=== PATIENT | female | born 1955 ===

== ENCOUNTER 2020-07-31 13:17 | Emergency (ER) | payer MEDICARE, SELFPAY ==
[2020-07-31 14:06] VITALS: BP 161/84; PULSE 77; RESP 16; TEMP 37.7; O2SAT 99; BMI 26.5
--- NOTE | 2020-07-31 15:11 | ED_ITS ---
HPI - General Adult General Chief complaint: Weakness Stated complaint: abd pain Time Seen by Provider: 07/31/20 15:11 Source: patient Mode of arrival: ambulatory Limitations: no limitations History of Present Illness HPI narrative: pleasant 65-year-old female with past medical significant for hypertension, depression, anxiety disorder, asthma, hypothyroidism, TIA in the past presents with complaint of body aches/chills for past couple days family member at home sick with similar symptoms they get tested for COVID-19 but have not gotten the results yet. Patient reports feeling same symptoms. Onset (ago): day(s) Severity: moderate Relieving factors: none Exacerbating factors: none Associated symptoms: denies other symptoms Related Data Allergies Allergy/AdvReac Type Severity Reaction Status Date / Time honey [HONEY] Allergy Severe RASH Unverified 06/21/20 15:27 morphine [Morphine] Allergy Severe ITCHING, Unverified 06/21/20 15:27 INCREASE ANXIETY, HALLUCINATION oxycodone [OXYCODONE] Allergy Intermediate ITCHING, Unverified 06/21/20 15:27 INCREASE ANXIETY. amoxicillin [Amoxicillin] Allergy Mild SWELLING Unverified 06/21/20 15:27 milk [Milk] AdvReac Mild DIARRHEA, Unverified 06/21/20 15:27 ABDOMINAL PAIN (REGULAR MILK ONLY) Review of Systems Review of Systems: Constitutional: No Weight loss, No Fever, + Chills, No Night Sweats, No Fatigue, + Malaise ENT/Mouth: No Hearing loss, No Ear Pain, No Nasal Congestion, No Sinus Pain, No Hoarseness, No sore throat, No Rhinorrhea, No Swallowing Difficulty Eyes: No Eye Pain, No Swelling, No Redness, No Foreign Body, No Discharge, No Vision Changes Cardiovascular: No Chest Pain, No SOB, No Dyspnea on Exertion, No Orthopnea, No Edema, No Palpitations Respiratory: No Cough, No Sputum, No Wheezing, No Smoke Exposure, No Dyspnea Gastrointestinal: No Nausea, No Vomiting, No Diarrhea, No Constipation, No abdominal Pain, No Hematochezia, No Melena Genitourinary: no irregular bleeding, No Dysuria, No Urinary Frequency, No Hematuria, No Urinary Incontinence, No Urgency, No Flank Pain, No Urinary Flow Changes, No Hesitancy Musculoskeletal: No joint pain, No Myalgias, No Joint Swelling Skin: No Skin Lesions, No rash Neuro: No Weakness, No Numbness, No Paresthesias, No Loss of Consciousness, No Dizziness, No Headache Psych: No Anxiety/Panic Heme/Lymph: No Bruising, No Bleeding,No Lymphadenopathy Endocrine: No Polyuria, No Polydipsia, No Temperature Intolerance Yes all other systems are reviewed and are negative [facility] Past Medical History Attestation statement: The following information was validated with the patient. Medical History (Updated 07/31/20 @ 18:30 by Artie Friedman NP) Adult hypothyroidism Asthma Colitis Hypertension Surgical History (Updated 07/31/20 @ 14:11 by Theo Fuentes) H/O section H/O: hysterectomy History of appendectomy History of cholecystectomy Social History Social History Smoking Status: Never smoker Use of substances other than those prescribed or required for medical reasons: No Advance Directives: No Advance Directives Information Provided: No Physical Exam Vital Signs: Vital Signs: Vital Signs Temp Pulse Resp BP Pulse Ox 07/31/20 17:42 98 F 76 16 164/77 H 07/31/20 17:10 98.4 F 71 16 164/77 H 99 07/31/20 14:06 99.8 F 77 16 161/84 H 99 Body Mass Index 26.5 reviewed Const: General: cooperative and healthy appearing; No acute distress or intoxicated appearing Nutritional Appearance: average body habitus Orientation/consciousness: patient oriented x3 HENMT: Head: Yes normal to inspection Ears: hearing grossly normal bilaterally Eyes: General: appearance normal, both eyes and all related structures Visual Marc: normal visual marc by confrontation Neck: Neck: Yes normal visual inspection, No positive Brudzinski's sign, No positive Kernig's sign and No tender Thyroid: Thyroid normal Chest: Chest palpation & inspection: normal inspection of the chest Resp: Effort & Inspection: normal respiratory effort Cardio: Jugular venous distension: no JVD GI: Inspection: Yes normal to inspection Percussion: Yes normal to percussion Auscultation: normal bowel sounds : General: Yes no CVA tenderness Back/Spine/Pelvis: Back: no CVA tenderness Skin: General skin exam: no rashes or lesions noted Neuro: General: patient oriented x3 Extrem: General: Yes normal to inspection Course Course Course Narrative: Left stable. Hemodynamically stable. In no acute distress. A/P consistent with viral syndrome type symptoms. COVID-19 negative. Hemodynamically stable plans/findings reviewed. With the negative test possibility still rest that she could still have COVID-19 cleared discharge return/follow-up instructions as well as CDC guidelines for self- isolation/social distancing provided. She verbalized understanding. Medical Decision Making Lab Data Result diagrams: 07/31/20 15:34 07/31/20 15:34 Labs: Lab Results 07/31/20 07/31/20 07/31/20 Range/Units 15:33 15:33 15:34 WBC 5.7 (4.8-10.8) X10*3/uL RBC 4.27 (4.20-5.50) X10*6/uL Hgb 12.7 (12.0-16.0) g/dl Hct 39.0 (37-47) % MCV 91.3 (80-98) fL MCH 29.7 (27.0-33.0) pg MCHC 32.6 (31.0-35.0) g/dl RDW 11.9 (11.0-16.0) % Plt Count 163 (160-400) X10*3/uL MPV 12.3 (9.4-12.3) fL Immature Gran % (Auto) 0.2 (0.0-0.4) % Neut % (Auto) 69.6 (45-73) % Lymph % (Auto) 21.2 (20-40) % [place] % (Auto) 8.8 (2-11) % Eos % (Auto) 0.0 (0-4) % Baso % (Auto) 0.2 (0-2) % Lymph # (Auto) 1.2 (1.2-4.9) X10*3/uL [place] # (Auto) 0.5 (0.1-1.2) X10*3/uL Eos # (Auto) 0.0 (0.0-0.4) X10*3/uL Baso # (Auto) 0.0 (0.0-0.2) X10*3/uL Abs Immat Gran (auto) 0.01 (0.00-0.03) X10*3/uL Absolute Neuts (auto) 4.0 (2.0-8.3) X10*3/uL Absolute Nucleated RBC 0.000 (0.0-0.012) X10*3/uL Nucleated RBC % (auto) 0.0 (0.0-0.2) /100WBC Sodium (135-145) mmol/L Potassium (3.3-5.1) mmol/l Chloride (96-108) mmol/L Carbon Dioxide (22-29) mmol/L Anion Gap (12-20) BUN (9-16) mg/dL Creatinine (0.5-1.4) mg/dL Estim Creat Clear Calc Estimated GFR Random Glucose (60-115) mg/dL Calcium (8.4-10.2) mg/dL Total Bilirubin (0.0-1.0) mg/dL AST (5-31) U/L ALT (0-31) U/L Alkaline Phosphatase (39-117) U/L Troponin I High Sens (<3.5-17.0) ng/L Total Protein (6.5-8.0) g/dL Albumin (3.5-5.0) g/dL Urine Color Urine Appearance Urine pH (5.0-8.0) Ur Specific [place] (1.005-1.025) Urine Protein (NEG-TRACE) MG/DL Urine Glucose (UA) (NEG) MG/DL Urine Ketones (NEG) MG/DL Urine Blood (NEG) Urine Nitrite (NEG) Ur Leukocyte Esterase (NEG) Urine RBC (0) /HPF Urine WBC (0-4) /HPF Ur Squamous Epith Cells /LPF Urine Bacteria /LPF Coronavirus (PCR) NEGATIVE (Negative) COVID-19 PCR Cancelled Influenza Type A (PCR) NEGATIVE (Negative) Influenza Type B (PCR) NEGATIVE (Negative) Influenza A & B Note See Note RSV RNA Qual (PCR) NEGATIVE (Negative) 07/31/20 07/31/20 07/31/20 Range/Units 15:34 15:34 17:11 WBC (4.8-10.8) X10*3/uL RBC (4.20-5.50) X10*6/uL Hgb (12.0-16.0) g/dl Hct (37-47) % MCV (80-98) fL MCH (27.0-33.0) pg MCHC (31.0-35.0) g/dl RDW (11.0-16.0) % Plt Count (160-400) X10*3/uL MPV (9.4-12.3) fL Immature Gran % (Auto) (0.0-0.4) % Neut % (Auto) (45-73) % Lymph % (Auto) (20-40) % [place] % (Auto) (2-11) % Eos % (Auto) (0-4) % Baso % (Auto) (0-2) % Lymph # (Auto) (1.2-4.9) X10*3/uL [place] # (Auto) (0.1-1.2) X10*3/uL Eos # (Auto) (0.0-0.4) X10*3/uL Baso # (Auto) (0.0-0.2) X10*3/uL Abs Immat Gran (auto) (0.00-0.03) X10*3/uL Absolute Neuts (auto) (2.0-8.3) X10*3/uL Absolute Nucleated RBC (0.0-0.012) X10*3/uL Nucleated RBC % (auto) (0.0-0.2) /100WBC Sodium 138 (135-145) mmol/L Potassium 3.7 (3.3-5.1) mmol/l Chloride 102 (96-108) mmol/L Carbon Dioxide 24 (22-29) mmol/L Anion Gap 16 (12-20) BUN 17 H (9-16) mg/dL Creatinine 0.87 (0.5-1.4) mg/dL Estim Creat Clear Calc 55.8 Estimated GFR > 60 Random Glucose 102 (60-115) mg/dL Calcium 8.3 L (8.4-10.2) mg/dL Total Bilirubin 0.6 (0.0-1.0) mg/dL AST 65 H (5-31) U/L ALT 48 H (0-31) U/L Alkaline Phosphatase 69 (39-117) U/L Troponin I High Sens 6.2 (<3.5-17.0) ng/L Total Protein 7.4 (6.5-8.0) g/dL Albumin 4.0 (3.5-5.0) g/dL Urine Color YELLOW Urine Appearance CLEAR Urine pH 6.5 (5.0-8.0) Ur Specific [place] 1.020 (1.005-1.025) Urine Protein NEG (NEG-TRACE) MG/DL Urine Glucose (UA) NEG (NEG) MG/DL Urine Ketones 15 (NEG) MG/DL Urine Blood NEG (NEG) Urine Nitrite NEG (NEG) Ur Leukocyte Esterase NEG (NEG) Urine RBC 0-2 (0) /HPF Urine WBC 1-4 (0-4) /HPF Ur Squamous Epith Cells 4+ /LPF Urine Bacteria NONE /LPF Coronavirus (PCR) (Negative) COVID-19 PCR Influenza Type A (PCR) (Negative) Influenza Type B (PCR) (Negative) Influenza A & B Note RSV RNA Qual (PCR) (Negative) Discharge Plan Discharge Clinical Impression: Viral syndrome Patient Disposition: Home, Self-Care Instructions: Viral Syndrome (ED) Additional Instructions: Push fluids Take medication prescribed Return if any concerns or worsening symptoms Thank you Referrals: Wesley Gonzalez MD [Primary Care Provider] - 1 week (Phone visit )
--- NOTE | 2020-07-31 15:14 | XR_ITS ---
EXAMINATION: XR CHEST CLINICAL INFORMATION: Weakness. COMPARISON: Chest 06/06/2020 TECHNIQUE: Frontal view of the chest was obtained. FINDINGS: No significant abnormality is noted involving the heart, lungs, mediastinum, bony thorax or soft tissues. XR/XR chest 1V IMPRESSION: Unremarkable chest examination.
--- NOTE | 2020-07-31 15:17 | ECG_ITS ---
Test Reason : WEAKNESS Blood Pressure : / mmHG Vent. Rate : 071 BPM Atrial Rate : 071 BPM P-R Int : 130 ms QRS Dur : 098 ms QT Int : 416 ms P-R-T Axes : 002 -15 035 degrees QTc Int : 452 ms Normal sinus rhythm Left axis deviation Nonspecific ST abnormality Lateral leads Abnormal ECG When compared with ECG of 06-JUN-2020 23:35, No significant change was found Referred By: Artie Friedman Electronically Signed By:SHANE TRACY MD
[2020-07-31] MEDS: 0.9 % Sodium Chloride 500 ML 1000 ML IV (15:41)
[2020-07-31 15:43] LABS: MANUAL DIFF FLAG NO
--- NOTE | 2020-07-31 15:43 | PC.NURSE ---
iv fluids runing, ekg completed
[2020-07-31 15:44] LABS: Basophils Percent Auto 0.2 % (0-2); Hemoglobin 12.7 g/dl (12.0-16.0); Imm Gran Abs Auto 0.01 X10*3/uL (0.00-0.03); Imm Gran Pct Auto 0.2 % (0.0-0.4); Lymphocytes Absolute Auto 1.2 X10*3/uL (1.2-4.9); Lymphocytes Percent Auto 21.2 % (20-40); Mean Corpuscular HGB Conc 32.6 g/dl (31.0-35.0); Mean Corpuscular Hemoglobin 29.7 pg (27.0-33.0); Mean Corpuscular Volume 91.3 fL (80-98); Mean Platelet Volume 12.3 fL (9.4-12.3); Monocytes Absolute Auto 0.5 X10*3/uL (0.1-1.2); Monocytes Percent Auto 8.8 % (2-11); Neutrophils Percent Auto 69.6 % (45-73); Platelet Count 163 X10*3/uL (160-400); Red Blood Count 4.27 X10*6/uL (4.20-5.50); Red Cell Distribution Width 11.9 % (11.0-16.0); White Blood Count 5.7 X10*3/uL (4.8-10.8)
--- NOTE | 2020-07-31 15:47 | PC.NURSE ---
PT IS CALM AND COOPERATIVE
[2020-07-31 16:12] LABS: Troponin-I High Sensitivity 6.2 ng/L (<3.5-17.0)
[2020-07-31 16:13] LABS: Alanine Aminotransferase 48 U/L (0-31); Alkaline Phosphatase 69 U/L (39-117); Anion Gap 16 (12-20); Aspartate Amino Transferase 65 U/L (5-31); Bilirubin Total 0.6 mg/dL (0.0-1.0); Blood Urea Nitrogen 17 mg/dL (9-16); Calcium 8.3 mg/dL (8.4-10.2); Carbon Dioxide 24 mmol/L (22-29); Chloride 102 mmol/L (96-108); Creatinine Clr Calc Pharmacy 55.8; Estimated Glomerular Filt Rate > 60; Glucose Random 102 mg/dL (60-115); Potassium 3.7 mmol/l (3.3-5.1); Sodium 138 mmol/L (135-145); Total Protein 7.4 g/dL (6.5-8.0)
[2020-07-31 16:18] LABS: Influenza A PCR NEGATIVE (Negative); Influenza B PCR NEGATIVE (Negative)
[2020-07-31 16:23] LABS: Resp Syncy Virus RNA Qual PCR NEGATIVE (Negative)
[2020-07-31 16:43] LABS: SARS COV2 PCR INHOUSE NEGATIVE (Negative)
[2020-07-31] MEDS: Acetaminophen 325 MG TABLET 975 MG PO (16:46)
[2020-07-31 17:10] VITALS: BP 164/77; PULSE 71; RESP 16; TEMP 36.9; O2SAT 99
[2020-07-31 17:27] LABS: Glucose Urine UA NEG (NEG); Leukocyte Esterase Urine NEG (NEG); Nitrite Urine NEG (NEG); PH 6.5 (5.0-8.0); Urine Blood NEG (NEG); Urine Ketones 15 MG/DL (NEG); Urine Protein NEG (NEG-TRACE)
[2020-07-31 17:29] LABS: Appearance Urine CLEAR; Color Urine YELLOW
[2020-07-31 17:35] LABS: RBC Urine 0-2 /HPF (0); Squamous Epithelial Cell Urine 4+ /LPF
[2020-07-31 17:42] VITALS: BP 164/77; PULSE 76; RESP 16; TEMP 36.6
== END 2020-07-31 18:44 | disposition home or self-care (01) ==
PROVIDERS: Nurse Practitioner Primary Care; Emergency Provider Internal Medicine; PCP Internal Medicine
DX: B34.9 Viral infection, unspecified (principal); I10 Essential (primary) hypertension; J45.909 Unspecified asthma, uncomplicated; Z20.828 Contact with and (suspected) exposure to other viral communicable diseases; Z79.899 Other long term (current) drug therapy
CPT/HCPCS: 36415; 71045; 80053; 81001; 84484; 85025; 87631; 87635; 93005; 99283; 99284

== ENCOUNTER 2021-04-11 14:44 | Emergency (ER) | payer MEDICARE, SELFPAY ==
[2021-04-11 15:38] VITALS: BP 156/69; PULSE 60; RESP 17; TEMP 36.4; O2SAT 98; BMI 29.2
--- NOTE | 2021-04-11 16:34 | ED.BACK ---
HPI - Back Pain/Injury General Chief Complaint: Back Pain/Injury Stated Complaint: sharp back pain Time Seen by Provider: 04/11/21 16:34 History of Present Illness HPI Narrative: patient complains of right-sided back pain radiating to her lower leg similar to many prior episodes after packing and lifting boxes to help someone move 2 days ago, no radiation no numbness no weakness no tingling no changes to bowel or bladder Related Data Previous Rx's Medication Instructions Recorded acetaminophen 500 mg tablet 1,000 mg PO QID PRN #30 tab 04/11/21 diazepam 5 mg tablet (Valium) 5 mg PO Q8H PRN #10 tab 04/11/21 ibuprofen 600 mg tablet 600 mg PO Q6H PRN #20 tab 04/11/21 tramadol 50 mg tablet 50 mg PO Q8H PRN #14 tab 04/11/21 prednisone 20 mg tablet 60 mg PO DAILY 7 Days #21 tab 04/18/21 Allergies Allergy/AdvReac Type Severity Reaction Status Date / Time honey [HONEY] Allergy Severe RASH Verified 04/11/21 15:38 morphine [Morphine] Allergy Severe ITCHING, Verified 04/11/21 15:38 INCREASE ANXIETY, HALLUCINATION oxycodone [OXYCODONE] Allergy Intermediate ITCHING, Verified 04/11/21 15:38 INCREASE ANXIETY. amoxicillin [Amoxicillin] Allergy Mild SWELLING Verified 04/11/21 15:38 milk [Milk] AdvReac Mild DIARRHEA, Verified 04/11/21 15:38 ABDOMINAL PAIN (REGULAR MILK ONLY) Review of Systems Review of Systems: Positive for right-sided back pain Negatives are no fever no chills no dizziness no weakness no fainting no feeling faint no headache no neck pain no chest pain no shortness of breath no abdominal pain no nausea vomiting no dysuria no fever no incontinence no changes to bowel or bladder no frequency no skin rash no numbness weakness or tingling Yes all other systems are reviewed and are negative PMFSH Past Medical History Source: nursing notes reviewed Medical History Adult hypothyroidism Asthma Colitis Hypertension Surgical History H/O section H/O: hysterectomy History of appendectomy History of cholecystectomy Physical Exam Vital Signs: Vital Signs: Last Vital Signs Temp 97.6 F 04/11/21 15:38 Pulse 60 04/11/21 15:38 Resp 17 04/11/21 15:38 BP 156/69 H 04/11/21 15:38 Pulse Ox 98 04/11/21 15:38 Body Mass Index 29.2 General appearance no acute distress Head is normocephalic atraumatic The neck is supple Chest is clear to auscultation bilateral Heart no murmur Abdomen soft nontender The back had right paraspinal lower lumbar tenderness, no midline tenderness no CVA tenderness, pain was reproducible with movement, skin was normal with no rash or redness Extremities full range of motion x4 Neuro no gross motor or sensory deficit, motor was 5/5 x4 Course Course Course Narrative: Well-appearing patient with flare up of back pain similar to many prior episodes is discharged with symptomatic treatment and follow with primary doctor Discharge Plan Discharge Clinical Impression: Lumbar radiculopathy Patient Disposition: Home, Self-Care Additional Instructions: follow with primary doctor for further evaluation Prescriptions: New tramadol 50 mg tablet 50 mg PO Q8H PRN (Reason: pain) Qty: 14 RF: 0 diazepam [Valium] 5 mg tablet 5 mg PO Q8H PRN (Reason: muscle spasm) Qty: 10 RF: 0 ibuprofen 600 mg tablet 600 mg PO Q6H PRN (Reason: pain) Qty: 20 RF: 0 acetaminophen 500 mg tablet 1,000 mg PO QID PRN (Reason: pain) Qty: 30 RF: 0 No Action prednisone 20 mg tablet 60 mg PO DAILY 7 Days Qty: 21 RF: 0 Interventions: ED Discharge Assessment Last Done: 04/11/21 17:01 Discharge Date/Time: 04/11/21 17:02
[2021-04-11] MEDS: Ketorolac Tromethamine 30 MG/ML VIAL IM (16:59)
== END 2021-04-11 17:02 | disposition home or self-care (01) ==
PROVIDERS: Emergency Provider Emergency Medicine Emergency Medical Services; PCP Internal Medicine
DX: M54.16 Radiculopathy, lumbar region (principal)
CPT/HCPCS: 96372; 99284; J1885

== ENCOUNTER 2021-04-18 00:01 | Emergency (ER) | payer MEDICARE, SELFPAY ==
[2021-04-18 00:06] VITALS: BP 151/68; PULSE 78; RESP 18; TEMP 37.5; O2SAT 99; BMI 29.2
--- NOTE | 2021-04-18 01:00 | ED.GENADULT ---
HPI - General Adult General Chief complaint: General Medical Stated complaint: allergic reaction to medication Time Seen by Provider: 04/18/21 00:43 Source: patient Mode of arrival: ambulatory Limitations: no limitations History of Present Illness HPI narrative: 65-year-old female who presents emergency department for evaluation of a painful rash on her lower extremities. The patient was seen in the emergency department on 04/15/2021 for back pain. The patient was given prescriptions for diazepam, tramadol and ibuprofen. She states that she was taking diazepam and tramadol. She states she was taking these medications once a day. She states that on 04/16/2021 she developed a rash on her lower extremities. She states the rash is a sharp painful rash which is gotten progressively worse. She denies pruritus. She denied chest pain, shortness of breath, swelling of her lips, tongue, face. She denied nausea or vomiting. Related Data Previous Rx's Medication Instructions Recorded acetaminophen 1,000 mg PO QID PRN #30 tab 04/11/21 diazepam [Valium] 5 mg PO Q8H PRN #10 tab 04/11/21 ibuprofen 600 mg PO Q6H PRN #20 tab 04/11/21 tramadol 50 mg PO Q8H PRN #14 tab 04/11/21 prednisone 60 mg PO DAILY 7 Days #21 tab 04/18/21 Allergies Allergy/AdvReac Type Severity Reaction Status Date / Time honey [HONEY] Allergy Severe RASH Verified 04/11/21 15:38 morphine [Morphine] Allergy Severe ITCHING, Verified 04/11/21 15:38 INCREASE ANXIETY, HALLUCINATION oxycodone [OXYCODONE] Allergy Intermediate ITCHING, Verified 04/11/21 15:38 INCREASE ANXIETY. amoxicillin [Amoxicillin] Allergy Mild SWELLING Verified 04/11/21 15:38 milk [Milk] AdvReac Mild DIARRHEA, Verified 04/11/21 15:38 ABDOMINAL PAIN (REGULAR MILK ONLY) Review of Systems Review of Systems: Yes all other systems are reviewed and are negative Neurologic: Reports Abnormal speech present [facility] Past Medical History [facility] Narrative: Social history: She denies tobacco, alcohol and drug use. Medical History Adult hypothyroidism Asthma Colitis Hypertension Surgical History H/O section H/O: hysterectomy History of appendectomy History of cholecystectomy Social History Social History Advance Directives: No Advance Directives Information Provided: No Physical Exam Vital Signs: Vital Signs: Last Vital Signs Temp 99.5 F 04/18/21 00:06 Pulse 78 04/18/21 00:06 Resp 18 04/18/21 01:43 BP 151/68 H 04/18/21 00:06 Pulse Ox 99 04/18/21 00:06 Body Mass Index 29.2 Const: General: cooperative Orientation/consciousness: oriented to person and oriented to place Limitations: no limitations HENMT: Head: Yes normal to inspection, Yes normocephalic and Yes atraumatic Ears: external ears normal General nose exam: Normal external nose present Face and sinus: Yes normal facial exam Mouth: Normal oral and palatal mucosa present Throat: Yes posterior oropharynx normal Eyes: Periorbital: periorbital findings normal Eyelids: Yes eyelids normal Conjunctivae: conjunctivae normal Sclerae: sclerae normal Corneas: corneas normal Pupils: Equal, round and reactive pupils present Direct Ophthalmoscopy: normal light reflex Neck: Neck: Yes full ROM, Yes no lymphadenopathy, Yes no meningeal signs, Yes trachea midline and Yes supple Chest: Chest palpation & inspection: normal inspection of the chest and normal palpation of entire chest wall Resp: Effort & Inspection: normal respiratory effort and able to speak in complete sentences Auscultation: clear to auscultation bilaterally Cardio: Rate: regular rate Rhythm: regular rhythm Heart sounds: S1 normal heart sound present, S2 normal heart sound present and no murmurs GI: Inspection: Yes normal to inspection Palpation (GI): Soft to palpation, nontender, no guarding, not rigid and No hepatosplenomegaly present Back/Spine/Pelvis: Other: The patient has tenderness with palpation of her thoracic and lumbar spine and paraspinal muscles. Skin: Other: The patient has a spotty, erythematous, nonblanching rash on her lower extremities mainly with some confluence of the rash on her inner thighs and some small spots of erythema on her left forearm. Neuro: General: oriented to person, oriented to place and no meningeal signs Cranial nerves: Yes Equal, round and reactive pupils present Cognition (Neuro): normal cognition Speech: Abnormal speech present Motor exam (neuro): 5/5 motor strength present throughout Extrem: General: Yes normal to inspection and Yes full ROM Psych: Appearance: well kempt Mental Status: mental status grossly normal Speech and movement: Normal speech and movement present Affect: normal affect Attitude: cooperative Thought process: Normal thought process present Thought content: Normal thought content present Course Course Course Narrative: 65-year-old female who presents to emergency department for evaluation of a painful rash mainly on her lower extremities which started 1 day after the patient began medications for back pain (tramadol, diazepam and ibuprofen). The patient's rash is an erythematous spotty rash which is nonblanching and this rash is consistent with a vasculitis. I did order laboratory evaluation on this patient. The patient will be treated with Solu-Medrol 125 mg IV. She is also having moderate to severe back pain and she was treated with Dilaudid 1 mg IV and Benadryl 25 mg IV. 0209: The patient's laboratory evaluation is pending. Therefore, at the end of my shift, the patient's care was turned over to my colleague, Dr. Marychuy Nicholas. Discharge Plan Discharge Clinical Impression: Vasculitis limited to skin Patient Disposition: Home, Self-Care Additional Instructions: The rash on your legs is consistent with a a drug-induced vasculitis (your immune system is causing small blood vessels to week and bleed). I suspect that the drug-induced vasculitis was caused by tramadol, stop taking this medication. Take prednisone 20 mg pills, 3 pills once a day for 7 days. Follow-up with your doctor in 2 days. Please return to the emergency department if your symptoms get worse or if you develop any symptoms that are concerning to you. Prescriptions: New prednisone 20 mg tablet 60 mg PO DAILY 7 Days Qty: 21 RF: 0 No Action tramadol 50 mg tablet 50 mg PO Q8H PRN (Reason: pain) Qty: 14 RF: 0 diazepam [Valium] 5 mg tablet 5 mg PO Q8H PRN (Reason: muscle spasm) Qty: 10 RF: 0 ibuprofen 600 mg tablet 600 mg PO Q6H PRN (Reason: pain) Qty: 20 RF: 0 acetaminophen 500 mg tablet 1,000 mg PO QID PRN (Reason: pain) Qty: 30 RF: 0
[2021-04-18] MEDS: methylPREDNISolone Sod Succ 125 MG/2 ML VIAL IVPUSH (01:42)
[2021-04-18] MEDS: diphenhydrAMINE HCL 50 MG/ML VIAL 25 MG IVPUSH (01:42)
[2021-04-18 01:43] VITALS: RESP 18
[2021-04-18] MEDS: HYDROmorphone HCl 1 MG/ML SYRINGE IVPUSH (01:43)
[2021-04-18 02:08] VITALS: BP 134/83; PULSE 85; RESP 18; O2SAT 98
[2021-04-18 02:26] LABS: Lymphocytes Percent Auto 29.3 % (20-40); MANUAL DIFF FLAG SCAN; Mean Platelet Volume 12.2 fL (9.4-12.3); PLT CLUMP 1; SCAN SMEAR FLAG 1
[2021-04-18 02:27] VITALS: BP 143/72; PULSE 82; RESP 16; O2SAT 97
[2021-04-18 02:28] LABS: Basophils Percent Auto 0.3 % (0-2); Eosinophils Absolute Auto 0.2 X10*3/uL (0.0-0.4); Eosinophils Percent Auto 1.7 % (0-4); Hematocrit 40.8 % (37-47); Hemoglobin 13.3 g/dl (12.0-16.0); Imm Gran Abs Auto 0.03 X10*3/uL (0.00-0.03); Imm Gran Pct Auto 0.3 % (0.0-0.4); Lymphocytes Absolute Auto 2.8 X10*3/uL (1.2-4.9); Mean Corpuscular HGB Conc 32.6 g/dl (31.0-35.0); Mean Corpuscular Hemoglobin 30.2 pg (27.0-33.0); Mean Corpuscular Volume 92.5 fL (80-98); Monocytes Absolute Auto 0.8 X10*3/uL (0.1-1.2); Monocytes Percent Auto 8.7 % (2-11); Neutrophils Absolute Auto 5.7 X10*3/uL (2.0-8.3); Neutrophils Percent Auto 59.7 % (45-73); Platelet Count 237 X10*3/uL (160-400); Red Blood Count 4.41 X10*6/uL (4.20-5.50); Red Cell Distribution Width 12.1 % (11.0-16.0); White Blood Count 9.5 X10*3/uL (4.8-10.8)
[2021-04-18 02:44] VITALS: BP 148/72; PULSE 87; RESP 16
[2021-04-18 02:48] LABS: SLIDE REVIEW VERIFIED
[2021-04-18 02:58] LABS: Alanine Aminotransferase 32 U/L (0-31); Albumin Level 4.1 g/dL (3.5-5.0); Alkaline Phosphatase 100 U/L (39-117); Anion Gap 15 (12-20); Aspartate Amino Transferase 48 U/L (5-31); Bilirubin Total 0.3 mg/dL (0.0-1.0); Blood Urea Nitrogen 23 mg/dL (9-16); C Reactive Protein 1.09 mg/dL (< or = 0.50); Carbon Dioxide 23 mmol/L (22-29); Chloride 107 mmol/L (96-108); Creatinine Clr Calc Pharmacy 45.1; Estimated Glomerular Filt Rate 53; Glucose Random 126 mg/dL (60-115); Potassium 3.4 mmol/L (3.3-5.1); Sodium 142 mmol/L (135-145); Total Protein 8.3 g/dL (6.5-8.0)
[2021-04-18 03:15] LABS: Erythrocyte Sedimentation Rate 54 MM/HR (0-20)
[2021-04-18 03:48] VITALS: BP 137/65; PULSE 81; RESP 16
[2021-04-18] MEDS: Lidocaine 4 % Patch ADH..PATCH 1 PATCH TRANSDERMA (03:49)
== END 2021-04-18 03:56 | disposition home or self-care (01) ==
PROVIDERS: Emergency Provider Emergency Medicine Emergency Medical Services; PCP Internal Medicine
DX: L95.9 Vasculitis limited to the skin, unspecified (principal); M54.9 Dorsalgia, unspecified
CPT/HCPCS: 36415; 80053; 85025; 85652; 86140; 96374; 96375; 99284; J1170; J1200; J2930

== ENCOUNTER 2021-04-29 13:28 | Outpatient (REF) | payer MEDICARE, SELFPAY ==
[2021-04-29 14:08] LABS: MANUAL DIFF FLAG NO
[2021-04-29 14:12] LABS: Basophils Percent Auto 0.3 % (0-2); Eosinophils Absolute Auto 0.2 X10*3/uL (0.0-0.4); Eosinophils Percent Auto 2.5 % (0-4); Hematocrit 39.9 % (37-47); Hemoglobin 12.7 g/dl (12.0-16.0); Imm Gran Abs Auto 0.02 X10*3/uL (0.00-0.03); Imm Gran Pct Auto 0.3 % (0.0-0.4); Lymphocytes Percent Auto 31.1 % (20-40); Mean Corpuscular HGB Conc 31.8 g/dl (31.0-35.0); Mean Corpuscular Hemoglobin 30.1 pg (27.0-33.0); Mean Corpuscular Volume 94.5 fL (80-98); Mean Platelet Volume 11.3 fL (9.4-12.3); Monocytes Absolute Auto 0.6 X10*3/uL (0.1-1.2); Neutrophils Absolute Auto 3.5 X10*3/uL (2.0-8.3); Neutrophils Percent Auto 55.8 % (45-73); Platelet Count 296 X10*3/uL (160-400); Red Blood Count 4.22 X10*6/uL (4.20-5.50); Red Cell Distribution Width 12.2 % (11.0-16.0); White Blood Count 6.3 X10*3/uL (4.8-10.8)
[2021-04-29 14:14] LABS: Glucose Urine UA NEG (NEG); Leukocyte Esterase Urine 2+ (NEG); Nitrite Urine NEG (NEG); Specific Gravity - Urine >= 1.030 (1.005-1.025); UACC Culture Trigger YES; Urine Blood 1+ (NEG); Urine Ketones NEG (NEG); Urine Protein 1+ MG/DL (NEG-TRACE)
[2021-04-29 14:24] LABS: Estimated Average Glucose 120 mg/dL; Hemoglobin A1c % 5.8 %
[2021-04-29 14:38] LABS: Alanine Aminotransferase 48 U/L (0-31); Albumin Level 4.1 g/dL (3.5-5.0); Alkaline Phosphatase 88 U/L (39-117); Anion Gap 11 (12-20); Aspartate Amino Transferase 54 U/L (5-31); Bilirubin Total 0.4 mg/dL (0.0-1.0); Blood Urea Nitrogen 21 mg/dL (9-16); Calcium 9.8 mg/dL (8.4-10.2); Carbon Dioxide 28 mmol/L (22-29); Chloride 106 mmol/L (96-108); Estimated Glomerular Filt Rate 57; Glucose Random 109 mg/dL (60-115); Potassium 4.7 mmol/L (3.3-5.1); Sodium 140 mmol/L (135-145)
[2021-04-29 14:44] LABS: Appearance Urine HAZY; Color Urine YELLOW
[2021-04-29 15:07] LABS: WBC Urine 30-49 /HPF (0-4)
[2021-04-29 15:08] LABS: Squamous Epithelial Cell Urine 1+ /LPF
[2021-04-29 15:09] LABS: T4 Thyroxine 7.9 ug/dL (4.5-12.0); Thyroid Stimulating Hormone 2.54 uIU/mL (0.32-4.0)
== END 2021-04-29 13:29 | disposition home or self-care (01) ==
LOC: HO.LAB 13:28
PROVIDERS: PCP Internal Medicine; Visit Provider Internal Medicine
DX: R73.03 Prediabetes (principal); R79.89 Other specified abnormal findings of blood chemistry; I10 Essential (primary) hypertension; E03.9 Hypothyroidism, unspecified; R30.0 Dysuria
CPT/HCPCS: 36415; 80053; 81001; 81003; 83036; 84436; 84443; 85025; 87086

== ENCOUNTER 2022-03-11 15:39 | Emergency (ER) | payer OTHER, SELFPAY ==
[2022-03-11 15:58] VITALS: BP 153/85; PULSE 73; RESP 18; TEMP 36.9; O2SAT 98; BMI 28.3
[2022-03-11 16:19] LABS: MANUAL DIFF FLAG NO
[2022-03-11 16:25] LABS: Basophils Percent Auto 0.4 % (0-2); Eosinophils Percent Auto 0.4 % (0-4); Hematocrit 40.7 % (37.0-47.0); Hemoglobin 13.1 g/dl (12.0-16.0); Imm Gran Abs Auto 0.01 X10*3/uL (0.00-0.03); Imm Gran Pct Auto 0.2 % (0.0-0.4); Lymphocytes Absolute Auto 1.1 X10*3/uL (1.2-4.9); Mean Corpuscular HGB Conc 32.2 g/dl (31.0-35.0); Mean Corpuscular Hemoglobin 29.6 pg (27.0-33.0); Mean Corpuscular Volume 91.9 fL (80.0-98.0); Mean Platelet Volume 11.2 fL (9.4-12.3); Monocytes Absolute Auto 0.6 X10*3/uL (0.1-1.2); Monocytes Percent Auto 10.6 % (2-11); Neutrophils Absolute Auto 3.7 x10*3/uL (2.0-8.3); Neutrophils Percent Auto 68.4 % (45-73); Platelet Count 236 X10*3/uL (160-400); Red Blood Count 4.43 X10*6/uL (4.20-5.50); Red Cell Distribution Width 12.6 % (11.0-16.0); White Blood Count 5.5 X10*3/uL (4.8-10.8)
[2022-03-11 16:39] LABS: Alanine Aminotransferase 71 U/L (0-31); Albumin Level 4.1 g/dL (3.5-5.0); Alkaline Phosphatase 106 U/L (39-117); Anion Gap 12 (12-20); Aspartate Amino Transferase 102 U/L (5-31); Bilirubin Total 0.6 mg/dL (0.0-1.0); Blood Urea Nitrogen 13 mg/dL (9-16); Calcium 9.5 mg/dL (8.4-10.2); Carbon Dioxide 27 mmol/L (22-29); Chloride 102 mmol/L (96-108); Estimated Glomerular Filt Rate > 60; Glucose Random 120 mg/dL (60-115); Potassium 3.7 mmol/L (3.3-5.1); Sodium 137 mmol/L (135-145); Total Protein 8.1 g/dL (6.5-8.0)
[2022-03-11 16:43] LABS: COVID-19 Test Negative (Negative)
[2022-03-11 16:44] LABS: IDNOW Serial# 16C4AD1C; Influenza A Negative (Negative); Influenza B2 Negative (Negative)
--- NOTE | 2022-03-11 17:32 | ED_ITS ---
HPI - Headache General Chief Complaint: Headache Stated Complaint: fever/headaches Time Seen by Provider: 03/11/22 17:32 Source: patient Mode of arrival: ambulatory Limitations: no limitations History of Present Illness HPI Narrative: Patients have chronic headaches and sinus problems complaining of frontal headache in occipital pain for last few days also had low-grade fever for last 2 days 100.4 nasal discharge with some blood sometimes no shortness of breath no cough no chest pain no urinary complaints Related Data Previous Rx's Medication Instructions Recorded acetaminophen 500 mg tablet 1,000 mg PO QID PRN #30 tab 04/11/21 diazepam 5 mg tablet (Valium) 5 mg PO Q8H PRN #10 tab 04/11/21 ibuprofen 600 mg tablet 600 mg PO Q6H PRN #20 tab 04/11/21 tramadol 50 mg tablet 50 mg PO Q8H PRN #14 tab 04/11/21 prednisone 20 mg tablet 60 mg PO DAILY 7 Days #21 tab 04/18/21 azithromycin 500 mg tablet 500 mg PO DAILY 3 Days #3 tab 03/11/22 (Zithromax TRI-SOUMYA) [id number] 1 cap PO Q6H PRN #20 cap 03/11/22 50 mg-300 mg-40 mg capsule (Fioricet) Allergies Allergy/AdvReac Type Severity Reaction Status Date / Time honey [HONEY] Allergy Severe RASH Verified 03/11/22 15:57 morphine [Morphine] Allergy Severe ITCHING, Verified 03/11/22 15:57 INCREASE ANXIETY, HALLUCINATION oxycodone [OXYCODONE] Allergy Intermediate ITCHING, Verified 03/11/22 15:57 INCREASE ANXIETY. amoxicillin [Amoxicillin] Allergy Mild SWELLING Verified 03/11/22 15:57 milk [Milk] AdvReac Mild DIARRHEA, Verified 03/11/22 15:57 ABDOMINAL PAIN (REGULAR MILK ONLY) Review of Systems Review of Systems: Yes all other systems are reviewed and are negative PMFSH Past Medical History Medical History Adult hypothyroidism Asthma Colitis Hypertension Surgical History H/O section H/O: hysterectomy History of appendectomy History of cholecystectomy Social History Social History Advance Directives: No Advance Directives Information Provided: No Physical Exam Vital Signs: Vital Signs: Last Vital Signs Temp 98.4 F 03/11/22 15:58 Pulse 83 03/11/22 18:00 Resp 18 03/11/22 18:00 BP 163/65 H 03/11/22 18:00 Pulse Ox 99 03/11/22 18:00 BMI result Body Mass Index 28.3 Appearance: Alert. Oriented X3. No acute distress. Eyes: PERRLA, ENT: Pharynx normal. Oral Mucosa moist frontal sinus tenderness, maxillary sinus tenderness bilaterally Neck: Normal inspection. Neck supple. CVS: Normal heart rate and rhythm. Pulses normal. Respiratory: No respiratory distress. Equal air entry bilateral, no wheezing/rales/rhonchi Abdomen: Soft and nontender. Bowel sounds are present, no mass palpable, Skin: Skin warm and dry. Normal skin color. Normal skin turgor. Extremities: No lower extremity edema. No calf tenderness Neuro: Oriented X 3. No motor deficit. MDM - Headache Lab Data Result diagrams: 03/11/22 16:13 03/11/22 16:13 Labs: Lab Results 03/11/22 03/11/22 03/11/22 Range/Units 16:13 16:13 16:13 WBC 5.5 (4.8-10.8) X10*3/uL RBC 4.43 (4.20-5.50) X10*6/uL Hgb 13.1 (12.0-16.0) g/dl Hct 40.7 (37.0-47.0) % MCV 91.9 (80.0-98.0) fL MCH 29.6 (27.0-33.0) pg MCHC 32.2 (31.0-35.0) g/dl RDW 12.6 (11.0-16.0) % Plt Count 236 (160-400) X10*3/uL MPV 11.2 (9.4-12.3) fL Immature Gran % (Auto) 0.2 (0.0-0.4) % Neut % (Auto) 68.4 (45-73) % Lymph % (Auto) 20.0 (20-40) % [place] % (Auto) 10.6 (2-11) % Eos % (Auto) 0.4 (0-4) % Baso % (Auto) 0.4 (0-2) % Lymph # (Auto) 1.1 L (1.2-4.9) X10*3/uL [place] # (Auto) 0.6 (0.1-1.2) X10*3/uL Eos # (Auto) 0.0 (0.0-0.4) X10*3/uL Baso # (Auto) 0.0 (0.0-0.2) X10*3/uL Abs Immat Gran (auto) 0.01 (0.00-0.03) X10*3/uL Absolute Neuts (auto) 3.7 (2.0-8.3) x10*3/uL Absolute Nucleated RBC 0.000 (0.0-0.012) X10*3/uL Nucleated RBC % (auto) 0.0 (0.0-0.2) /100WBC Sodium 137 (135-145) mmol/L Potassium 3.7 D (3.3-5.1) mmol/L Chloride 102 (96-108) mmol/L Carbon Dioxide 27 (22-29) mmol/L Anion Gap 12 (12-20) BUN 13 (9-16) mg/dL Creatinine 0.91 (0.5-1.4) mg/dL Estim Creat Clear Calc 50.0 Estimated GFR > 60 Random Glucose 120 H (60-115) mg/dL Calcium 9.5 (8.4-10.2) mg/dL Total Bilirubin 0.6 (0.0-1.0) mg/dL AST 102 H (5-31) U/L ALT 71 H (0-31) U/L Alkaline Phosphatase 106 D (39-117) U/L Total Protein 8.1 H (6.5-8.0) g/dL Albumin 4.1 (3.5-5.0) g/dL Urine Color Urine Appearance Urine pH (5.0-8.0) Ur Specific [place] (1.005-1.025) Urine Protein (NEG-TRACE) MG/DL Urine Glucose (UA) (NEG) MG/DL Urine Ketones (NEG) MG/DL Urine Blood (NEG) Urine Nitrite (NEG) Ur Leukocyte Esterase (NEG) COVID-19 (LAVINIA) (Negative) COVID-19 [facility] Influenza Type A ([place]STANTIN) Negative (Negative) Influenza Type B (KONSTANTIN) Negative (Negative) Influenza A & B Note See Note 03/11/22 03/11/22 Range/Units 16:13 18:21 WBC (4.8-10.8) X10*3/uL RBC (4.20-5.50) X10*6/uL Hgb (12.0-16.0) g/dl Hct (37.0-47.0) % MCV (80.0-98.0) fL MCH (27.0-33.0) pg MCHC (31.0-35.0) g/dl RDW (11.0-16.0) % Plt Count (160-400) X10*3/uL MPV (9.4-12.3) fL Immature Gran % (Auto) (0.0-0.4) % Neut % (Auto) (45-73) % Lymph % (Auto) (20-40) % [place] % (Auto) (2-11) % Eos % (Auto) (0-4) % Baso % (Auto) (0-2) % Lymph # (Auto) (1.2-4.9) X10*3/uL [place] # (Auto) (0.1-1.2) X10*3/uL Eos # (Auto) (0.0-0.4) X10*3/uL Baso # (Auto) (0.0-0.2) X10*3/uL Abs Immat Gran (auto) (0.00-0.03) X10*3/uL Absolute Neuts (auto) (2.0-8.3) x10*3/uL Absolute Nucleated RBC (0.0-0.012) X10*3/uL Nucleated RBC % (auto) (0.0-0.2) /100WBC Sodium (135-145) mmol/L Potassium (3.3-5.1) mmol/L Chloride (96-108) mmol/L Carbon Dioxide (22-29) mmol/L Anion Gap (12-20) BUN (9-16) mg/dL Creatinine (0.5-1.4) mg/dL Estim Creat Clear Calc Estimated GFR Random Glucose (60-115) mg/dL Calcium (8.4-10.2) mg/dL Total Bilirubin (0.0-1.0) mg/dL AST (5-31) U/L ALT (0-31) U/L Alkaline Phosphatase (39-117) U/L Total Protein (6.5-8.0) g/dL Albumin (3.5-5.0) g/dL Urine Color YELLOW Urine Appearance CLEAR Urine pH 7.0 (5.0-8.0) Ur Specific [place] 1.020 (1.005-1.025) Urine Protein TRACE (NEG-TRACE) MG/DL Urine Glucose (UA) NEG (NEG) MG/DL Urine Ketones 5 (NEG) MG/DL Urine Blood NEG (NEG) Urine Nitrite NEG (NEG) Ur Leukocyte Esterase NEG (NEG) COVID-19 (LAVINIA) Negative (Negative) COVID-19 Clin Com See Note Influenza Type A ([place]STANTIN) (Negative) Influenza Type B (KONSTANTIN) (Negative) Influenza A & B Note Discharge Plan Discharge Clinical Impression: Sinusitis Patient Disposition: Home, Self-Care Instructions: Rhinosinusitis (ED) Additional Instructions: Take antibiotic as prescribed and medication for headache Follow with PCP if not better Prescriptions: New azithromycin [Zithromax TRI-SOUMYA] 500 mg tablet 500 mg PO DAILY 3 Days Qty: 3 0RF [id number] [Fioricet] 50-300-40 mg capsule 1 cap PO Q6H PRN (Reason: headache) Qty: 20 0RF No Action tramadol 50 mg tablet 50 mg PO Q8H PRN (Reason: pain) Qty: 14 0RF diazepam [Valium] 5 mg tablet 5 mg PO Q8H PRN (Reason: muscle spasm) Qty: 10 0RF Rx Instructions: this medication causes drowsiness, no driving for 8 hours after taking ibuprofen 600 mg tablet 600 mg PO Q6H PRN (Reason: pain) Qty: 20 0RF acetaminophen 500 mg tablet 1,000 mg PO QID PRN (Reason: pain) Qty: 30 0RF prednisone 20 mg tablet 60 mg PO DAILY 7 Days Qty: 21 0RF Interventions: ED Discharge Assessment Last Done: 03/11/22 19:03 Discharge Date/Time: 03/11/22 19:03
[2022-03-11 18:00] VITALS: BP 163/65; PULSE 83; RESP 18; O2SAT 99
[2022-03-11] MEDS: Butalb/Acetamin/Caff 50/325/40 TABLET 1 TAB PO (18:26)
[2022-03-11] MEDS: Azithromycin 500 MG TABLET PO (18:27)
[2022-03-11 18:28] LABS: Appearance Urine CLEAR; Color Urine YELLOW; Glucose Urine UA NEG (NEG); Leukocyte Esterase Urine NEG (NEG); Nitrite Urine NEG (NEG); Urine Blood NEG (NEG); Urine Ketones 5 MG/DL (NEG); Urine Protein TRACE MG/DL (NEG-TRACE)
== END 2022-03-11 19:03 | disposition home or self-care (01) ==
PROVIDERS: Emergency Provider Internal Medicine; PCP Internal Medicine
DX: J32.8 Other chronic sinusitis (principal); Z20.822 Contact with and (suspected) exposure to COVID-19; I10 Essential (primary) hypertension
CPT/HCPCS: 80053; 81003; 85025; 87502; 87635; 99283; 99284

== ENCOUNTER 2022-10-04 14:56 | Inpatient (IN) | payer OTHER, SELFPAY ==
[2022-10-04] VITALS (8 sets, daily range): BP systolic 122–139; BP diastolic 52–76; PULSE 62–100; RESP 16–24; TEMP 36.6–36.8; O2SAT 92–97; BMI 26.9
--- NOTE | ~2022-10-04 | XR_ITS ---
EXAMINATION: XR CHEST CLINICAL INFORMATION: Cough COMPARISON: Chest x-ray 07/31/2020 TECHNIQUE: Frontal view of the chest was obtained. FINDINGS: The lungs are clear. No airspace consolidation, pleural effusion, or pneumothorax. The cardiomediastinal silhouette is within normal limits. No acute osseous injury. Surgical clips project in the left upper quadrant. Calcific tendinopathy of left rotator cuff noted incidentally. XR/XR chest 1V IMPRESSION: No acute pulmonary disease.
--- NOTE | ~2022-10-04 | XR_ITS ---
EXAMINATION: XR CHEST CLINICAL INFORMATION: Continued shortness of breath COMPARISON: October 04, 2022 and July 31, 2020 TECHNIQUE: AP portable view of the chest was obtained. FINDINGS: There is some density about the left lung base likely related to atelectasis. No confluent pneumonitis is identified. Density related to anterior aspect of a rib is seen adjacent to the left heart border. Heart normal size. No evidence of pulmonary edema. No pneumothorax or significant pleural effusion. XR/XR chest 1V IMPRESSION: No significant acute parenchymal disease. Left base atelectasis.
--- NOTE | 2022-10-04 15:05 | ECG_ITS ---
Test Reason : difficulty breathing Blood Pressure : / mmHG Vent. Rate : 068 BPM Atrial Rate : 068 BPM P-R Int : 116 ms QRS Dur : 096 ms QT Int : 402 ms P-R-T Axes : 002 -07 031 degrees QTc Int : 427 ms Normal sinus rhythm Moderate voltage criteria for LVH, may be normal variant ( R in aVL , Vidal product ) Borderline ECG When compared with ECG of 31-JUL-2020 15:46, No significant change was found Referred By: Generic ED Physician Electronically Signed By:SAMSON CLIFTON MD
[2022-10-04 15:35] LABS: Basophils Percent Auto 0.2 % (0-2); Hemoglobin 13.1 g/dl (12.0-16.0); Mean Corpuscular Volume 92.9 fL (80.0-98.0); SCAN SMEAR FLAG 1
--- NOTE | 2022-10-04 15:44 | ED.GENADULT ---
HPI - General Adult General Chief complaint: Dyspnea <ERNA Mejía - Last Filed: 10/04/22 15:45> Stated complaint: difficulty breathing <ERNA Mejía - Last Filed: 10/04/22 15:45> Time Seen by Provider: 10/04/22 15:49 <ERNA Mejía - Last Filed: 10/04/22 15:45> Source: patient <ERNA Mejía - Last Filed: 10/04/22 15:45> patient <ERNA Stewart - Last Filed: 10/04/22 19:30> Mode of arrival: ambulatory <ERNA Mejía - Last Filed: 10/04/22 15:45> ambulatory <ERNA Stewart - Last Filed: 10/04/22 19:30> Limitations: no limitations <ERNA Mejía - Last Filed: 10/04/22 15:45> no limitations <ERNA Stewart - Last Filed: 10/04/22 19:30> History of Present Illness HPI narrative: 67 yo female with history of asthma, migraines, HTN, hypothyroidism, GERD who presents to the ER with worsening SOB, wheezing, and cough associated with fever, headaches and bodyaches since 09/29. She states she vomited a few times yesterday and started with diarrhea today. She states she is more and more short of breath and can't sleep because her breathing is so short. She lives home alone and denies sick contacts although was at a family gathering on [place]. She states her chest is sore from coughing. <ERAN Stewart - Last Filed: 10/04/22 19:30> MD complaint: SOB, cough <ERNA Stewart - Last Filed: 10/04/22 19:30> Onset (ago): day(s) (5) <ERNA Stewart - Last Filed: 10/04/22 19:30> Location: head and chest <ERNA Stewart - Last Filed: 10/04/22 19:30> Radiation: non-radiation <ERNA Stewart Last Filed: 10/04/22 19:30> Severity: severe <ERNA Stewart - Last Filed: 10/04/22 19:30> Quality: aching <ERNA Stewart - Last Filed: 10/04/22 19:30> Pain Consistency: intermittent <ERNA Stewart - Last Filed: 10/04/22 19:30> Relieving factors: movement <ERNA Stewart - Last Filed: 10/04/22 19:30> Exacerbating factors: rest <ERNA Stewart - Last Filed: 10/04/22 19:30> Associated symptoms: chest pain, cough, fever/chills, headaches, loss of appetite, malaise, nausea/vomiting and shortness of breath <ERNA Stewart - Last Filed: 10/04/22 19:30> Treatments prior to arrival: none <ERNA Stewart - Last Filed: 10/04/22 19:30> Related Data Home medications: Home Medications Medication Instructions Recorded Confirmed amlodipine 5 mg tablet 1 tab PO DAILY 10/04/22 10/04/22 levothyroxine 88 mcg tablet 1 tab PO DAILY 10/04/22 10/04/22 lisinopril 40 mg tablet 1 tab PO DAILY 10/04/22 10/04/22 metoprolol tartrate 50 mg tablet 1 tab PO BID 10/04/22 10/04/22 omeprazole 40 mg capsule,delayed 1 cap PO BID 10/04/22 10/04/22 release <ERNA Mejía - Last Filed: 10/04/22 15:45> Allergies/adverse reactions: Allergies Allergy/AdvReac Type Severity Reaction Status Date / Time honey [HONEY] Allergy Severe RASH Verified 10/04/22 14:59 morphine [Morphine] Allergy Severe ITCHING, Verified 10/04/22 14:59 INCREASE ANXIETY, HALLUCINATION oxycodone [OXYCODONE] Allergy Intermediate ITCHING, Verified 10/04/22 14:59 INCREASE ANXIETY. amoxicillin [Amoxicillin] Allergy Mild SWELLING Verified 10/04/22 14:59 milk [Milk] AdvReac Mild DIARRHEA, Verified 10/04/22 14:59 ABDOMINAL PAIN (REGULAR MILK ONLY) <ERNA Mejía - Last Filed: 10/04/22 15:45> Review of Systems Review of Systems: Constitutional: No Fever, + Chills ENT/Mouth: No sore throat, No Rhinorrhea, No Swallowing Difficulty Eyes: No Eye Pain, No Swelling, No Redness Cardiovascular: No Chest Pain, + SOB, + Orthopnea, No Edema Respiratory: + Cough, + Sputum, + Wheezing, + dyspnea Gastrointestinal: + Nausea, No Vomiting, + Diarrhea, No abdominal Pain Genitourinary: No Dysuria, No Urinary Frequency, No Hematuria Musculoskeletal: No joint pain, + Myalgias Skin: No Skin Lesions, No rash Neuro: No Weakness, No Numbness, No Dizziness, + Headache Psych: + Anxiety/Panic, No Depression Heme/Lymph: No Bruising, No Lymphadenopathy Endocrine: No Polyuria, No Polydipsia <ERNA Stewart - Last Filed: 10/04/22 19:30> [facility] Past Medical History Medical History: Medical History Adult hypothyroidism Asthma Colitis Hypertension <ERNA Mejía - Last Filed: 10/04/22 15:45> Surgical History: Surgical History H/O section H/O: hysterectomy History of appendectomy History of cholecystectomy <ERNA Mejía - Last Filed: 10/04/22 15:45> Social History Social History: Social History Smoked in Last 30 Days: No Use of substances other than those prescribed or required for medical reasons: No Advance Directives: No Advance Directives Information Provided: Yes <ERNA Mejía - Last Filed: 10/04/22 15:45> Physical Exam ED Vital Signs: Vital Signs - 24 hr 10/04/22 14:59 10/04/22 16:06 10/04/22 16:27 Temperature 97.9 F 98.2 F Pulse Rate 73 66 62 Respiratory Rate 16 24 H 16 Blood Pressure 139/67 137/76 Pulse Oximetry 92 95 Oxygen Delivery Method Room Air Room Air 10/04/22 18:14 10/04/22 18:25 Temperature 97.8 F Pulse Rate 94 95 Respiratory Rate 19 18 Blood Pressure 124/72 Pulse Oximetry 92 Oxygen Delivery Method Room Air BMI result Body Mass Index 26.9 <ERNA Mejía - Last Filed: 10/04/22 15:45> Vital Signs - 24 hr 10/04/22 14:59 10/04/22 16:06 10/04/22 16:27 Temperature 97.9 F 98.2 F Pulse Rate 73 66 62 Respiratory Rate 16 24 H 16 Blood Pressure 139/67 137/76 Pulse Oximetry 92 95 Oxygen Delivery Method Room Air Room Air 10/04/22 18:14 10/04/22 18:25 Temperature 97.8 F Pulse Rate 94 95 Respiratory Rate 19 18 Blood Pressure 124/72 Pulse Oximetry 92 Oxygen Delivery Method Room Air BMI result Body Mass Index 26.9 <ERNA Stewart - Last Filed: 10/04/22 19:30> Appearance: Alert. Oriented X3. Mild acute distress, audible wheezing, wet cough and rhonchi heard from the door Eyes: Pupils equal, round and reactive to light. ENT: Pharynx normal. Neck: Normal inspection. Neck supple. CVS: Normal heart rate and rhythm. Pulses normal. Respiratory: Mild respiratory distress. Breath sounds with diffuse rhonchi and expiratory wheezes throughout, speaking in 4-5 word sentences. Abdomen: Soft and nontender. +BS x4 Skin: Skin warm and dry. Normal skin color. Normal skin turgor. No rashes. Extremities: No lower extremity edema. No calf tenderness Neuro: Oriented X 3. No motor deficit. No sensory deficit. Globally weak, strength is equal and symmetrical throughout <ERNA Stewart - Last Filed: 10/04/22 19:30> Course Course Course Narrative: RME completed by Micaela Mai PA-C. Patient is a 67 year old female presenting to the ED with difficulty breathing. Labs and CXR ordered. Charge nurse alerted that patient needs room. <ERNA Mejía - Last Filed: 10/04/22 15:45> Reevaluation(s) Reevaluation #1: 67 yo female with asthma presenting with worsening SOB, cough and wheezing since 09/29. RR mid 90s with audible wheezing and rhonchi on arrival. IV steroids and neb ordered. CXR, labs and workup pending. Dispo pending results and improvement. <ERNA Stewart - Last Filed: 10/04/22 19:30> Time: 16:15 <ERNA Stewart - Last Filed: 10/04/22 19:30> Reevaluation #2: Patient continues to be dyspneic and audibly wheezy and rhonchorous. Will repeat neb and plan for admission. IV mag also ordered. <ERNA Stewart - Last Filed: 10/04/22 19:30> Time: 18:10 <ERNA Stewart - Last Filed: 10/04/22 19:30> Reevaluation #3: Hospitalist TT for admit. She is now on 2L NC for sats in the low 90s on RA per nursing. PO tylenol and toradol ordered for c/o diffuse body headaches, headache and back pain. <ERNA Stewart - Last Filed: 10/04/22 19:30> Time: 19:28 <ERNA Stewart - Last Filed: 10/04/22 19:30> Medications Administered Generic Name Dose Route Start Last Admin Trade Name Freq PRN Reason Stop Dose Admin Magnesium Sulfate 2 gm in 50 mls @ 25 mls/hr 10/04/22 18:08 10/04/22 18:32 Magnesium Sulfate/H2o IV 10/04/22 20:07 Infused ONCE ONE Infusion Discontinued Medications Generic Name Dose Route Start Last Admin Trade Name Freq PRN Reason Stop Dose Admin Albuterol Sulfate 7.5 mg/ 10 mg 10/04/22 16:13 10/04/22 16:24 Albuterol Sulfate 2.5 mg INHALE 10/04/22 16:14 10 mg ONCE ONE Administration Albuterol Sulfate 7.5 mg/ 10 mg 10/04/22 18:08 10/04/22 18:19 Albuterol Sulfate 2.5 mg INHALE 10/04/22 18:09 10 mg ONCE ONE Administration Guaifenesin 1,200 mg 10/04/22 16:15 10/04/22 16:26 Guaifenesin La 600 Mg Tab.Er.12h PO 10/04/22 16:16 1,200 mg ONCE ONE Administration Methylprednisolone Sodium Succinate 125 mg 10/04/22 16:13 10/04/22 16:26 Methylprednisolone Sod Succ 125 Mg/2 Ml Vial IVPUSH 10/04/22 16:14 125 mg ONCE ONE Administration <ERNA Mejía - Last Filed: 10/04/22 15:45> Medications Administered Generic Name Dose Route Start Last Admin Trade Name Freq PRN Reason Stop Dose Admin Magnesium Sulfate 2 gm in 50 mls @ 25 mls/hr 10/04/22 18:08 10/04/22 18:32 Magnesium Sulfate/H2o IV 10/04/22 20:07 Infused ONCE ONE Infusion Discontinued Medications Generic Name Dose Route Start Last Admin Trade Name Freq PRN Reason Stop Dose Admin Albuterol Sulfate 7.5 mg/ 10 mg 10/04/22 16:13 10/04/22 16:24 Albuterol Sulfate 2.5 mg INHALE 10/04/22 16:14 10 mg ONCE ONE Administration Albuterol Sulfate 7.5 mg/ 10 mg 10/04/22 18:08 10/04/22 18:19 Albuterol Sulfate 2.5 mg INHALE 10/04/22 18:09 10 mg ONCE ONE Administration Guaifenesin 1,200 mg 10/04/22 16:15 10/04/22 16:26 Guaifenesin La 600 Mg Tab.Er.12h PO 10/04/22 16:16 1,200 mg ONCE ONE Administration Methylprednisolone Sodium Succinate 125 mg 10/04/22 16:13 10/04/22 16:26 Methylprednisolone Sod Succ 125 Mg/2 Ml Vial IVPUSH 10/04/22 16:14 125 mg ONCE ONE Administration <ERNA Stewart - Last Filed: 10/04/22 19:30> Medical Decision Making Admission/Observation Consideration of admission/observation: Escalation of care including admission/observation considered <ERNA Stewart - Last Filed: 10/04/22 19:30> admit for ongoing pulm toilet <ERNA Stewart - Last Filed: 10/04/22 19:30> Consult Healthcare Provider Management of the patient was discussed with: Hospitalist <ERAN Stewart - Last Filed: 10/04/22 19:30> Lab Data MDM Lab Attestation statement: I reviewed the patient's lab results. <ERNA Stewart - Last Filed: 10/04/22 19:30> Result Diagrams: : 10/04/22 15:29 10/04/22 15:29 <ERNA Mejía - Last Filed: 10/04/22 15:45> Labs: Lab Results 10/04/22 10/04/22 10/04/22 Range/Units 15:29 15:29 15:29 WBC 8.7 (4.8-10.8) X10*3/uL RBC 4.39 (4.20-5.50) X10*6/uL Hgb 13.1 (12.0-16.0) g/dl Hct 40.8 (37.0-47.0) % MCV 92.9 (80.0-98.0) fL MCH 29.8 (27.0-33.0) pg MCHC 32.1 (31.0-35.0) g/dl RDW 12.7 (11.0-16.0) % Plt Count 232 (160-400) X10*3/uL MPV 11.3 (9.4-12.3) fL Immature Gran % (Auto) 0.2 (0.0-0.4) % Neut % (Auto) 75.4 H (45-73) % Lymph % (Auto) 19.5 L (20-40) % [place] % (Auto) 4.7 (2-11) % Eos % (Auto) 0.0 (0-4) % Baso % (Auto) 0.2 (0-2) % Lymph # (Auto) 1.7 (1.2-4.9) X10*3/uL [place] # (Auto) 0.4 (0.1-1.2) X10*3/uL Eos # (Auto) 0.0 (0.0-0.4) X10*3/uL Baso # (Auto) 0.0 (0.0-0.2) X10*3/uL Abs Immat Gran (auto) 0.02 (0.00-0.03) X10*3/uL Absolute Neuts (auto) 6.5 (2.0-8.3) x10*3/uL Absolute Nucleated RBC 0.000 (0.0-0.012) X10*3/uL Nucleated RBC % (auto) 0.0 (0.0-0.2) /100WBC Smear Tech's Comments VERIFIED VBG pH (7.32-7.43) VBG pCO2 mmHg VBG pO2 mmHg VBG HCO3 (22-26) mmol/L VBG O2 Saturation % VBG Base Excess mmol/L Sodium 139 (135-145) mmol/L Potassium 3.4 (3.3-5.1) mmol/L Chloride 104 (96-108) mmol/L Carbon Dioxide 26 (22-29) mmol/L Anion Gap 12 (12-20) BUN 15 (9-16) mg/dL Creatinine 0.86 (0.5-1.4) mg/dL Estim Creat Clear Calc 51.0 Estimated GFR > 60 Random Glucose 147 H (60-115) mg/dL Calcium 9.2 (8.4-10.2) mg/dL Procalcitonin ng/mL Influenza Type A (PCR) NEGATIVE (Negative) Influenza Type B (PCR) NEGATIVE (Negative) RSV RNA Qual (PCR) NEGATIVE (Negative) SARS-CoV-2 RNA (RT-PCR) NEGATIVE (Negative) 10/04/22 10/04/22 Range/Units 15:29 18:39 WBC (4.8-10.8) X10*3/uL RBC (4.20-5.50) X10*6/uL Hgb (12.0-16.0) g/dl Hct (37.0-47.0) % MCV (80.0-98.0) fL MCH (27.0-33.0) pg MCHC (31.0-35.0) g/dl RDW (11.0-16.0) % Plt Count (160-400) X10*3/uL MPV (9.4-12.3) fL Immature Gran % (Auto) (0.0-0.4) % Neut % (Auto) (45-73) % Lymph % (Auto) (20-40) % [place] % (Auto) (2-11) % Eos % (Auto) (0-4) % Baso % (Auto) (0-2) % Lymph # (Auto) (1.2-4.9) X10*3/uL [place] # (Auto) (0.1-1.2) X10*3/uL Eos # (Auto) (0.0-0.4) X10*3/uL Baso # (Auto) (0.0-0.2) X10*3/uL Abs Immat Gran (auto) (0.00-0.03) X10*3/uL Absolute Neuts (auto) (2.0-8.3) x10*3/uL Absolute Nucleated RBC (0.0-0.012) X10*3/uL Nucleated RBC % (auto) (0.0-0.2) /100WBC Smear Tech's Comments VBG pH 7.41 (7.32-7.43) VBG pCO2 33 mmHg VBG pO2 90 mmHg VBG HCO3 21 L (22-26) mmol/L VBG O2 Saturation 98.0 % VBG Base Excess -2.6 mmol/L Sodium (135-145) mmol/L Potassium (3.3-5.1) mmol/L Chloride (96-108) mmol/L Carbon Dioxide (22-29) mmol/L Anion Gap (12-20) BUN (9-16) mg/dL Creatinine (0.5-1.4) mg/dL Estim Creat Clear Calc Estimated GFR Random Glucose (60-115) mg/dL Calcium (8.4-10.2) mg/dL Procalcitonin 0.06 ng/mL Influenza Type A (PCR) (Negative) Influenza Type B (PCR) (Negative) RSV RNA Qual (PCR) (Negative) SARS-CoV-2 RNA (RT-PCR) (Negative) <ERNA Mejía - Last Filed: 10/04/22 15:45> Lab Results 10/04/22 10/04/22 10/04/22 Range/Units 15:29 15:29 15:29 WBC 8.7 (4.8-10.8) X10*3/uL RBC 4.39 (4.20-5.50) X10*6/uL Hgb 13.1 (12.0-16.0) g/dl Hct 40.8 (37.0-47.0) % MCV 92.9 (80.0-98.0) fL MCH 29.8 (27.0-33.0) pg MCHC 32.1 (31.0-35.0) g/dl RDW 12.7 (11.0-16.0) % Plt Count 232 (160-400) X10*3/uL MPV 11.3 (9.4-12.3) fL Immature Gran % (Auto) 0.2 (0.0-0.4) % Neut % (Auto) 75.4 H (45-73) % Lymph % (Auto) 19.5 L (20-40) % [place] % (Auto) 4.7 (2-11) % Eos % (Auto) 0.0 (0-4) % Baso % (Auto) 0.2 (0-2) % Lymph # (Auto) 1.7 (1.2-4.9) X10*3/uL [place] # (Auto) 0.4 (0.1-1.2) X10*3/uL Eos # (Auto) 0.0 (0.0-0.4) X10*3/uL Baso # (Auto) 0.0 (0.0-0.2) X10*3/uL Abs Immat Gran (auto) 0.02 (0.00-0.03) X10*3/uL Absolute Neuts (auto) 6.5 (2.0-8.3) x10*3/uL Absolute Nucleated RBC 0.000 (0.0-0.012) X10*3/uL Nucleated RBC % (auto) 0.0 (0.0-0.2) /100WBC Smear Tech's Comments VERIFIED VBG pH (7.32-7.43) VBG pCO2 mmHg VBG pO2 mmHg VBG HCO3 (22-26) mmol/L VBG O2 Saturation % VBG Base Excess mmol/L Sodium 139 (135-145) mmol/L Potassium 3.4 (3.3-5.1) mmol/L Chloride 104 (96-108) mmol/L Carbon Dioxide 26 (22-29) mmol/L Anion Gap 12 (12-20) BUN 15 (9-16) mg/dL Creatinine 0.86 (0.5-1.4) mg/dL Estim Creat Clear Calc 51.0 Estimated GFR > 60 Random Glucose 147 H (60-115) mg/dL Calcium 9.2 (8.4-10.2) mg/dL Procalcitonin ng/mL Influenza Type A (PCR) NEGATIVE (Negative) Influenza Type B (PCR) NEGATIVE (Negative) RSV RNA Qual (PCR) NEGATIVE (Negative) SARS-CoV-2 RNA (RT-PCR) NEGATIVE (Negative) 10/04/22 10/04/22 Range/Units 15:29 18:39 WBC (4.8-10.8) X10*3/uL RBC (4.20-5.50) X10*6/uL Hgb (12.0-16.0) g/dl Hct (37.0-47.0) % MCV (80.0-98.0) fL MCH (27.0-33.0) pg MCHC (31.0-35.0) g/dl RDW (11.0-16.0) % Plt Count (160-400) X10*3/uL MPV (9.4-12.3) fL Immature Gran % (Auto) (0.0-0.4) % Neut % (Auto) (45-73) % Lymph % (Auto) (20-40) % [place] % (Auto) (2-11) % Eos % (Auto) (0-4) % Baso % (Auto) (0-2) % Lymph # (Auto) (1.2-4.9) X10*3/uL [place] # (Auto) (0.1-1.2) X10*3/uL Eos # (Auto) (0.0-0.4) X10*3/uL Baso # (Auto) (0.0-0.2) X10*3/uL Abs Immat Gran (auto) (0.00-0.03) X10*3/uL Absolute Neuts (auto) (2.0-8.3) x10*3/uL Absolute Nucleated RBC (0.0-0.012) X10*3/uL Nucleated RBC % (auto) (0.0-0.2) /100WBC Smear Tech's Comments VBG pH 7.41 (7.32-7.43) VBG pCO2 33 mmHg VBG pO2 90 mmHg VBG HCO3 21 L (22-26) mmol/L VBG O2 Saturation 98.0 % VBG Base Excess -2.6 mmol/L Sodium (135-145) mmol/L Potassium (3.3-5.1) mmol/L Chloride (96-108) mmol/L Carbon Dioxide (22-29) mmol/L Anion Gap (12-20) BUN (9-16) mg/dL Creatinine (0.5-1.4) mg/dL Estim Creat Clear Calc Estimated GFR Random Glucose (60-115) mg/dL Calcium (8.4-10.2) mg/dL Procalcitonin 0.06 ng/mL Influenza Type A (PCR) (Negative) Influenza Type B (PCR) (Negative) RSV RNA Qual (PCR) (Negative) SARS-CoV-2 RNA (RT-PCR) (Negative) <ERNA Stewart - Last Filed: 10/04/22 19:30> ABG Data Attestation ABG: I personally reviewed and interpreted this ABG as follows: <ERNA Stewart Last Filed: 10/04/22 19:30> Interpretation: vbg without evidence of resp acidosis/co2 retention or tiring out <ERNA Stewart - Last Filed: 10/04/22 19:30> Independent Interpretation I performed an independent interpretation of an: EKG <ERNA Stewart - Last Filed: 10/04/22 19:30> Interpretation: Normal sinus rhythm, ventricular rate 68 beats per minute, normal WI interval, normal QTC, moderate voltage criteria for LVH. No ST segment elevations or depressions. <ERNA Stewart Last Filed: 10/04/22 19:30> Radiology Impression Discussion of test interpretation with radiology: I have reviewed the radiologist's reading. <ERNA Stewart - Last Filed: 10/04/22 19:30> Radiologist Impression: Chest x-ray reviewed personally, no evidence of pneumonia. <ERNA Stewart Last Filed: 10/04/22 19:30> Prescription Management I considered prescription management with: Antibiotic <ERNA Stewart Last Filed: 10/04/22 19:30> Holding off given no infiltrate on x-ray, procal low, no leukocytosis. <ERNA Stewart Last Filed: 10/04/22 19:30> Critical Care Time Critical Care Time Critical Care Time: Yes <ERNA Stewart Last Filed: 10/04/22 19:30> Total Critical Care Time: 44 <ERNA Stewart - Last Filed: 10/04/22 19:30> Attestation: I have personally provided critical care time exclusive of time spent on separately billable procedures. Time includes review of lab data, radiology results, discussion with consultants, and monitoring for potential decompensation. Intervention performed as documented. <ERNA Stewart - Last Filed: 10/04/22 19:30> Discharge Plan Discharge Clinical Impression: Asthma with exacerbation <ERNA Mejía - Last Filed: 10/04/22 15:45> Patient Disposition: Admitted As Inpatient <ERNA Mejía - Last Filed: 10/04/22 15:45>
[2022-10-04 15:47] LABS: Anion Gap 12 (12-20); Blood Urea Nitrogen 15 mg/dL (9-16); Calcium 9.2 mg/dL (8.4-10.2); Carbon Dioxide 26 mmol/L (22-29); Chloride 104 mmol/L (96-108); Estimated Glomerular Filt Rate > 60; Glucose Random 147 mg/dL (60-115); Potassium 3.4 mmol/L (3.3-5.1); Sodium 139 mmol/L (135-145)
[2022-10-04 15:55] LABS: Hematocrit 40.8 % (37.0-47.0); Imm Gran Abs Auto 0.02 X10*3/uL (0.00-0.03); Imm Gran Pct Auto 0.2 % (0.0-0.4); Lymphocytes Absolute Auto 1.7 X10*3/uL (1.2-4.9); Lymphocytes Percent Auto 19.5 % (20-40); MANUAL DIFF FLAG SCAN; Mean Corpuscular HGB Conc 32.1 g/dl (31.0-35.0); Mean Corpuscular Hemoglobin 29.8 pg (27.0-33.0); Mean Platelet Volume 11.3 fL (9.4-12.3); Monocytes Absolute Auto 0.4 X10*3/uL (0.1-1.2); Monocytes Percent Auto 4.7 % (2-11); Neutrophils Absolute Auto 6.5 x10*3/uL (2.0-8.3); Neutrophils Percent Auto 75.4 % (45-73); Platelet Count 232 X10*3/uL (160-400); Red Blood Count 4.39 X10*6/uL (4.20-5.50); Red Cell Distribution Width 12.7 % (11.0-16.0); White Blood Count 8.7 X10*3/uL (4.8-10.8)
[2022-10-04 16:10] LABS: SLIDE REVIEW VERIFIED
[2022-10-04 16:12] LABS: Influenza A PCR NEGATIVE (Negative); Influenza B PCR NEGATIVE (Negative); Resp Syncy Virus RNA Qual PCR NEGATIVE (Negative); SARS COV2 PCR INHOUSE NEGATIVE (Negative)
[2022-10-04] MEDS: Albuterol Sulfate 7.5 MG, Albuterol Sulfate (0.083%) 2.5 MG 10 MG INHALE ×2 (16:24→18:19)
[2022-10-04] MEDS: methylPREDNISolone Sod Succ 125 MG/2 ML VIAL IVPUSH (16:26)
[2022-10-04] MEDS: guaiFENesin LA 600 MG TAB.ER.12H 1200 MG PO (16:26)
[2022-10-04 17:03] LABS: Procalcitonin 0.06 ng/mL
[2022-10-04] MEDS: Magnesium Sulfate/H2O 2 GM/50 ML PIGGYBACK IV (18:18)
[2022-10-04 18:45] LABS: Venous Blood Gas Refer to POC result
[2022-10-04 18:45] LABS: VBG Base Excess -2.6 mmol/L; VBG HCO3 21 mmol/L (22-26); VBG pCO2 33 mmHg; VBG pH 7.41 (7.32-7.43); VBG pO2 90 mmHg
[2022-10-04] MEDS: Ketorolac Tromethamine 30 MG/ML VIAL IVPUSH (19:42)
[2022-10-04] MEDS: Acetaminophen 325 MG TABLET 975 MG PO (19:42)
[2022-10-04] MEDS: Albuterol/Iprat 2.5/0.5MG 3 ML AMPUL.NEB INHALE ×2 (20:15→22:59)
--- NOTE | 2022-10-04 20:58 | PM.IMHP ---
History of Present Illness Date of Service: 10/04/22 Chief Complaint: asthma exacerbtion Year old female with past medical history of hypothyroidism, asthma, hypertension presents to the hospital with complaints of shortness of breath, cough, wheezing for past 1 week. Patient reports feeling febrile, has chills, shaking. Has increased phlegm, has had nausea, episodes of vomiting, dizziness. Has generalized body aches. Had diarrhea this morning x3, currently resolved. Denies any chest pain, no urinary symptoms and no lower extremity edema. No orthopnea or PND On arrival to the ED patient hemodynamically stable slightly elevated respiratory rate of 24 Labs are significant for WBC count of 8.7, labs otherwise unremarkable Viral serology negative, chest x-ray negative patient received multiple rounds of breathing treatment, Mag sulfate, and Solu-Medrol with persistent symptoms, therefore patient will be admitted Review of Systems Review of Systems: Yes all other systems are reviewed and are negative [facility] Medical History Adult hypothyroidism Asthma Colitis Hypertension Family History Other No family history of coronary artery disease Surgical History H/O section H/O: hysterectomy History of appendectomy History of cholecystectomy Social History Smoked in Last 30 Days: No Use of substances other than those prescribed or required for medical reasons: No Advance Directives: No Advance Directives Information Provided: Yes Meds Allergies Allergy/AdvReac Type Severity Reaction Status Date / Time honey [HONEY] Allergy Severe RASH Verified 10/04/22 14:59 morphine [Morphine] Allergy Severe ITCHING, Verified 10/04/22 14:59 INCREASE ANXIETY, HALLUCINATION oxycodone [OXYCODONE] Allergy Intermediate ITCHING, Verified 10/04/22 14:59 INCREASE ANXIETY. amoxicillin [Amoxicillin] Allergy Mild SWELLING Verified 10/04/22 14:59 milk [Milk] AdvReac Mild DIARRHEA, Verified 10/04/22 14:59 ABDOMINAL PAIN (REGULAR MILK ONLY) Active Medications: Current Medications Albuterol/Ipratropium (Albuterol/Iprat 2.5/0.5mg 3 Ml Ampul.Neb) 3 ml INHALE Q4H PRN PRN Reason: Shortness of Breath/Wheezing Albuterol/Ipratropium (Albuterol/Iprat 2.5/0.5mg 3 Ml Ampul.Neb) 3 ml INHALE RQ4H WHILE AWAKE [facility] Last Admin: 10/04/22 20:15 Dose: 3 ml Docusate Sodium (Docusate Sodium 100 Mg Capsule) 100 mg PO DAILY PRN PRN Reason: Constipation Methylprednisolone Sodium Succinate (Methylprednisolone Sod Succ 40 Mg/Ml Vial) 40 mg IVPUSH Q12H [facility] Ondansetron HCl (Ondansetron Hcl 4 Mg/2 Ml Vial) 4 mg IVPUSH Q8H PRN PRN Reason: Nausea and Vomiting Pharmacy Consult (Consult Rx Perform Med Rec) 1 each MISCELLANE ONCE PRN PRN Reason: Consult order Sodium Chloride (0.9 % Sodium Chloride Flush 3 Ml Syringe) 3 ml IVFLUSH QSHIFT [facility] Home Medications Medication Instructions Recorded Confirmed Last Taken Type amlodipine 5 mg tablet 1 tab PO DAILY 10/04/22 10/04/22 Unknown History levothyroxine 88 mcg tablet 1 tab PO DAILY 10/04/22 10/04/22 Unknown History lisinopril 40 mg tablet 1 tab PO DAILY 10/04/22 10/04/22 Unknown History metoprolol tartrate 50 mg tablet 1 tab PO BID 10/04/22 10/04/22 Unknown History omeprazole 40 mg capsule,delayed 1 cap PO BID 10/04/22 10/04/22 Unknown History release Physical Exam Vital Signs and Narrative: Vital Signs: Last Vital Signs Temp 97.8 F 10/04/22 20:04 Pulse 100 10/04/22 20:15 Resp 18 10/04/22 20:15 BP 128/55 L 10/04/22 20:04 Pulse Ox 94 10/04/22 20:04 O2 Del Method 10/04/22 20:04 O2 Flow Rate 3 10/04/22 20:04 BMI result Body Mass Index 26.9 Const: General: cooperative and no acute distress Orientation/consciousness: patient oriented x3 Eyes: General: appearance normal, both eyes and all related structures Resp: Other: wheezing Effort & Inspection: normal respiratory effort Cardio: Rate: regular rate Rhythm: regular rhythm GI: Palpation (GI): Soft to palpation Auscultation: normal bowel sounds Skin: General skin exam: no rashes or lesions noted Neuro: General: patient oriented x3 Cognition (Neuro): normal cognition Extrem: General: Yes normal to inspection and Yes no pedal edema Results Labs CBC and Chem 7: 10/04/22 15:29 10/04/22 15:29 Labs: Laboratory Results - last 24 hr 10/04/22 10/04/22 10/04/22 15:29 15:29 15:29 MCV 92.9 MCH 29.8 MCHC 32.1 RDW 12.7 Plt Count 232 MPV 11.3 Immature Gran % (Auto) 0.2 Neut % (Auto) 75.4 H Lymph % (Auto) 19.5 L Mcpherson % (Auto) 4.7 Eos % (Auto) 0.0 Baso % (Auto) 0.2 Lymph # (Auto) 1.7 Mcpherson # (Auto) 0.4 Eos # (Auto) 0.0 Baso # (Auto) 0.0 Abs Immat Gran (auto) 0.02 Absolute Neuts (auto) 6.5 Absolute Nucleated RBC 0.000 Nucleated RBC % (auto) 0.0 Smear Tech's Comments VERIFIED VBG pH VBG pCO2 VBG pO2 VBG HCO3 VBG O2 Saturation VBG Base Excess Anion Gap 12 Estim Creat Clear Calc 51.0 Estimated GFR > 60 Random Glucose 147 H Calcium 9.2 Procalcitonin Influenza Type A (PCR) NEGATIVE Influenza Type B (PCR) NEGATIVE RSV RNA Qual (PCR) NEGATIVE SARS-CoV-2 RNA (RT-PCR) NEGATIVE 10/04/22 10/04/22 15:29 18:39 MCV MCH MCHC RDW Plt Count MPV Immature Gran % (Auto) Neut % (Auto) Lymph % (Auto) Mcpherson % (Auto) Eos % (Auto) Baso % (Auto) Lymph # (Auto) Mcpherson # (Auto) Eos # (Auto) Baso # (Auto) Abs Immat Gran (auto) Absolute Neuts (auto) Absolute Nucleated RBC Nucleated RBC % (auto) Smear Tech's Comments VBG pH 7.41 VBG pCO2 33 VBG pO2 90 VBG HCO3 21 L VBG O2 Saturation 98.0 VBG Base Excess -2.6 Anion Gap Estim Creat Clear Calc Estimated GFR Random Glucose Calcium Procalcitonin 0.06 Influenza Type A (PCR) Influenza Type B (PCR) RSV RNA Qual (PCR) SARS-CoV-2 RNA (RT-PCR) Imaging Radiologist's Impressions: Impressions Chest X-Ray 10/04/22 15:44 IMPRESSION: No acute pulmonary disease. Assessment and Plan (1) Asthma with exacerbation: Status: Acute Plan 67-year-old female with past medical history of asthma presents to the hospital with asthma exacerbation # acute asthma exacerbation - dyspnea, cough, wheezing - continues to have symptoms despite multiple rounds of DuoNebs, as well as IV Solu-Medrol - will obtain peak flow - continue IV Solu-Medrol, DuoNeb p.r.n. as well as scheduled monitor respiratory status # hypertension - stable - continue home antihypertensive # hypothyroidism - continue levothyroxine DVT prophylaxis: Early ambulation Time Spent With Patient Time: Total time managing care of this patient today ____ minutes. Quality Stroke Does the patient have a stroke diagnosis?: No VTE Prior VTE?: No VTE Risk Level:: Medical - low VTE Device Contraindication: Treatment Not Indicated VTE Drug Contraindication: Treatment Not Indicated
[2022-10-04] MEDS: 0.9 % Sodium Chloride Flush 3 ML SYRINGE IVFLUSH (22:55)
[2022-10-04] MEDS: HYDROmorphone HCl 0.5 MG/0.5 ML SYRINGE 0.25 MG IVPUSH (22:55)
[2022-10-05] VITALS (11 sets, daily range): BP systolic 116–172; BP diastolic 58–77; PULSE 54–92; RESP 15–19; TEMP 36.6–37.3; O2SAT 93–98
--- NOTE | 2022-10-05 03:21 | PC.NURSE ---
pt resting comfortably on stretcher at this time.
--- NOTE | 2022-10-05 05:02 | PC.NURSE ---
pt requesting tylenol for migrain ALTAMIRANO. pt also requested coffee and sandwich. this rn provided pt with coffee and sandwich. this rn reached out to hospitalist dr stewart regarding request for tylenol. awaiting order at this time
[2022-10-05] MEDS: Acetaminophen 325 MG TABLET 650 MG PO ×2 (05:47→17:08)
[2022-10-05] MEDS: methylPREDNISolone Sod Succ 40 MG/ML VIAL IVPUSH ×2 (05:48→17:26)
[2022-10-05 06:48] LABS: MANUAL DIFF FLAG NO
--- NOTE | 2022-10-05 07:16 | PHA.MEDREC ---
Pharmacy Consult ? Medication Reconciliation Pharmacy has completed the medication reconciliation.
[2022-10-05 07:26] LABS: Basophils Percent Auto 0.1 % (0-2); Hematocrit 37.1 % (37.0-47.0); Imm Gran Abs Auto 0.06 X10*3/uL (0.00-0.03); Imm Gran Pct Auto 0.4 % (0.0-0.4); Lymphocytes Absolute Auto 1.5 X10*3/uL (1.2-4.9); Lymphocytes Percent Auto 10.9 % (20-40); Mean Corpuscular HGB Conc 32.3 g/dl (31.0-35.0); Mean Corpuscular Hemoglobin 30.2 pg (27.0-33.0); Mean Corpuscular Volume 93.5 fL (80.0-98.0); Mean Platelet Volume 12.3 fL (9.4-12.3); Monocytes Absolute Auto 0.3 X10*3/uL (0.1-1.2); Monocytes Percent Auto 2.1 % (2-11); Neutrophils Absolute Auto 12.1 x10*3/uL (2.0-8.3); Neutrophils Percent Auto 86.5 % (45-73); Platelet Count 205 X10*3/uL (160-400); Red Blood Count 3.97 X10*6/uL (4.20-5.50); Red Cell Distribution Width 12.8 % (11.0-16.0); SCAN SMEAR FLAG 1
[2022-10-05 07:28] LABS: Anion Gap 21 (12-20); Blood Urea Nitrogen 24 mg/dL (9-16); Calcium 9.1 mg/dL (8.4-10.2); Carbon Dioxide 20 mmol/L (22-29); Chloride 99 mmol/L (96-108); Creatinine Clr Calc Pharmacy 33.4; Estimated Glomerular Filt Rate 40; Glucose Random 212 mg/dL (60-115); Potassium 3.7 mmol/L (3.3-5.1); Sodium 136 mmol/L (135-145)
[2022-10-05] MEDS: Albuterol/Iprat 2.5/0.5MG 3 ML AMPUL.NEB INHALE ×4 (08:02→19:35)
[2022-10-05] MEDS: 0.9 % Sodium Chloride Flush 3 ML SYRINGE IVFLUSH ×3 (08:06→20:52)
[2022-10-05 09:21] LABS: Estimated Average Glucose 108 mg/dL; Hemoglobin A1c % 5.4 %
[2022-10-05] MEDS: amLODIPine Besylate 5 MG TABLET PO (09:23)
[2022-10-05] MEDS: Metoprolol Tartrate 50 MG TABLET PO ×2 (09:23→20:52)
[2022-10-05] MEDS: Omeprazole 40 MG CAPSULE.DR PO ×2 (09:23→17:26)
[2022-10-05] MEDS: Levothyroxine Sodium 88 MCG TABLET PO (10:27)
--- NOTE | 2022-10-05 10:53 | MHC.CM.PN ---
PT REPORTS SHE LIVES ALONE AND IS INDEPENDENT WITH CARE PT DENIES USE OF DME OR SERVICES PT REPORTS SHE IS COVID [place] SHE SAYS SHE HAS A HCP AT HOME. COPY REQ PCP: JACKIE TRACY OBS NOTICE DELIVERED, COPY SENT TO [facility] CURRENT DC PLAN IS HOME WITH NO SERVICES PT TO ARRANGE TRANSPORT
--- NOTE | 2022-10-05 15:43 | HO.PM.IMPN ---
Subjective Subjective Date of Service: 10/06/22 Interval History: asthma exacerbtion Review of Systems still sob ,has cough Still talking with short sentences, shortness of breath with exertion. Physical Exam Vital Signs: Vital Signs: Last Vital Signs Temp 97.9 F 10/05/22 15:02 Pulse 68 10/05/22 15:20 Resp 18 10/05/22 15:20 BP 152/69 H 10/05/22 15:02 Pulse Ox 95 10/05/22 15:02 O2 Del Method 10/05/22 15:02 O2 Flow Rate 1 10/05/22 09:22 BMI result Body Mass Index 26.9 Appearance: Alert.? Oriented X3.? not in distress.? cvs: rrr, [id number] , no murmur res:diminshed breath sounds at bases , has b/l wheezin abd: no rebound or guarding ,nt, bs present. ext pulses present , no cyanosis. neuro: axo3 , nonfocal. Objective Data Active Medications Acetaminophen (Acetaminophen 325 Mg Tablet) 650 mg PO Q6H PRN PRN Reason: Pain, Moderate (Pain Scale 4-6 Last Admin: 10/05/22 05:47 Dose: 650 mg Documented By: ADRIENNE Albuterol/Ipratropium (Albuterol/Iprat 2.5/0.5mg 3 Ml Ampul.Neb) 3 ml INHALE Q4H PRN PRN Reason: Shortness of Breath/Wheezing Last Admin: 10/04/22 22:59 Dose: 3 ml Documented By: VINCENT Albuterol/Ipratropium (Albuterol/Iprat 2.5/0.5mg 3 Ml Ampul.Neb) 3 ml INHALE RQ4H WHILE AWAKE [facility] Last Admin: 10/05/22 15:20 Dose: 3 ml Documented By: LALITA Amlodipine Besylate (Amlodipine Besylate 5 Mg Tablet) 5 mg PO DAILY [facility]; Protocol Last Admin: 10/05/22 09:23 Dose: 5 mg Documented By: REYNALDOOPEGrabiel Docusate Sodium (Docusate Sodium 100 Mg Capsule) 100 mg PO DAILY PRN PRN Reason: Constipation Levothyroxine Sodium (Levothyroxine Sodium 88 Mcg Tablet) 88 mcg PO DAILY@0630 [facility] Last Admin: 01/01/23 10:27 Dose: 88 mcg Documented By: JOE Methylprednisolone Sodium Succinate (Methylprednisolone Sod Succ 40 Mg/Ml Vial) 40 mg IVPUSH Q12H [facility] Last Admin: 10/05/22 05:48 Dose: 40 mg Documented By: ADRIENNE Metoprolol Tartrate (Metoprolol Tartrate 50 Mg Tablet) 50 mg PO BID [facility]; Protocol Last Admin: 10/05/22 09:23 Dose: 50 mg Documented By: JOE Omeprazole (Omeprazole 40 Mg Capsule.Dr) 40 mg PO BID@0630,1600 [facility] Last Admin: 10/05/22 09:23 Dose: 40 mg Documented By: JOE Ondansetron HCl (Ondansetron Hcl 4 Mg/2 Ml Vial) 4 mg IVPUSH Q8H PRN PRN Reason: Nausea and Vomiting Pharmacy Consult (Consult Rx Perform Med Rec) 1 each MISCELLANE ONCE PRN PRN Reason: Consult order Sodium Chloride (0.9 % Sodium Chloride Flush 3 Ml Syringe) 3 ml IVFLUSH QSHIFT [facility] Last Admin: 10/05/22 08:06 Dose: 3 ml Documented By: JOE Labs CBC & Chem 7: 10/05/22 05:53 10/06/22 09:05 Labs: Laboratory Results - last 24 hr 10/04/22 10/04/22 10/04/22 15:29 15:29 15:29 MCV 92.9 MCH 29.8 MCHC 32.1 RDW 12.7 Plt Count 232 MPV 11.3 Immature Gran % (Auto) 0.2 Neut % (Auto) 75.4 H Lymph % (Auto) 19.5 L Rush % (Auto) 4.7 Eos % (Auto) 0.0 Baso % (Auto) 0.2 Lymph # (Auto) 1.7 Rush # (Auto) 0.4 Eos # (Auto) 0.0 Baso # (Auto) 0.0 Abs Immat Gran (auto) 0.02 Absolute Neuts (auto) 6.5 Absolute Nucleated RBC 0.000 Nucleated RBC % (auto) 0.0 Smear Tech's Comments VERIFIED VBG pH VBG pCO2 VBG pO2 VBG HCO3 VBG O2 Saturation VBG Base Excess Anion Gap 12 Estim Creat Clear Calc 51.0 Estimated GFR > 60 Random Glucose 147 H Estimat Average Glucose Hemoglobin A1c % Calcium 9.2 Procalcitonin Influenza Type A (PCR) NEGATIVE Influenza Type B (PCR) NEGATIVE RSV RNA Qual (PCR) NEGATIVE SARS-CoV-2 RNA (RT-PCR) NEGATIVE 10/04/22 10/04/22 10/05/22 15:29 18:39 05:53 MCV 93.5 MCH 30.2 MCHC 32.3 RDW 12.8 Plt Count 205 MPV 12.3 Immature Gran % (Auto) 0.4 Neut % (Auto) 86.5 H Lymph % (Auto) 10.9 L Rush % (Auto) 2.1 Eos % (Auto) 0.0 Baso % (Auto) 0.1 Lymph # (Auto) 1.5 Rush # (Auto) 0.3 Eos # (Auto) 0.0 Baso # (Auto) 0.0 Abs Immat Gran (auto) 0.06 H Absolute Neuts (auto) 12.1 H Absolute Nucleated RBC 0.000 Nucleated RBC % (auto) 0.0 Smear Tech's Comments VBG pH 7.41 VBG pCO2 33 VBG pO2 90 VBG HCO3 21 L VBG O2 Saturation 98.0 VBG Base Excess -2.6 Anion Gap Estim Creat Clear Calc Estimated GFR Random Glucose Estimat Average Glucose Hemoglobin A1c % Calcium Procalcitonin 0.06 Influenza Type A (PCR) Influenza Type B (PCR) RSV RNA Qual (PCR) SARS-CoV-2 RNA (RT-PCR) 10/05/22 10/05/22 05:53 05:53 MCV MCH MCHC RDW Plt Count MPV Immature Gran % (Auto) Neut % (Auto) Lymph % (Auto) Rush % (Auto) Eos % (Auto) Baso % (Auto) Lymph # (Auto) Rush # (Auto) Eos # (Auto) Baso # (Auto) Abs Immat Gran (auto) Absolute Neuts (auto) Absolute Nucleated RBC Nucleated RBC % (auto) Smear Tech's Comments VBG pH VBG pCO2 VBG pO2 VBG HCO3 VBG O2 Saturation VBG Base Excess Anion Gap 21 H Estim Creat Clear Calc 33.4 Estimated GFR 40 Random Glucose 212 H Estimat Average Glucose 108 Hemoglobin A1c % 5.4 Calcium 9.1 Procalcitonin Influenza Type A (PCR) Influenza Type B (PCR) RSV RNA Qual (PCR) SARS-CoV-2 RNA (RT-PCR) Assessment and Plan (1) Asthma with exacerbation: Status: Acute Plan 67-year-old female with past medical history of asthma presents to the hospital with asthma exacerbation #? acute asthma exacerbation( mild intermittent asthma excerebation) - ? dyspnea, cough, wheezing -? continues to have symptoms despite multiple rounds of DuoNebs, as well as IV Solu-Medrol -? will obtain peak flow -? continue IV Solu-Medrol, DuoNeb p.r.n. as well as scheduled ? monitor respiratory status #? hypertension -? stable -? continue home antihypertensive #? hypothyroidism -? continue levothyroxine ?DVT prophylaxis:? Early ambulation ongoing need hospitilisation-acute asthma exacerbation( mild intermittent asthma excerebation)- iv steriods ,nebs ,oxygen support. Time Spent With Patient Time: Total time managing care of this patient today ____ minutes. Quality Stroke Does the patient have a stroke diagnosis?: No VTE Prior VTE?: No VTE Risk Level:: Medical - low VTE Device Contraindication: Treatment Not Indicated VTE Drug Contraindication: Treatment Not Indicated
[2022-10-06] VITALS (7 sets, daily range): BP systolic 112–156; BP diastolic 52–86; PULSE 49–81; RESP 15–20; TEMP 36.1–36.9; O2SAT 91–96
[2022-10-06] MEDS: Levothyroxine Sodium 88 MCG TABLET PO (05:52)
[2022-10-06] MEDS: Omeprazole 40 MG CAPSULE.DR PO ×2 (05:52→16:00)
[2022-10-06] MEDS: methylPREDNISolone Sod Succ 40 MG/ML VIAL IVPUSH ×2 (05:53→17:35)
[2022-10-06 07:34] LABS: Glucose, Whole Blood 139 mg/dL (60-115)
[2022-10-06] MEDS: amLODIPine Besylate 5 MG TABLET PO (09:00)
[2022-10-06] MEDS: 0.9 % Sodium Chloride Flush 3 ML SYRINGE IVFLUSH ×3 (09:00→19:40)
[2022-10-06] MEDS: guaiFENesin LA 600 MG TAB.ER.12H PO ×2 (09:00→19:40)
[2022-10-06 09:48] LABS: Alanine Aminotransferase 17 U/L (0-31); Albumin Level 3.5 g/dL (3.5-5.0); Alkaline Phosphatase 74 U/L (39-117); Anion Gap 15 (12-20); Aspartate Amino Transferase 15 U/L (5-31); Bilirubin Direct < 0.2 mg/dL (0.0-0.5); Bilirubin Total 0.3 mg/dL (0.0-1.0); Blood Urea Nitrogen 24 mg/dL (9-16); Calcium 9.2 mg/dL (8.4-10.2); Carbon Dioxide 23 mmol/L (22-29); Chloride 107 mmol/L (96-108); Creatinine Clr Calc Pharmacy 52.2; Estimated Glomerular Filt Rate > 60; Glucose Random 174 mg/dL (60-115); Potassium 4.6 mmol/L (3.3-5.1); Sodium 140 mmol/L (135-145); Total Protein 7.1 g/dL (6.5-8.0)
--- NOTE | 2022-10-06 10:07 | P.PNIM_ITS ---
Subjective Subjective Date of Service: 10/06/22 Interval History: asthma exacerbtion still with dry cough c/o back pain and migraine Physical Exam Vital Signs: Vital Signs: Last Vital Signs Temp 97.2 F 10/06/22 07:13 Pulse 49 L 10/06/22 07:13 Resp 20 10/06/22 07:13 BP 112/52 L 10/06/22 07:13 Pulse Ox 93 10/06/22 07:13 O2 Del Method 10/06/22 07:13 O2 Flow Rate 1 10/05/22 09:22 BMI result Body Mass Index 26.9 Appearing in no acute distress lung sounds exp wheezing heart regular rate rhythm, clear S1, S2 positive bowel sounds, abdomen is soft, nontender neuro patient is alert x3, no focal deficits Objective Data Active Medications Acetaminophen (Acetaminophen 325 Mg Tablet) 650 mg PO Q6H PRN PRN Reason: Pain, Moderate (Pain Scale 4-6 Last Admin: 10/05/22 17:08 Dose: 650 mg Documented By: CATRACHITO Acetaminophen/Butalbital/Caffeine (Butalb/Acetamin/Caff 50/325/40 Tablet) 1 tab PO Q4H PRN PRN Reason: Migraine Headache Albuterol/Ipratropium (Albuterol/Iprat 2.5/0.5mg 3 Ml Ampul.Neb) 3 ml INHALE Q4H PRN PRN Reason: Shortness of Breath/Wheezing Last Admin: 10/04/22 22:59 Dose: 3 ml Documented By: VINCENT Albuterol/Ipratropium (Albuterol/Iprat 2.5/0.5mg 3 Ml Ampul.Neb) 3 ml INHALE RQ 4H WHILE AWAKE [facility] Last Admin: 10/06/22 09:31 Dose: Not Given Documented By: MELCHOR Non-Admin Reason: Not In Room Amlodipine Besylate (Amlodipine Besylate 5 Mg Tablet) 5 mg PO DAILY [facility]; Protocol Last Admin: 10/06/22 09:00 Dose: 5 mg Documented By: BROGrabiel Docusate Sodium (Docusate Sodium 100 Mg Capsule) 100 mg PO DAILY PRN PRN Reason: Constipation Guaifenesin (Guaifenesin La 600 Mg Tab.Er.12h) 600 mg PO BID [facility] Last Admin: 10/06/22 09:00 Dose: 600 mg Documented By: LISA Hydromorphone HCl (Hydromorphone Hcl 0.5 Mg/0.5 Ml Syringe) 0.25 mg IVPUSH Q4H PRN; Protocol PRN Reason: Pain, Mild (Pain Scale 1-3) Levothyroxine Sodium (Levothyroxine Sodium 88 Mcg Tablet) 88 mcg PO DAILY@0630 [facility] Last Admin: 10/06/22 05:52 Dose: 88 mcg Documented By: LEONARD Methylprednisolone Sodium Succinate (Methylprednisolone Sod Succ 40 Mg/Ml Vial) 40 mg IVPUSH Q12H [facility] Last Admin: 10/06/22 05:53 Dose: 40 mg Documented By: LEONARD Metoprolol Tartrate (Metoprolol Tartrate 50 Mg Tablet) 50 mg PO BID [facility]; Protocol Last Admin: 10/05/22 20:52 Dose: 50 mg Documented By: LEONARD Omeprazole (Omeprazole 40 Mg Capsule.Dr) 40 mg PO BID@0630,1600 [facility] Last Admin: 10/06/22 05:52 Dose: 40 mg Documented By: LEONARD Ondansetron HCl (Ondansetron Hcl 4 Mg/2 Ml Vial) 4 mg IVPUSH Q8H PRN PRN Reason: Nausea and Vomiting Pharmacy Consult (Consult Rx Perform Med Rec) 1 each MISCELLANE ONCE PRN PRN Reason: Consult order Sodium Chloride (0.9 % Sodium Chloride Flush 3 Ml Syringe) 3 ml IVFLUSH QSHIFT [facility] Last Admin: 10/06/22 09:00 Dose: 3 ml Documented By: LISA Labs CBC & Chem 7: 10/05/22 05:53 10/06/22 09:05 Labs: Laboratory Results - last 24 hr 10/06/22 10/06/22 07:10 09:05 Anion Gap 15 Estim Creat Clear Calc 52.2 Estimated GFR > 60 POC Glucose 139 H Random Glucose 174 H Calcium 9.2 Total Bilirubin 0.3 Direct Bilirubin < 0.2 AST 15 ALT 17 Alkaline Phosphatase 74 Total Protein 7.1 Albumin 3.5 Assessment and Plan (1) Asthma with exacerbation: Status: Acute Plan 67-year-old female with past medical history of asthma presents to the hospital with asthma exacerbation Acute asthma exacerbation, mild intermittent asthma Still with dry cough and wheezing, add Mucinex neg flu, rsv, covid continue solumedrol, and duonebs scheduled supplemental oxygen as needed Pleuritic chest/back pain likely from cough repeat CXR to r/o developing pna Elevated blood glucose readings. no hx of diabetes A1C 5.4 secondary to steroids Migraine headache Fioricet as needed HTN Continue home medications Hypothyroidism continue levothyroxine DVT prophylaxis:? Early ambulation Attending Dr. Ospina ongoing need hospitalization for acute asthma exacerbationrequiring iv steriods ,nebs ,oxygen support. Time Spent With Patient Time: Total time managing care of this patient today ____ minutes. Quality Stroke Does the patient have a stroke diagnosis?: No VTE Prior VTE?: No VTE Risk Level:: Medical - low VTE Device Contraindication: Treatment Not Indicated VTE Drug Contraindication: Treatment Not Indicated
[2022-10-06] MEDS: HYDROmorphone HCl 0.5 MG/0.5 ML SYRINGE 0.25 MG IVPUSH ×3 (11:35→21:14)
[2022-10-06] MEDS: Butalb/Acetamin/Caff 50/325/40 TABLET 1 TAB PO (11:35)
--- NOTE | 2022-10-06 15:16 | MHC.CM.PN ---
EMR REVIEWED, PT REMAINS FOR IV STEROIDS, NEBS. MADE INPT., IMM DELIVERED. CM WILL CONTINUE TO FOLLOW
[2022-10-06] MEDS: Albuterol/Iprat 2.5/0.5MG 3 ML AMPUL.NEB INHALE ×2 (15:38→19:18)
[2022-10-06] MEDS: guaiFENesin DM 100/10/5 ML 5 ML SYRUP PO (17:35)
[2022-10-07] MEDS: guaiFENesin DM 100/10/5 ML 5 ML SYRUP PO ×2 (01:37→12:39)
[2022-10-07 03:43] VITALS: BP 118/78; PULSE 79; RESP 17; TEMP 36.5; O2SAT 93
[2022-10-07] MEDS: HYDROmorphone HCl 0.5 MG/0.5 ML SYRINGE 0.25 MG IVPUSH ×2 (05:24→12:36)
[2022-10-07] MEDS: methylPREDNISolone Sod Succ 40 MG/ML VIAL IVPUSH (05:25)
[2022-10-07] MEDS: Omeprazole 40 MG CAPSULE.DR PO (05:26)
[2022-10-07] MEDS: Levothyroxine Sodium 88 MCG TABLET PO (05:26)
[2022-10-07 06:51] LABS: Anion Gap 11 (12-20); Blood Urea Nitrogen 24 mg/dL (9-16); Calcium 9.2 mg/dL (8.4-10.2); Carbon Dioxide 27 mmol/L (22-29); Chloride 106 mmol/L (96-108); Creatinine Clr Calc Pharmacy 60.9; Estimated Glomerular Filt Rate > 60; Glucose Random 131 mg/dL (60-115); Potassium 4.8 mmol/L (3.3-5.1); Sodium 139 mmol/L (135-145)
[2022-10-07 07:35] VITALS: PULSE 64; RESP 17; O2SAT 93
[2022-10-07] MEDS: Albuterol/Iprat 2.5/0.5MG 3 ML AMPUL.NEB INHALE ×3 (07:35→15:04)
[2022-10-07 07:56] VITALS: BP 119/56; PULSE 61; RESP 20; TEMP 36.3; O2SAT 93
--- NOTE | 2022-10-07 07:59 | PM.DS ---
DS: Providers Provider Date of Service: 10/07/22 Date of admission: 10/04/22 19:38 Primary care physician: Wesley Gonzalez MD Attending physician on discharge: Pop Macias Discharging clinician: Jackie Manzano DS: Diagnosis Discharge Diagnosis (1) Asthma with exacerbation: Status: Acute DS: Summary Hospital Course Hospital Course: HP as per admitting provider 67 Year old female with past medical history of hypothyroidism, asthma, hypertension presents to the hospital with complaints of shortness of breath, cough, wheezing for past 1 week.? Patient reports feeling febrile, has chills, shaking.? Has increased phlegm, has had nausea, episodes of vomiting, dizziness.? Has generalized body aches.? Had diarrhea this morning x3, currently resolved.? Denies any chest pain, no urinary symptoms and no lower extremity edema.? No orthopnea or PND On arrival to the ED patient hemodynamically stable slightly elevated? respiratory rate of 24 Labs are significant for WBC count of 8.7, labs otherwise unremarkable Viral serology negative, chest x-ray negative patient received multiple rounds of breathing? treatment, Mag sulfate, and Solu-Medrol with persistent symptoms, therefore patient will be admitted . Acute asthma exacerbation, mild intermittent asthma initially dry cough and wheezing, Mucinex added neg flu, rsv, covid treated with solumedrol, and duonebs scheduled and oxygen Home with 4 more days of prednisone, robitussin and mucinex as needed Pleuritic chest/back pain likely from cough repeat CXR negative for consolidation Elevated blood glucose readings. no hx of diabetes A1C 5.4 secondary to steroids Migraine headache Treated with fioricet HTN Continue home medications Hypothyroidism continue levothyroxine Time Spent with Patient Time attestation: Total time managing care of this patient today ____ minutes. Discharge coordination time: Greater than 30 minutes Quality: Safe Use of Opioids Does Pt have an Active Cancer Diagnosis on the Problem List?: No Quality: Stroke Does the patient have a stroke diagnosis?: No Physical Exam Vital Signs: Vital Signs: Last Vital Signs Temp 97.3 F 10/07/22 07:56 Pulse 61 10/07/22 07:56 Resp 20 10/07/22 07:56 BP 119/56 L 10/07/22 07:56 Pulse Ox 93 10/07/22 07:56 O2 Del Method 10/07/22 07:56 O2 Flow Rate 1 10/05/22 09:22 BMI result Body Mass Index 26.9 Appearing in no acute distress head is normocephalic atraumatic eyes pupils are PERRLA sclera is anicteric mouth throat mucous membranes are intact and moist neck is supple no lymphadenopathy, no JVD noted lung sounds are clear to auscultation heart regular rate rhythm, clear S1, S2 positive bowel sounds, abdomen is soft, nontender neuro patient is alert x3, no focal deficits DS: Data Data Completed and Pending Labs on day of discharge: Laboratory Results - last 24 hr 10/06/22 10/07/22 09:05 06:06 Sodium 140 139 Potassium 4.6 D 4.8 Chloride 107 106 Carbon Dioxide 23 27 Anion Gap 15 11 L BUN 24 H 24 H Creatinine 0.84 0.72 Estim Creat Clear Calc 52.2 60.9 Estimated GFR > 60 > 60 Random Glucose 174 H 131 H Calcium 9.2 9.2 Total Bilirubin 0.3 Direct Bilirubin < 0.2 AST 15 ALT 17 Alkaline Phosphatase 74 Total Protein 7.1 Albumin 3.5 Discharge Plan Discharge Anticipated Discharge Date/Time: 10/07/22 07:55 Patient Disposition: Home, Self-Care Discharge Diagnosis: Asthma exacerbation Referrals: Wesley Gonzalez MD [Primary Care Provider] - 1 Week Discharge Medications: New dextromethorphan-guaifenesin 10-100 mg/5 mL Syrup 5 ml PO Q6H PRN (Reason: Cough) Qty: 237 0RF guaifenesin [Mucinex] 600 mg Tablet Extended Release 12hr 600 mg PO BID Qty: 9 0RF prednisone 10 mg tablet 40 mg PO DAILY Qty: 4 0RF Continued omeprazole 40 mg capsule,delayed release(DR/EC) 1 cap PO BID levothyroxine 88 mcg tablet 1 tab PO DAILY amlodipine 5 mg tablet 1 tab PO DAILY metoprolol tartrate 50 mg tablet 1 tab PO BID lisinopril 40 mg tablet 1 tab PO DAILY Discharge Orders: Discharge Order (Routine); Ordered 10/07/22 Ordered By: Jackie Manzano Diet: Advance to usual diet Activity on Discharge: As tolerated Stand Alone Forms: Patient Portal Discharge page Care Plan Goals: complete resolution of symptoms Health Concerns: asthma exacerbation Plan of Treatment: Follow up with your primary care provider as needed Take all medications as prescribed Assessment: see discharge summary
[2022-10-07] MEDS: 0.9 % Sodium Chloride Flush 3 ML SYRINGE IVFLUSH (08:00)
[2022-10-07] MEDS: guaiFENesin LA 600 MG TAB.ER.12H PO (08:00)
[2022-10-07] MEDS: amLODIPine Besylate 5 MG TABLET PO (08:00)
--- NOTE | 2022-10-07 08:24 | MHC.CM.PN ---
Patient has been medically cleared for dc to home today, self care. Last IMM addressed on 10/06/2022.
[2022-10-07 11:16] VITALS: BP 127/62; PULSE 68; RESP 20; TEMP 36.4; O2SAT 92
[2022-10-07 11:24] VITALS: PULSE 61; RESP 20; O2SAT 93
[2022-10-07 15:05] VITALS: PULSE 61; RESP 16; O2SAT 93
== END 2022-10-07 17:41 | disposition home or self-care (01) | DRG 203 ==
LOC: HO.ED 18:12 → HO.EDOVER 10-05 07:17 → HO.IMC 10-06 08:06 → HO.EDOVER 10-06 14:45 → HO.IMC 10-06 14:45
PROVIDERS: Internal Medicine; Physician Assistant; Admitting Provider Internal Medicine; Emergency Provider Emergency Medicine; PCP Internal Medicine; Visit Provider Nurse Practitioner Acute Care
DX: J45.21 Mild intermittent asthma with (acute) exacerbation (principal); E03.9 Hypothyroidism, unspecified; R73.9 Hyperglycemia, unspecified; T38.0X5A Adverse effect of glucocorticoids and synthetic analogues, initial encounter; I10 Essential (primary) hypertension; Z20.822 Contact with and (suspected) exposure to COVID-19; Z88.0 Allergy status to penicillin; Z88.5 Allergy status to narcotic agent; Z79.890 Hormone replacement therapy; Z79.899 Other long term (current) drug therapy
CPT/HCPCS: 0241U; 36415; 71045; 80048; 80076; 82803; 82947; 83036; 84145; 85025; 93005; 94640; 99219; 99222; 99285; J1170; J1885; J2920; J2930; J3475

== ENCOUNTER 2022-10-22 12:15 | Outpatient (REF) | payer OTHER, SELFPAY ==
[2022-10-22 13:35] LABS: MANUAL DIFF FLAG NO
[2022-10-22 13:44] LABS: Basophils Percent Auto 0.4 % (0-2); Eosinophils Absolute Auto 0.2 X10*3/uL (0.0-0.4); Eosinophils Percent Auto 2.2 % (0-4); Hematocrit 37.6 % (37.0-47.0); Hemoglobin 11.7 g/dl (12.0-16.0); Imm Gran Abs Auto 0.02 X10*3/uL (0.00-0.03); Imm Gran Pct Auto 0.3 % (0.0-0.4); Lymphocytes Absolute Auto 1.5 X10*3/uL (1.2-4.9); Lymphocytes Percent Auto 20.2 % (20-40); Mean Corpuscular HGB Conc 31.1 g/dl (31.0-35.0); Mean Corpuscular Hemoglobin 28.9 pg (27.0-33.0); Mean Corpuscular Volume 92.8 fL (80.0-98.0); Mean Platelet Volume 11.5 fL (9.4-12.3); Monocytes Absolute Auto 0.5 X10*3/uL (0.1-1.2); Monocytes Percent Auto 7.5 % (2-11); Neutrophils Percent Auto 69.4 % (45-73); Platelet Count 299 X10*3/uL (160-400); Red Blood Count 4.05 X10*6/uL (4.20-5.50); Red Cell Distribution Width 12.6 % (11.0-16.0); White Blood Count 7.2 X10*3/uL (4.8-10.8)
[2022-10-22 14:08] LABS: Estimated Average Glucose 117 mg/dL; Hemoglobin A1C 122.1839 umol/L; Hemoglobin A1c % 5.7 %
[2022-10-22 14:30] LABS: Alanine Aminotransferase 29 U/L (0-31); Albumin Level 3.6 g/dL (3.5-5.0); Alkaline Phosphatase 94 U/L (39-117); Anion Gap 11 (12-20); Aspartate Amino Transferase 27 U/L (5-31); Bilirubin Total 0.6 mg/dL (0.0-1.0); Blood Urea Nitrogen 17 mg/dL (9-16); C Reactive Protein 0.31 mg/dL (< or = 0.50); Calcium 9.2 mg/dL (8.4-10.2); Carbon Dioxide 29 mmol/L (22-29); Chloride 106 mmol/L (96-108); Cholesterol 177 mg/dL; Estimated Glomerular Filt Rate > 60; Glucose Fasting 114 mg/dL (60-99); Potassium 3.3 mmol/L (3.3-5.1); Sodium 143 mmol/L (135-145); Total Protein 6.8 g/dL (6.5-8.0)
[2022-10-22 14:48] LABS: Free T4 (Free Thyroxine) 0.92 ng/dL (0.71-1.85); Thyroid Stimulating Hormone 3.89 uIU/mL (0.32-4.0)
[2022-10-22 14:54] LABS: Vitamin B12 464 pg/mL (200-900)
== END 2022-10-22 12:16 | disposition home or self-care (01) ==
LOC: HO.10HDL 12:15
PROVIDERS: Visit Provider Internal Medicine
DX: M81.0 Age-related osteoporosis without current pathological fracture (principal); E03.9 Hypothyroidism, unspecified; R53.83 Other fatigue; I10 Essential (primary) hypertension
CPT/HCPCS: 36415; 80053; 82306; 82465; 82607; 83036; 84439; 84443; 85025; 86140

== ENCOUNTER 2023-02-18 16:48 | Emergency (ER) | payer OTHER, SELFPAY ==
[2023-02-18 17:08] VITALS: BP 160/66; PULSE 80; RESP 18; TEMP 36.3; O2SAT 96; BMI 31.0
--- NOTE | 2023-02-18 17:08 | ED.EYEPROB ---
HPI - Eye Problem General Chief complaint: Eye Problems <ERNA Stewart - Last Filed: 02/18/23 17:12> Stated complaint: glue left eye <ERNA Stewart - Last Filed: 02/18/23 17:12> Time Seen by Provider: 02/18/23 17:25 <ERNA Stewart - Last Filed: 02/18/23 17:12> Source: patient <Theo Paulino - Last Filed: 02/18/23 17:50> Limitations: no limitations <Theo Paulino - Last Filed: 02/18/23 17:50> History of Present Illness HPI Narrative: 67-year-old female who accidentally use super glue the care was her eyedrops in her left eyelid around 10:00. Patient partially open right this time. Most the glue is the medial aspect. Patient denies any other complaints or eye pain. Symptoms mild to moderate. <Theo Paulino - Last Filed: 02/18/23 17:50> Related Data Home medications: Home Medications Medication Instructions Recorded Confirmed amlodipine 5 mg tablet 1 tab PO DAILY 10/04/22 10/04/22 levothyroxine 88 mcg tablet 1 tab PO DAILY 10/04/22 10/04/22 lisinopril 40 mg tablet 1 tab PO DAILY 10/04/22 10/04/22 metoprolol tartrate 50 mg tablet 1 tab PO BID 10/04/22 10/04/22 omeprazole 40 mg capsule,delayed 1 cap PO BID 10/04/22 10/04/22 release Previous Rx's Medication Instructions Recorded albuterol sulfate 90 mcg/actuation 1 inh inhalation Q4-6H PRN 10/07/22 breath activated powder inhaler shortness of breath or wheezing #1 ea azithromycin 500 mg tablet 500 mg PO DAILY 3 days #3 tabs 10/07/22 [id number]-jaetifiyprouc-htwjvwvq 1 tab PO Q4H PRN Migraine Headache 10/07/22 50 mg-325 mg-40 mg tablet #12 tabs dextromethorphan-guaifenesin 10 5 ml PO Q6H PRN Cough #237 mL 10/07/22 mg-100 mg/5 mL oral syrup guaifenesin 600 mg tablet, 600 mg PO BID #9 tabs 10/07/22 extended release 12 hr (Mucinex) ipratropium 0.5 mg-albuterol 3 mg 3 ml inhalation Q4H PRN Shortness 10/07/22 (2.5 mg base)/3 mL nebulization Of Breath/Wheezing #90 mL soln prednisone 10 mg tablet 40 mg PO DAILY #4 tabs 10/07/22 <ERNA Stewart - Last Filed: 02/18/23 17:12> Allergies/adverse reactions: Allergies Allergy/AdvReac Type Severity Reaction Status Date / Time honey [HONEY] Allergy Severe RASH Verified 10/04/22 14:59 morphine [Morphine] Allergy Severe ITCHING, Verified 10/04/22 14:59 INCREASE ANXIETY, HALLUCINATION oxycodone [OXYCODONE] Allergy Intermediate ITCHING, Verified 10/04/22 14:59 INCREASE ANXIETY. amoxicillin [Amoxicillin] Allergy Mild SWELLING Verified 10/04/22 14:59 milk [Milk] AdvReac Mild DIARRHEA, Verified 10/04/22 14:59 ABDOMINAL PAIN (REGULAR MILK ONLY) <ERNA Stewart - Last Filed: 02/18/23 17:12> Review of Systems Review of Systems: General: No fever, no chills Ophthalmology: Glue eyelid shot on left eye no eye pain ENT: No sore throat, no ear pain Skin: No rash <Theo Paulino - Last Filed: 02/18/23 17:50> PMF Past Medical History Attestation statement: The following information was validated with the patient. <Theo Paulino - Last Filed: 02/18/23 17:50> Medical History: Medical History Adult hypothyroidism Asthma Colitis Hypertension <ERNA Stewart - Last Filed: 02/18/23 17:12> Surgical History: Surgical History H/O section H/O: hysterectomy History of appendectomy History of cholecystectomy <ERNA Stewart - Last Filed: 02/18/23 17:12> Family History Family History: Family History Other No family history of coronary artery disease <ERNA Stewart Last Filed: 02/18/23 17:12> Social History Social History: Social History Household Members: None Housing: House Do you presently have visiting nurse or other home services: No Patient Tobacco Use Status: Never used Tobacco Advance Directives: No Advance Directives Information Provided: No service: No Current occupational status: employed <ERNA Stewart - Last Filed: 02/18/23 17:12> Physical Exam Vital Signs: Vital Signs: Last Vital Signs Temp 97.3 F 02/18/23 17:08 Pulse 80 02/18/23 17:08 Resp 18 02/18/23 17:08 BP 160/66 H 02/18/23 17:08 Pulse Ox 96 02/18/23 17:08 O2 Del Method Room Air 02/18/23 17:08 BMI result Body Mass Index 31.0 <ERNA Stewart - Last Filed: 02/18/23 17:12> Vital Signs: Last Vital Signs Temp 97.3 F 02/18/23 17:08 Pulse 80 02/18/23 17:08 Resp 18 02/18/23 17:08 BP 160/66 H 02/18/23 17:08 Pulse Ox 96 02/18/23 17:08 O2 Del Method Room Air 02/18/23 17:08 BMI result Body Mass Index 31.0 <Theo Paulino - Last Filed: 02/18/23 17:50> General appearance: Awake, alert, cooperative, in no acute distress Skin: Warm, dry, no rash Eyes: Left eyelid medially is glued together eyes partially open right eye pupils equal round reactive ENT: Oropharynx normal, uvula midline Neck: Soft supple full range of motion Extremities: No deformity, nontender, no peripheral edema noted Neuro: Alert oriented x3, no focal deficit Psych: Normal affect <Theo Paulino - Last Filed: 02/18/23 17:50> Course Course Course Narrative: RME 67 yo female presenting to the ED after getting nail glue in her left eye at about 10am today thinking they were her eye drops. She can open her eye a tiny bit. Plan : Full evaluation and treatment in [facility] [place] <ERNA Stewart - Last Filed: 02/18/23 17:12> Medications Administered Discontinued Medications Generic Name Dose Route Start Last Admin Trade Name Freq PRN Reason Stop Dose Admin Erythromycin 1 cm 02/18/23 17:31 02/18/23 17:37 Erythromycin Base 0.5% Oph Oin 1 Gm Tube EYE-LEFT 02/18/23 17:32 1 cm ONCE ONE Administration <ERNA Stewart - Last Filed: 02/18/23 17:12> Medications Administered Discontinued Medications Generic Name Dose Route Start Last Admin Trade Name Freq PRN Reason Stop Dose Admin Erythromycin 1 cm 02/18/23 17:31 02/18/23 17:37 Erythromycin Base 0.5% Oph Oin 1 Gm Tube EYE-LEFT 02/18/23 17:32 1 cm ONCE ONE Administration <Theo Paulino - Last Filed: 02/18/23 17:50> Medical Decision Making Medical Decision Making MDM Narrative: Left eye corneal abrasion Left eyelids glued together Will applied erythromycin ophthalmic to the left eye with a patch patient will be instructed to do that 3 times a day all the research suggests that I will open after 1-2 days Patient will be given Ophthalmology for follow-up if symptoms do not improve in the next 24-48 hours <Theo Paulino - Last Filed: 02/18/23 17:50> Discharge Plan Discharge Clinical Impression: Eyelid abnormality <ERNA Stewart Last Filed: 02/18/23 17:12> Patient Disposition: Home, Self-Care <ERNA Stewart Last Filed: 02/18/23 17:12> Additional Instructions: Erythromycin ophthalmic applied to left eye 3 times a day The eyelid should open within the next 24-48 hours If no improvement in 24-48 hours follow-up with Ophthalmology <ERNA Stewart Last Filed: 02/18/23 17:12> Prescriptions: No Action omeprazole 40 mg capsule,delayed release(DR/EC) 1 cap PO BID levothyroxine 88 mcg tablet 1 tab PO DAILY amlodipine 5 mg tablet 1 tab PO DAILY metoprolol tartrate 50 mg tablet 1 tab PO BID lisinopril 40 mg tablet 1 tab PO DAILY dextromethorphan-guaifenesin 10-100 mg/5 mL Syrup 5 ml PO Q6H PRN (Reason: Cough) Qty: 237 0RF guaifenesin [Mucinex] 600 mg Tablet Extended Release 12hr 600 mg PO BID Qty: 9 0RF prednisone 10 mg tablet 40 mg PO DAILY Qty: 4 0RF azithromycin 500 mg tablet 500 mg PO DAILY 3 Days Qty: 3 0RF bhxhpzdboq-iorgdftinnzwy-rgtm 50-325-40 mg Tablet 1 tab PO Q4H PRN (Reason: Migraine Headache) Qty: 12 0RF ipratropium-albuterol 0.5 mg-3 mg(2.5 mg base)/3 mL Solution For Nebulization 3 ml inhalation Q4H PRN (Reason: Shortness Of Breath/Wheezing) Qty: 90 0RF albuterol sulfate 90 mcg/actuation aerosol powdr breath activated 1 inh inhalation Q4-6H PRN (Reason: shortness of breath or wheezing) Qty: 1 0RF <ERNA Stewart - Last Filed: 02/18/23 17:12> Referrals: Earle Martinez [Physician] - <ERNA Stewart - Last Filed: 02/18/23 17:12> Stand Alone Forms: Work/School Release <ERNA Stewart - Last Filed: 02/18/23 17:12>
[2023-02-18] MEDS: Erythromycin Base 0.5% Oph Oin 1 GM TUBE 1 CM EYE-LEFT (17:37)
--- NOTE | 2023-02-18 17:43 | PC.NURSE ---
pt eye was covered with erythromycin eye ointment per order, covered with eye with eye patch followed by tape and elmer.
== END 2023-02-18 17:55 | disposition home or self-care (01) ==
PROVIDERS: Emergency Provider Emergency Medicine; PCP Internal Medicine
DX: H57.12 Ocular pain, left eye (principal); Z79.899 Other long term (current) drug therapy
CPT/HCPCS: 99282; 99283

== ENCOUNTER 2023-05-29 11:04 | Outpatient (REF) | payer OTHER, SELFPAY ==
--- NOTE | ~2023-05-29 | XR_ITS ---
EXAMINATION: XR SHOULDER, LEFT CLINICAL INFORMATION: Left shoulder pain. COMPARISON: None available. TECHNIQUE: Three views of the left shoulder. FINDINGS: There is a 2.3 x 0.6 x 1.3 cm focus of dense calcification in the supraspinatus tendon, most consistent with calcific tendinitis. No additional foci are identified at the left shoulder. Glenohumeral and acromioclavicular joints appear relatively well-preserved. No fracture or malalignment. Soft tissues are otherwise normal. XR/XR shoulder LT min 2V IMPRESSION: Calcific tendinitis of the left supraspinatus tendon. No acute osseous findings.
--- NOTE | ~2023-05-29 | XR_ITS ---
EXAMINATION: XR KNEES AP STANDING, BILATERAL XR KNEE, LEFT, 2 VIEWS XR KNEE, RIGHT, 2 VIEWS CLINICAL INFORMATION: Knee pain bilaterally. COMPARISON: 04/14/2018. TECHNIQUE: Standing AP view of both knees and lateral and sunrise views of each knee. FINDINGS: LEFT KNEE: There is chondrocalcinosis in the medial and lateral compartments. Mild medial compartment joint space narrowing. Bones are osteopenic. No joint effusion. No fracture or malalignment. Small enthesopathic spur at the quadriceps tendon insertion on the patella. RIGHT KNEE: Chondrocalcinosis is evident in both the medial and lateral compartments. Enthesopathic spurring is present at the quadriceps tendon insertion on the patella. No fracture or malalignment. Mild medial and lateral compartment joint space narrowing. Bones are osteopenic. No effusion. XR/XR knee RT 2V IMPRESSION: 1. Mild osteoarthritis in both knees, right greater than left, more notably in the medial compartments. 2. Chondrocalcinosis in both knees. 3. No acute osseous findings.
--- NOTE | ~2023-05-29 | XR_ITS ---
EXAMINATION: XR KNEES AP STANDING, BILATERAL XR KNEE, LEFT, 2 VIEWS XR KNEE, RIGHT, 2 VIEWS CLINICAL INFORMATION: Knee pain bilaterally. COMPARISON: 04/14/2018. TECHNIQUE: Standing AP view of both knees and lateral and sunrise views of each knee. FINDINGS: LEFT KNEE: There is chondrocalcinosis in the medial and lateral compartments. Mild medial compartment joint space narrowing. Bones are osteopenic. No joint effusion. No fracture or malalignment. Small enthesopathic spur at the quadriceps tendon insertion on the patella. RIGHT KNEE: Chondrocalcinosis is evident in both the medial and lateral compartments. Enthesopathic spurring is present at the quadriceps tendon insertion on the patella. No fracture or malalignment. Mild medial and lateral compartment joint space narrowing. Bones are osteopenic. No effusion. XR/XR knee standing BI IMPRESSION: 1. Mild osteoarthritis in both knees, right greater than left, more notably in the medial compartments. 2. Chondrocalcinosis in both knees. 3. No acute osseous findings.
--- NOTE | ~2023-05-29 | XR_ITS ---
EXAMINATION: XR KNEES AP STANDING, BILATERAL XR KNEE, LEFT, 2 VIEWS XR KNEE, RIGHT, 2 VIEWS CLINICAL INFORMATION: Knee pain bilaterally. COMPARISON: 04/14/2018. TECHNIQUE: Standing AP view of both knees and lateral and sunrise views of each knee. FINDINGS: LEFT KNEE: There is chondrocalcinosis in the medial and lateral compartments. Mild medial compartment joint space narrowing. Bones are osteopenic. No joint effusion. No fracture or malalignment. Small enthesopathic spur at the quadriceps tendon insertion on the patella. RIGHT KNEE: Chondrocalcinosis is evident in both the medial and lateral compartments. Enthesopathic spurring is present at the quadriceps tendon insertion on the patella. No fracture or malalignment. Mild medial and lateral compartment joint space narrowing. Bones are osteopenic. No effusion. XR/XR knee LT 2V IMPRESSION: 1. Mild osteoarthritis in both knees, right greater than left, more notably in the medial compartments. 2. Chondrocalcinosis in both knees. 3. No acute osseous findings.
== END 2023-05-29 11:05 | disposition home or self-care (01) ==
LOC: HO.HOSX 11:04
PROVIDERS: PCP Internal Medicine; Visit Provider Orthopaedic Surgery
DX: M17.0 Bilateral primary osteoarthritis of knee (principal); M75.32 Calcific tendinitis of left shoulder
CPT/HCPCS: 20610; 73030; 73560; 73565; J1100

== ENCOUNTER 2023-05-29 11:04 | Outpatient (AMB) | payer OTHER, SELFPAY ==
--- NOTE | 2023-05-29 11:13 | MHC.OFFVIS ---
Intake Intake Visit Reasons: OV-B/L knee injection-last injection 2019? Intake Note: Reyna is a 67 year old female who presents today as a new patient with complaints of bilateral knee pain. States she was last seen with Dr. Mendoza about 3 yrs ago where both of her knees were injected. These injections were helpful up until recent months. She would like to repeat injections. Allergies honey [HONEY] Allergy (Severe, Verified 05/29/23 11:19) RASH morphine [Morphine] Allergy (Severe, Verified 05/29/23 11:19) ITCHING, INCREASE ANXIETY, HALLUCINATION oxycodone [OXYCODONE] Allergy (Intermediate, Verified 05/29/23 11:19) ITCHING, INCREASE ANXIETY. amoxicillin [Amoxicillin] Allergy (Mild, Verified 05/29/23 11:19) SWELLING milk [Milk] Adverse Reaction (Mild, Verified 05/29/23 11:19) DIARRHEA, ABDOMINAL PAIN (REGULAR MILK ONLY) HPI OV-B/L knee injection-last injection 2019? HPI Details Reyna is a 67 year old woman who presents to discuss her bilateral knee OA. She was last seen and injected bilaterally by Dr. Mendoza in , with good relief. She complains today of worsening pain in her knees, and would like to repeat injections today. She also complains of pain in her left shoulder as well as limited ROM PFSH Medical History Adult hypothyroidism Asthma Colitis Hypertension Surgical History H/O section H/O: hysterectomy History of appendectomy History of cholecystectomy Family History Other No family history of coronary artery disease Social History Household Members: None Housing: House Do you presently have visiting nurse or other home services: No Patient Tobacco Use Status: Never used Tobacco service: No Current occupational status: employed Review of Systems Const All systems reviewed & are unremarkable except as noted in HPI and below Physical Exam Const General: no acute distress, alert and awake Orientation/consciousness: patient oriented x3 HEENT Head: Yes normocephalic and Yes atraumatic Eyes EOM: EOMs intact bilaterally Resp Effort & Inspection: normal respiratory effort and able to speak in complete sentences Cardio Jugular venous distension: no JVD Skin General skin exam: turgor normal Rashes: no rashes Neuro General: patient oriented x3 Extrem Other: Bilateral Knees: Full ROM Mild effusion Right knee TTP lateral compartment R>L Left Shoulder: + H&N Psych Appearance: grossly normal Affect: normal affect Attitude: cooperative Office Procedures Joint Injection/Drain Joint Injection/Drain Details: Injected 1 mL of Decadron and 3 mL 1% lidocaine and 3 mL of 0.25% Marcaine. Site was prepped using aseptic technique. Patient tolerated the procedure well. Primary Site: right knee Secondary Site: left knee Approach Used: anterolateral Coding - Large joint - Glenohumeral/Tronchanteric Bursa/Intraarticular Procedure code (CPT) selection complete Results Reviewed Results Reviewed: 05/29/23 11:19 BUPivacaine MPF 0.25 % [Sensorcaine-MPF 0.25% 10 ML] 10 ml .ROUTE .STK-MED ONE Lidocaine HCl 1 % [Xylocaine 1 %] 2 ml .ROUTE .STK-MED ONE Lidocaine HCl 2 % MPF [Xylocaine 2 % MPF] 5 ml .ROUTE .STK-MED ONE dexAMETHasone sod phosphate [Decadron] 4 mg .ROUTE .STK-MED ONE 05/29/23 11:55 BUPivacaine MPF 0.25 % [Sensorcaine-MPF 0.25% 10 ML] 10 ml .ROUTE .STK-MED ONE Lidocaine HCl 2 % MPF [Xylocaine 2 % MPF] 5 ml .ROUTE .STK-MED ONE dexAMETHasone sod phosphate [Decadron] 4 mg .ROUTE .STK-MED ONE I personally reviewed relevant radiographs. Left calcific tendinitis Bilateral knee OA of the lateral compartment Assessment & Plan Assessment & Plan (1) Bilateral primary osteoarthritis of knee: Code(s): M17.0 - Bilateral primary osteoarthritis of knee Plan: This is a 67 year old woman with bilateral knee lateral compartment OA. She has pain with daily activity. She had good relief from steroid injections in the past by Dr. Mendoza. I discussed her diagnosis and treatment options. I injected her bilateral knees today, which she tolerated well. She can follow up prn. (2) Calcific tendinitis of left shoulder: Code(s): M75.32 - Calcific tendinitis of left shoulder Plan: I injected her left shoulder, which she tolerated well, and recommend activity modification. Plan Scribed for Abdelrahman Julian MD by Jose Manning, medical van driver, on 05/29/23 at 11:35 AM, EST. Orders: Orders XR knee LT 2V 05/29/23 M25.569 - Pain in unspecified knee XR knee RT 2V 05/29/23 M25.569 - Pain in unspecified knee XR knee standing BI 05/29/23 M25.569 - Pain in unspecified knee XR shoulder LT min 2V 05/29/23 M25.519 - Pain in unspecified shoulder Coding Level of Care Code Est Pt Level 4 (00854) Diagnoses Bilateral primary osteoarthritis of knee M17.0 Calcific tendinitis of left shoulder M75.32 CPT Codes Coding - 89583 Large joint: 43992 - Large joint ([id number]) Coding - Joint 7: 77359 - Glenohumeral/Tronchanteric Bursa/Intraarticular ([id number])
== END 2023-05-29 12:05 | disposition home or self-care (01) ==
PROVIDERS: PCP Internal Medicine; Visit Provider Orthopaedic Surgery
DX: M17.0 Bilateral primary osteoarthritis of knee (principal); M75.32 Calcific tendinitis of left shoulder
CPT/HCPCS: 20610; 99204; 99214

== ENCOUNTER 2023-11-16 06:00 | Emergency (ER) | payer OTHER, SELFPAY ==
--- NOTE | ~2023-11-16 | XR_ITS ---
EXAMINATION: XR CHEST CLINICAL INFORMATION: Cough COMPARISON: AP portable chest 10/06/2022, PA chest 10/04/2022 TECHNIQUE: 2 views of the chest were obtained. 8:38 AM FINDINGS: No significant abnormality is noted involving the heart, lungs, mediastinum, bony thorax or soft tissues. Surgical clips in the right upper quadrant are consistent with prior cholecystectomy. XR/XR chest 2V IMPRESSION: No acute cardiopulmonary disease.
[2023-11-16 06:10] VITALS: BP 190/88; PULSE 81; RESP 16; TEMP 36.6; O2SAT 97; BMI 27.7
[2023-11-16 06:14] VITALS: BP 181/82; PULSE 70; RESP 16; TEMP 36.7; O2SAT 99
[2023-11-16 06:51] LABS: COVID-19 Test Negative (Negative); IDNOW Serial# 08D9AD1C; IDNOW Serial# 152EDE1D; Strep A Nucleic Acid Negative (Negative)
[2023-11-16 06:52] LABS: IDNOW Serial# 9DB6401D; Influenza A Negative (Negative); Influenza B2 Negative (Negative)
[2023-11-16 07:18] VITALS: BP 169/69; PULSE 61; RESP 16; TEMP 36.8; O2SAT 96
--- NOTE | 2023-11-16 07:18 | PC.NURSE ---
this RN resumed care of pt at this time. vss and up to date. pt verbalizing 10/10 headache at this time. nonproductive cough noted. lung sound cta. no sob/wob noted. respirations even and unlabored. medication administered per provider order. plan of care ongoing. call proctor placed within reach.
[2023-11-16] MEDS: Benzonatate 100 MG CAPSULE PO (07:19)
--- NOTE | 2023-11-16 07:24 | ED_ITS ---
HPI - URI/Sore Throat General Chief Complaint: Upper Respiratory Symptoms Stated Complaint: fever, flu like Time Seen by Provider: 11/16/23 06:33 Source: patient, RN notes reviewed and old records reviewed Mode of arrival: ambulatory History of Present Illness HPI Narrative: 68-year-old female with a past medical history of hypothyroid, hypertension, asthma, colitis, presenting to the ED complaining of headache, myalgias, body aches, sore throat, dry cough, subjective fever x1 week. 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 Reports mild SOB. Denies chest pain, travel, pedal edema, abdominal pain. Related Data Home Medications Medication Instructions Recorded Confirmed amlodipine 5 mg tablet 1 tab PO DAILY 10/04/22 10/04/22 levothyroxine 88 mcg tablet 1 tab PO DAILY 10/04/22 10/04/22 lisinopril 40 mg tablet 1 tab PO DAILY 10/04/22 10/04/22 metoprolol tartrate 50 mg tablet 1 tab PO BID 10/04/22 10/04/22 omeprazole 40 mg capsule,delayed 1 cap PO BID 10/04/22 10/04/22 release Previous Rx's Medication Instructions Recorded albuterol sulfate 90 mcg/actuation 1 inh inhalation Q4-6H PRN 10/07/22 breath activated powder inhaler shortness of breath or wheezing #1 ea azithromycin 500 mg tablet 500 mg PO DAILY 3 days #3 tabs 10/07/22 zqmxtojnam-elxeolnvoduvk-nqjbucnt 1 tab PO Q4H PRN Migraine Headache 10/07/22 50 mg-325 mg-40 mg tablet #12 tabs dextromethorphan-guaifenesin 10 5 ml PO Q6H PRN Cough #237 mL 10/07/22 mg-100 mg/5 mL oral syrup guaifenesin 600 mg tablet, 600 mg PO BID #9 tabs 10/07/22 extended release 12 hr (Mucinex) ipratropium 0.5 mg-albuterol 3 mg 3 ml inhalation Q4H PRN Shortness 10/07/22 (2.5 mg base)/3 mL nebulization Of Breath/Wheezing #90 mL soln prednisone 10 mg tablet 40 mg (4 x 10 mg) PO DAILY #4 tabs 10/07/22 albuterol sulfate 90 mcg/actuation 2 puff inhalation Q4-6H PRN 11/16/23 aerosol inhaler shortness of breath or wheezing #6.7 grams benzonatate 100 mg capsule 100 mg PO TID PRN cough #14 caps 11/16/23 prednisone 20 mg tablet 40 mg (2 x 20 mg) PO DAILY 5 days 11/16/23 #10 tabs Allergies Allergy/AdvReac Type Severity Reaction Status Date / Time honey [HONEY] Allergy Severe RASH Verified 05/29/23 11:19 morphine [Morphine] Allergy Severe ITCHING, Verified 05/29/23 11:19 INCREASE ANXIETY, HALLUCINATION oxycodone [OXYCODONE] Allergy Intermediate ITCHING, Verified 05/29/23 11:19 INCREASE ANXIETY. amoxicillin [Amoxicillin] Allergy Mild SWELLING Verified 05/29/23 11:19 milk [Milk] AdvReac Mild DIARRHEA, Verified 05/29/23 11:19 ABDOMINAL PAIN (REGULAR MILK ONLY) Review of Systems Review of Systems: Constitutional: + Fever, +chills, + fatigue ENT/Mouth: No Ear Pain, + Nasal Congestion, No Sinus Pain, No Hoarseness, + sore throat, + Rhinorrhea, No Swallowing Difficulty Cardiovascular: No Chest Pain, + SOB Respiratory: + Cough, No Sputum, No Wheezing Gastrointestinal: No Nausea, No Vomiting, No Diarrhea, No Constipation, No Abdominal pain Musculoskeletal: No joint pain, + Myalgias, No Joint Swelling Skin: No Skin Lesions, No rash Neuro: No Weakness, No Numbness, No Paresthesias Yes all other systems are reviewed and are negative Constitutional: Constitutional: Reports as per [facility] Past Medical History Attestation statement: The following information was validated with the patient. Source: old records reviewed Medical History Colitis Asthma Hypertension Adult hypothyroidism Surgical History H/O section History of appendectomy History of cholecystectomy H/O: hysterectomy Family History Family History Other No family history of coronary artery disease Social History Social History Household Members: None Housing: House Do you presently have visiting nurse or other home services: No Patient Tobacco Use Status: Never used Tobacco Smoked in Last 30 Days: No Use of substances other than those prescribed or required for medical reasons: No Advance Directives: Yes Advance Directives Information Provided: No Advance Directives on File: No service: No Current occupational status: employed Physical Exam Vital Signs: Vital Signs: Last Vital Signs Temp 98.3 F 11/16/23 07:18 Pulse 61 11/16/23 07:18 Resp 16 11/16/23 07:18 BP 169/69 H 11/16/23 07:18 Pulse Ox 96 11/16/23 07:18 O2 Del Method Room Air 11/16/23 07:18 BMI result Body Mass Index 27.7 Const: General: cooperative, healthy appearing and no acute distress Orientation/consciousness: patient oriented x3 Limitations: no limitations HEENT: Head: Yes normal to inspection and Yes atraumatic Ears: hearing grossly normal bilaterally and external ears normal General nose exam: Normal external nose present Face and sinus: Yes normal facial exam Mouth: Normal oral and palatal mucosa present Throat: Yes posterior oropharynx normal, Yes tonsils normal and Yes uvula midline Eyes: General: appearance normal, both eyes and all related structures EOM: EOMs intact bilaterally Neck: Neck: Yes normal visual inspection and Yes no meningeal signs Resp: Effort & Inspection: normal respiratory effort and no respiratory distress Auscultation: clear to auscultation bilaterally, no crackles, no rales and no wheezes Cardio: Rate: regular rate Heart sounds: S1 normal heart sound present and S2 normal heart sound present GI: Inspection: Yes normal to inspection Palpation (GI): Soft to palpation, nontender, no guarding and not rigid Skin: Rashes: no rashes Wounds: no wounds Neuro: General: patient oriented x3, tone normal and no meningeal signs Cranial nerves: Yes CN's II-XII intact bilaterally Gait exam (Neuro): Normal gait present Extrem: General: Yes normal to inspection Course Course Course Narrative: -COVID/FLU, rapid strep negative -929--XR chest 2V IMPRESSION: No acute cardiopulmonary disease. Results discussed with patient including worrisome signs and symptoms and strict return precautions, and when to return to the emergency department. They verbalized understanding and feel safe for discharge at this time. Medications Administered Discontinued Medications Generic Name Dose Route Start Last Admin Trade Name Freq PRN Reason Stop Dose Admin Acetaminophen 650 mg 11/16/23 09:34 11/16/23 09:59 Acetaminophen 325 Mg Tablet PO 11/16/23 09:35 650 mg ONCE ONE Administration Benzonatate 100 mg 11/16/23 06:54 11/16/23 07:19 Benzonatate 100 Mg Capsule PO 11/16/23 06:55 100 mg ONCE ONE Administration Ketorolac Tromethamine 30 mg 11/16/23 09:34 11/16/23 09:59 Ketorolac Tromethamine 30 Mg/Ml Vial IM 11/16/23 09:35 30 mg ONCE ONE Administration Medical Decision Making Medical Decision Making MDM Narrative: 68-year-old female with a past medical history of hypothyroid, hypertension, asthma, colitis, presenting to the ED complaining of headache, myalgias, body aches, sore throat, dry cough, subjective fever x1 week. On exam vital signs stable, NAD, nontoxic appearing, lungs CTA, no pedal edema. Concern for viral illness. Rule out pneumonia vs bronchitis. Lower suspicion for ACS/PE or DVT Plan: Viral testing, rapid strep, CXR Please refer to course for remaining clinical decision making, interpretation of labs/imaging results, and discussions with consultants and/or family members. Differential Diagnosis Differential Diagnoses: The differential diagnosis associated with the presentation includes As above Admission/Observation Consideration of admission/observation: Escalation of care including admission/observation considered Lab Data [facility] Lab Attestation statement: I reviewed the patient's lab results. Labs: Lab Results 11/16/23 Range/Units 06:32 COVID-19 (LAVINIA) Negative (Negative) COVID-19 Clin Com See Note Influenza Type A (KONSTANTIN) Negative (Negative) Influenza Type B (KONSTANTIN) Negative (Negative) Influenza A & B Note See Note S. pyogenes GrpA KONSTANTIN Negative (Negative) Independent Interpretation I performed an independent interpretation of an: Plain X-Ray Radiology Impression Discussion of test interpretation with radiology: I have reviewed the radiologist's reading. External Record Review External record reviewed: Inpatient record, Office record, Outpatient record, Prior outpatient labs, Prior outpatient radiology, Primary care record and Outside ED record Tests considered The following testing was considered but not selected: As above Prescription Management I considered prescription management with: Antiviral and Antibiotic Discharge Plan Discharge Clinical Impression: Upper respiratory infection Patient Disposition: Home, Self-Care Instructions: Viral Syndrome (ED) Additional Instructions: You tested negative for COVID, flu, strep. Her x-rays unremarkable Tessalon Perles for cough take as needed Prednisone is a steroid which will help with bronchitis Use albuterol inhaler as needed at home for shortness of breath/wheezing. Follow-up with her doctor If symptoms persist or worsen return to the ED Prescriptions: New prednisone 20 mg tablet 40 mg PO DAILY 5 Days Qty: 10 0RF benzonatate 100 mg capsule 100 mg PO TID PRN (Reason: cough) Qty: 14 0RF albuterol sulfate 90 mcg/actuation HFA aerosol inhaler 2 puff inhalation Q4-6H PRN (Reason: shortness of breath or wheezing) Qty: 6.7 0RF No Action omeprazole 40 mg capsule,delayed release(DR/EC) 1 cap PO BID levothyroxine 88 mcg tablet 1 tab PO DAILY amlodipine 5 mg tablet 1 tab PO DAILY metoprolol tartrate 50 mg tablet 1 tab PO BID lisinopril 40 mg tablet 1 tab PO DAILY dextromethorphan-guaifenesin 10-100 mg/5 mL Syrup 5 ml PO Q6H PRN (Reason: Cough) Qty: 237 0RF guaifenesin [Mucinex] 600 mg Tablet Extended Release 12hr 600 mg PO BID Qty: 9 0RF prednisone 10 mg tablet 40 mg PO DAILY Qty: 4 0RF azithromycin 500 mg tablet 500 mg PO DAILY 3 Days Qty: 3 0RF yizdwrbdxg-kzuzgeokolxjg-tkik 50-325-40 mg Tablet 1 tab PO Q4H PRN (Reason: Migraine Headache) Qty: 12 0RF ipratropium-albuterol 0.5 mg-3 mg(2.5 mg base)/3 mL Solution For Nebulization 3 ml inhalation Q4H PRN (Reason: Shortness Of Breath/Wheezing) Qty: 90 0RF albuterol sulfate 90 mcg/actuation aerosol powdr breath activated 1 inh inhalation Q4-6H PRN (Reason: shortness of breath or wheezing) Qty: 1 0RF Referrals: Wesley Gonzalez MD [Primary Care Provider] - Stand Alone Forms: Work/School Release Interventions: ED Discharge Assessment Last Done: 11/16/23 10:06 Discharge Date/Time: 11/16/23 10:06
[2023-11-16] MEDS: Acetaminophen 325 MG TABLET 650 MG PO (09:59)
[2023-11-16] MEDS: Ketorolac Tromethamine 30 MG/ML VIAL IM (09:59)
--- NOTE | 2023-11-16 10:04 | PC.NURSE ---
medication administered per provider order.
== END 2023-11-16 10:06 | disposition home or self-care (01) ==
PROVIDERS: Emergency Provider Emergency Medicine; PCP Internal Medicine
DX: R50.9 Fever, unspecified (principal); R51.9 Headache, unspecified; M79.10 Myalgia, unspecified site; R05.9 Cough, unspecified; Z79.899 Other long term (current) drug therapy; Z11.52 Encounter for screening for COVID-19
CPT/HCPCS: 71046; 87502; 87635; 87651; 96372; 99284; J1885

== ENCOUNTER 2023-11-24 12:44 | Outpatient (REF) | payer OTHER, SELFPAY ==
[2023-11-24 13:26] LABS: MANUAL DIFF FLAG NO
[2023-11-24 13:33] LABS: Basophils Percent Auto 0.6 % (0-2); Eosinophils Absolute Auto 0.2 X10*3/uL (0.0-0.4); Eosinophils Percent Auto 2.1 % (0-4); Hematocrit 41.2 % (37.0-47.0); Hemoglobin 13.3 g/dl (12.0-16.0); Imm Gran Abs Auto 0.01 X10*3/uL (0.00-0.03); Imm Gran Pct Auto 0.1 % (0.0-0.4); Lymphocytes Absolute Auto 1.7 X10*3/uL (1.2-4.9); Mean Corpuscular HGB Conc 32.3 g/dl (31.0-35.0); Mean Corpuscular Hemoglobin 29.6 pg (27.0-33.0); Mean Corpuscular Volume 91.8 fL (80.0-98.0); Monocytes Absolute Auto 0.6 X10*3/uL (0.1-1.2); Monocytes Percent Auto 8.2 % (2-11); Neutrophils Absolute Auto 4.7 x10*3/uL (2.0-8.3); Platelet Count 243 X10*3/uL (160-400); Red Blood Count 4.49 X10*6/uL (4.20-5.50); Red Cell Distribution Width 12.5 % (11.0-16.0); White Blood Count 7.2 X10*3/uL (4.8-10.8)
[2023-11-24 13:37] LABS: Estimated Average Glucose 117 mg/dL; Hemoglobin A1c % 5.7 % (<6.0)
[2023-11-24 14:00] LABS: Alanine Aminotransferase 25 U/L (0-31); Albumin Level 3.8 g/dL (3.5-5.0); Alkaline Phosphatase 114 U/L (39-117); Anion Gap 11 (12-20); Aspartate Amino Transferase 32 U/L (5-31); Bilirubin Total 0.4 mg/dL (0.0-1.0); Blood Urea Nitrogen 15 mg/dL (9-16); Calcium 9.2 mg/dL (8.4-10.2); Carbon Dioxide 29 mmol/L (22-29); Chloride 105 mmol/L (96-108); Cholesterol 142 mg/dL (<200); Estimated Glomerular Filt Rate > 60; Glucose Fasting 96 mg/dL (60-99); HDL Cholesterol 51 mg/dL (>40); LDL Cholesterol Calculated 73 mg/dL (<100); Potassium 3.7 mmol/L (3.3-5.1); Sodium 141 mmol/L (135-145); Total Protein 7.6 g/dL (6.5-8.0); Triglycerides 92 mg/dL (<150)
[2023-11-24 14:08] LABS: Free T4 (Free Thyroxine) 0.76 ng/dL (0.71-1.85); Thyroid Stimulating Hormone 6.41 uIU/mL (0.32-4.0); Vitamin D 25-OH Total 24.7 ng/mL (>30)
== END 2023-11-24 12:45 | disposition home or self-care (01) ==
LOC: HO.10HDL 12:44
PROVIDERS: Visit Provider Internal Medicine
DX: I10 Essential (primary) hypertension (principal); E03.9 Hypothyroidism, unspecified; K21.9 Gastro-esophageal reflux disease without esophagitis; J45.909 Unspecified asthma, uncomplicated; R73.03 Prediabetes; E55.9 Vitamin D deficiency, unspecified
CPT/HCPCS: 36415; 80053; 80061; 82306; 83036; 84439; 84443; 85025

== ENCOUNTER 2024-01-05 10:04 | Outpatient (REF) | payer MEDICARE, SELFPAY ==
--- NOTE | ~2024-01-05 | MM_ITS ---
EXAMINATION: MM SCREENING DIGITAL BREAST TOMOSYNTHESIS, BILATERAL CLINICAL INFORMATION: Screening. Asymptomatic. COMPARISON: Mammography: This study is compared with prior exams dating back to 2016. TECHNIQUE: Digital breast tomosynthesis is performed in both the craniocaudal and mediolateral oblique views along with computer-aided detection (CAD). Synthesized 2D images are generated from the tomosynthesis. FINDINGS: There are scattered areas of fibroglandular density (ACR BI-RADS breast composition Category b). There are no significant masses, abnormal calcifications, or other abnormalities. MM/MM tomosynthesis screening BI IMPRESSION: No mammographic evidence of malignancy. ASSESSMENT: BI-RADS BI-RADS 1 - Negative RECOMMENDATION: Routine annual mammography screening. 1 year F/U This examination should not preclude the clinical evaluation of a suspicious palpable abnormality. This patient's information was entered into a reminder system with a target due date for their next mammogram.
--- NOTE | ~2024-01-05 | MM_ITS ---
EXAMINATION: BONE DENSITOMETRY CLINICAL INDICATION: Menopause. COMPARISON: Previous BD dated 06/27/2016 and baseline BD dated 05/10/2014. TECHNIQUE: Using a ESILLAGE DXA System (software version: 13.1) manufactured by [employer], dual-energy x-ray absorptiometry was performed of the lumbar spine and left hip. The images are of good technical quality. Summary results are attached. FINDINGS: LEFT FEMUR, NECK: Current: BMD 0.629 g/cm2, Z-score -1.3, T-score -2.9, osteoporosis. Prior: BMD 0.643 g/cm2. Baseline: BMD 0.649 g/cm2. LEFT FEMUR, TOTAL: Current: BMD 0.797 g/cm2, Z-score -0.2, T-score -1.7, osteopenia, 1.1% increase from previous, 0.6% decrease from baseline (<5% change is not significant). Prior: BMD 0.788 g/cm2. Baseline: BMD 0.802 g/cm2. AP SPINE L1-L4: Current: BMD 0.707 g/cm2, Z-score -2.3, T-score -3.9, osteoporosis, 1.4% increase from previous, 0.6% increase from baseline (<5% change is not significant). Prior: BMD 0.697 g/cm2. Baseline: BMD 0.703 g/cm2. IDENTIFIED RISK FACTORS: Early menopause, height loss, bilateral oophorectomy, history of fracture (adult), hysterectomy, low calcium intake, osteoporosis, secondary osteoporosis. HISTORY OF FRACTURE: Other. MEDICATIONS: Calcium, vitamin D, fluoride. MM/XR DEXA axial skeleton IMPRESSION: 1. DIAGNOSIS: Osteoporosis based on the lowest T-score value of -3.9 in the lumbar spine applying World Health Organization criteria. 2. 10-YEAR FRACTURE RISK PREDICTION, FRAX: According to the guidelines, FRAX calculation should only be performed on patients in the osteopenia bone density category. Therefore, FRAX was not performed on this patient. 3. Treatment Recommendations: NOF guidelines recommend consideration for treatment in postmenopausal women and men age 50 and older presenting with the following: -A hip or vertebral (clinical or morphometric) fracture. -T-score less than or equal to -2.5 at the femoral neck or spine after appropriate evaluation to exclude secondary causes. -Low bone mass at the hip or spine and a 10-year fracture probability by FRAX of greater than or equal to 3% for hip fracture or greater than or equal to 20% for major osteoporotic fracture based on the [place] adapted WHO algorithm. 4. Other Recommendations: All treatment decisions require clinical judgment and consideration of individual patient factors, including patient preferences, comorbidities, previous drug use, risk factors not captured in the FRAX model (e.g. frailty, falls, vitamin D deficiency, increased bone turnover, interval significant decline in bone density) and possible under or overestimation of fracture risk by FRAX. Additional medical evaluation for secondary cause of low bone mineral density may be appropriate. FUTURE SCAN RECOMMENDATION: People with diagnosed cases of osteoporosis or at high risk for fracture should have regular bone mineral density tests. For patients eligible for Medicare, routine testing is allowed once every 2 years. The testing frequency can be increased to one year for patients who have rapidly progressing disease, those who are receiving or discontinuing medical therapy to restore bone mass, or have additional risk factors.
[2024-01-05 13:29] LABS: Appearance Urine Cloudy; Color Urine Yellow; Glucose Urine UA Negative (Negative); Leukocyte Esterase Urine Small (1+) (Negative); Nitrite Urine Negative (Negative); PH 7.5 (5.0-9.0); UMIC TRIGGER UACC YES; Urine Blood Negative (Negative); Urine Ketones Negative (Negative); Urine Protein Trace mg/dL (Neg-Trace)
[2024-01-05 13:36] LABS: Bacteria Urine 1+ (None Seen); Hyaline Casts Urine 0-2 /LPF (0-2); RBC Urine 0-2 /HPF (0-2); UACC Culture Trigger YES
== END 2024-01-05 10:05 | disposition home or self-care (01) ==
LOC: HO.MAMMO 10:04
PROVIDERS: PCP Internal Medicine; Visit Provider Internal Medicine
DX: R30.0 Dysuria (principal); Z12.31 Encounter for screening mammogram for malignant neoplasm of breast; E83.51 Hypocalcemia; R29.890 Loss of height; Z78.0 Asymptomatic menopausal state; Z90.722 Acquired absence of ovaries, bilateral; Z90.710 Acquired absence of both cervix and uterus; Z79.899 Other long term (current) drug therapy
CPT/HCPCS: 77063; 77067; 77080; 81001; 87086

== ENCOUNTER → 2024-01-05 10:30 | Outpatient (BNV) | payer MEDICARE, SELFPAY | PROVIDERS: PCP Internal Medicine; Visit Provider Radiology Diagnostic Radiology | DX: Z12.31 Encounter for screening mammogram for malignant neoplasm of breast (principal) | CPT/HCPCS: 77063; 77067 ==

== ENCOUNTER 2024-01-25 12:08 | Outpatient (REF) | payer MEDICARE, SELFPAY ==
[2024-01-25 13:05] LABS: MANUAL DIFF FLAG NO
[2024-01-25 13:11] LABS: Basophils Percent Auto 0.3 % (0-2); Eosinophils Absolute Auto 0.2 X10*3/uL (0.0-0.4); Eosinophils Percent Auto 2.4 % (0-4); Hematocrit 40.6 % (37.0-47.0); Hemoglobin 13.1 g/dl (12.0-16.0); Imm Gran Abs Auto 0.01 X10*3/uL (0.00-0.03); Imm Gran Pct Auto 0.1 % (0.0-0.4); Lymphocytes Absolute Auto 1.7 X10*3/uL (1.2-4.9); Lymphocytes Percent Auto 24.3 % (20-40); Mean Corpuscular HGB Conc 32.3 g/dl (31.0-35.0); Mean Corpuscular Hemoglobin 29.8 pg (27.0-33.0); Mean Corpuscular Volume 92.3 fL (80.0-98.0); Monocytes Absolute Auto 0.6 X10*3/uL (0.1-1.2); Monocytes Percent Auto 8.1 % (2-11); Neutrophils Absolute Auto 4.4 x10*3/uL (2.0-8.3); Neutrophils Percent Auto 64.8 % (45-73); Platelet Count 210 X10*3/uL (160-400); Red Cell Distribution Width 12.9 % (11.0-16.0); White Blood Count 6.8 X10*3/uL (4.8-10.8)
[2024-01-25 13:28] LABS: Alanine Aminotransferase 21 U/L (0-31); Albumin Level 3.9 g/dL (3.5-5.0); Alkaline Phosphatase 97 U/L (39-117); Anion Gap 10 (12-20); Aspartate Amino Transferase 25 U/L (5-31); Bilirubin Total 0.5 mg/dL (0.0-1.0); Blood Urea Nitrogen 14 mg/dL (9-16); C Reactive Protein 0.17 mg/dL (< or = 0.50); Calcium 9.4 mg/dL (8.4-10.2); Carbon Dioxide 27 mmol/L (22-29); Chloride 105 mmol/L (96-108); Estimated Glomerular Filt Rate > 60; Glucose Random 161 mg/dL (60-115); Potassium 3.4 mmol/L (3.3-5.1); Sodium 139 mmol/L (135-145); Total Protein 7.7 g/dL (6.5-8.0)
[2024-01-25 13:33] LABS: Rheumatoid Factor < 13.0 IU/mL (<15.0)
[2024-01-25 13:49] LABS: Vitamin B12 471 pg/mL (200-900)
[2024-01-25 13:57] LABS: Erythrocyte Sedimentation Rate 19 MM/HR (0-20)
[2024-01-27 11:59] LABS: Anti Nuclear Antibody Screen NEGATIVE (NEGATIVE)
== END 2024-01-25 12:09 | disposition home or self-care (01) ==
LOC: HO.10HDL 12:08
PROVIDERS: Visit Provider Internal Medicine
DX: J45.909 Unspecified asthma, uncomplicated (principal); I10 Essential (primary) hypertension; E03.9 Hypothyroidism, unspecified; M54.9 Dorsalgia, unspecified; M25.50 Pain in unspecified joint
CPT/HCPCS: 36415; 80053; 82550; 82607; 84439; 84443; 85025; 85652; 86038; 86140; 86431

== ENCOUNTER 2024-02-11 14:26 | Outpatient (AMB) | payer MEDICARE, SELFPAY ==
[2024-02-11 14:29] VITALS: BMI 27.6
--- NOTE | 2024-02-11 14:29 | MHC.OFFVIS ---
Vital Signs 02/11/24 14:29 Height 5 ft 1 in Weight 146 lb BMI 27.6 Intake Visit Reasons: ov- B/L shoulder pain/ inj? Intake Note: Reyna is a 68 year old right hand dominant female who presents today for a follow up of her bilateral shoulder pain. The left shoulder was injected 05/29/23 for calcific tendonitis. She explains that this injections were only helpful for about 2 weeks. 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 She is struggling with ADOL due to her pain. Allergies honey [HONEY] Allergy (Severe, Verified 01/05/24 10:56) RASH morphine [Morphine] Allergy (Severe, Verified 01/05/24 10:56) ITCHING, INCREASE ANXIETY, HALLUCINATION oxycodone [OXYCODONE] Allergy (Intermediate, Verified 01/05/24 10:56) ITCHING, INCREASE ANXIETY. amoxicillin [Amoxicillin] Allergy (Mild, Verified 01/05/24 10:56) SWELLING milk [Milk] Adverse Reaction (Mild, Verified 01/05/24 10:56) DIARRHEA, ABDOMINAL PAIN (REGULAR MILK ONLY) HPI HPI ov- B/L shoulder pain/ inj?: Details: This is a 68-year-old woman with bilateral shoulder pain. She denies injury. She is tried physical therapy and injections. Injections have been mildly helpful. She describes difficulty sleeping at night and difficulty with overhead activity. Her last radiographs showed significant calcific tendinitis of the left shoulder. [facility] Medical History Colitis Asthma Hypertension Adult hypothyroidism Surgical History H/O section History of appendectomy History of cholecystectomy H/O: hysterectomy Family History Other No family history of coronary artery disease Social History (System 01/05/24 @ 10:56 by Ludmila [place]) Household Members: None Housing: House Do you presently have visiting nurse or other home services: No Patient Tobacco Use Status: Never used Tobacco service: No Current occupational status: employed Physical Exam Vital Signs: BMI result Body Mass Index 27.6 Extrem Other: Negative but painful empty can on the left and 4/5 empty can on the right. Positive Pinedo Neer bilaterally 35/90/130/L5 bilaterally Assessment & Plan Assessment & Plan (1) Calcific tendinitis of left shoulder: Code(s): M75.32 - Calcific tendinitis of left shoulder Category: Medical Plan: I injected her left shoulder today. (2) Dysfunction of right rotator cuff: Code(s): M67.911 - Unspecified disorder of synovium and tendon, right shoulder Category: Medical Plan: This is a 68-year-old woman with persistent right shoulder pain with weakness on exam. She is active and healthy and I recommend MRI to assess. Orders: Orders MR shoulder RT wo con Today M67.911 - Unspecified disorder of synovium and tendon, right shoulder Coding Level of Care Code Est Pt Level 3 (89324) Diagnoses Calcific tendinitis of left shoulder M75.32 Dysfunction of right rotator cuff M67.911
== END 2024-02-11 16:25 | disposition home or self-care (01) ==
PROVIDERS: PCP Internal Medicine; Visit Provider Orthopaedic Surgery
DX: M75.32 Calcific tendinitis of left shoulder (principal); M67.911 Unspecified disorder of synovium and tendon, right shoulder
CPT/HCPCS: 20610; 99213

== ENCOUNTER → 2024-02-11 14:26 | Outpatient (BNVA) | payer MEDICARE, SELFPAY | PROVIDERS: PCP Internal Medicine; Visit Provider Orthopaedic Surgery | DX: M75.32 Calcific tendinitis of left shoulder (principal); M67.911 Unspecified disorder of synovium and tendon, right shoulder | CPT/HCPCS: 20610; 99212; J0665; J1100 ==

== ENCOUNTER 2024-02-18 14:29 | Outpatient (AMB) | payer MEDICARE, SELFPAY ==
--- NOTE | 2024-02-18 14:32 | MHC.OFFVIS ---
Intake Visit Reasons: ov- b/l knee pain/ inj? Intake Note: Reyna is a 67 year old female who presents today for a follow up of her bilateral knee OA last injections 05/29/23. Patient reports that she had good relief with the last set of injections and would like to repeat. Allergies honey [HONEY] Allergy (Severe, Verified 01/05/24 10:56) RASH morphine [Morphine] Allergy (Severe, Verified 01/05/24 10:56) ITCHING, INCREASE ANXIETY, HALLUCINATION oxycodone [OXYCODONE] Allergy (Intermediate, Verified 01/05/24 10:56) ITCHING, INCREASE ANXIETY. amoxicillin [Amoxicillin] Allergy (Mild, Verified 01/05/24 10:56) SWELLING milk [Milk] Adverse Reaction (Mild, Verified 01/05/24 10:56) DIARRHEA, ABDOMINAL PAIN (REGULAR MILK ONLY) HPI HPI ov- b/l knee pain/ inj?: Details: Reyna returns today with bilateral knee pain. She had injections about one year ago and would like repeat injections today. She describes pain with ambulation, especially stairs and pain after extended activity. She has radiographic evidence of chondrocalcinosis and mild OA, mostly affecting the medial compartment. [facility] Medical History Colitis Asthma Hypertension Adult hypothyroidism Surgical History H/O section History of appendectomy History of cholecystectomy H/O: hysterectomy Family History Other No family history of coronary artery disease Social History (System 01/05/24 @ 10:56 by Ludmila [place]) Household Members: None Housing: House Do you presently have visiting nurse or other home services: No Patient Tobacco Use Status: Never used Tobacco service: No Current occupational status: employed Physical Exam Extrem Other: TTP medial joint bilateral knees no effusion Office Procedures Joint Injection/Drain Joint Injection/Drain Details: Injected 1 mL of Decadron and 3 mL 1% lidocaine and 3 mL of 0.25% Marcaine. Site was prepped using aseptic technique. Patient tolerated the procedure well. Primary Site: right knee Secondary Site: left knee Approach Used: anterolateral Coding - Large joint 59030 - Glenohumeral/Tronchanteric Bursa/Intraarticular Procedure code (CPT) selection complete Assessment & Plan Assessment & Plan (1) Bilateral primary osteoarthritis of knee: Code(s): M17.0 - Bilateral primary osteoarthritis of knee Category: Medical Plan: This is a 68-year-old woman with bilateral knee osteoarthritis. She is benefitted from injections in the past and I injected bilateral knees today. I discussed this with her and recommend continued activity as tolerated. She may follow up sooner than 3 months. Coding Level of Care Code Est Pt Level 3 (41771) Diagnoses Bilateral primary osteoarthritis of knee M17.0 CPT Codes Coding - 97989 Large joint: 40782 - Large joint ([id number]) Coding - Joint 7: 00819 - Glenohumeral/Tronchanteric Bursa/Intraarticular ([id number])
== END 2024-02-18 15:08 | disposition home or self-care (01) ==
PROVIDERS: PCP Internal Medicine; Visit Provider Orthopaedic Surgery
DX: M17.0 Bilateral primary osteoarthritis of knee (principal)
CPT/HCPCS: 20610; 99213

== ENCOUNTER → 2024-02-18 14:29 | Outpatient (BNVA) | payer MEDICARE, SELFPAY | PROVIDERS: PCP Internal Medicine; Visit Provider Orthopaedic Surgery | DX: M17.0 Bilateral primary osteoarthritis of knee (principal) | CPT/HCPCS: 20610; 99212; J0665; J1100 ==

== ENCOUNTER 2024-03-23 21:14 | Emergency (ER) | payer MEDICARE, SELFPAY ==
--- NOTE | ~2024-03-23 | CT_ITS ---
EXAMINATION: CT ABDOMEN AND PELVIS WITHOUT CONTRAST CLINICAL INFORMATION: Left lower quadrant pain with nausea, vomiting and diarrhea with history of diverticulitis COMPARISON: CT abdomen pelvis 06/28/[address] scans of the abdomen and pelvis with the oldest being 07/16/2014 TECHNIQUE: Multidetector volumetric imaging was performed from the superior aspect of the liver through the pubic symphysis. Sagittal and coronal reformatted images were obtained on the technologist's workstation. This CT examination was performed using dose optimization techniques as appropriate, variously including the following: *Automated exposure control *Adjustment of mA and/or kV according to patient size (this includes techniques or standardized protocols for targeted exams where dose is matched to indication/reason for exam; i.e. extremities or head) *Use of iterative reconstruction technique DLP: 457 mGy-cm FINDINGS: LUNG BASES: Some new minimal atelectasis/infiltrate seen at the right lung base LIVER, GALLBLADDER, AND BILIARY TREE: The liver is normal in size, shape, and attenuation. No focal hepatic lesion or biliary ductal dilatation is present. Status post cholecystectomy. PANCREAS: Unremarkable. SPLEEN: Unremarkable. ADRENAL GLANDS: Unremarkable. KIDNEYS AND URETERS: The kidneys are normal in size, shape, and attenuation. No hydronephrosis, hydroureter, or calculi seen. No perinephric stranding. BLADDER: Unremarkable. GASTROINTESTINAL TRACT: There are extensive sigmoid diverticular changes seen without diverticulitis. The time of the 06/28/2020 study, inflammatory changes were present at the junction of the descending colon and sigmoid which has has subsequently cleared. There is a persistent ovoid fluid collection measuring 1.6 x 1.2 x 1.7 CMM (3:63). This has been present since at least 07/16/2014. The small and large bowel are otherwise unremarkable. The appendix is unremarkable. ABDOMINAL WALL: There is a small infraumbilical midline hernia containing only fat. No inguinal hernias. No epigastric hernia. LYMPH NODES: No retroperitoneal lymphadenopathy VASCULAR: Unremarkable. PELVIC VISCERA: There is a complex cystic mass in the midline beneath the bladder containing eccentric right-sided soft tissue density as well as stones. Appearances were similar and in 06/28/2020 study. This has in fact been present on the oldest scans dating back to 2013. OSSEOUS STRUCTURES: Unremarkable. CT/CT abdomen pelvis wo IV con IMPRESSION: 1. A cause for the patient's left lower quadrant pain, nausea and vomiting has not been found. 2. Cholecystectomy. 3. Extensive sigmoid diverticulosis without diverticulitis. 4. Small fluid collection in the left lower quadrant which has been present on the oldest scans dating back to 2013 and is not felt to be pathologic. 5. Complex cystic mass in the midline beneath the bladder containing soft tissue density as well as stones. Appearances were similar and in 06/28/2020 study. 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 Given the presence of what appears to be a solid component, MRI may be useful for further is evaluation to assess for the presence of neoplasm, however this does appear similar to the 2019 study and the stability would make neoplasm a less likely consideration. 6. Small infraumbilical midline hernia containing only fat. 7. New minimal atelectasis/infiltrate right lung base. Fleischner guidelines were followed.
[2024-03-23 21:17] VITALS: BP 163/77; PULSE 80; RESP 16; TEMP 36.4; O2SAT 97; BMI 28.9
[2024-03-23 22:11] LABS: MANUAL DIFF FLAG NO
[2024-03-23 22:12] LABS: Basophils Percent Auto 0.3 % (0-2); Eosinophils Absolute Auto 0.1 X10*3/uL (0.0-0.4); Eosinophils Percent Auto 1.1 % (0-4); Hematocrit 39.8 % (37.0-47.0); Hemoglobin 13.1 g/dl (12.0-16.0); Imm Gran Abs Auto 0.03 X10*3/uL (0.00-0.03); Imm Gran Pct Auto 0.3 % (0.0-0.4); Lymphocytes Absolute Auto 2.4 X10*3/uL (1.2-4.9); Lymphocytes Percent Auto 26.6 % (20-40); Mean Corpuscular HGB Conc 32.9 g/dl (31.0-35.0); Mean Corpuscular Hemoglobin 30.1 pg (27.0-33.0); Mean Corpuscular Volume 91.5 fL (80.0-98.0); Mean Platelet Volume 11.7 fL (9.4-12.3); Monocytes Absolute Auto 0.9 X10*3/uL (0.1-1.2); Monocytes Percent Auto 9.7 % (2-11); Neutrophils Absolute Auto 5.6 x10*3/uL (2.0-8.3); Platelet Count 238 X10*3/uL (160-400); Red Blood Count 4.35 X10*6/uL (4.20-5.50); Red Cell Distribution Width 13.1 % (11.0-16.0)
[2024-03-23 22:28] LABS: Alanine Aminotransferase 28 U/L (0-31); Alkaline Phosphatase 99 U/L (39-117); Anion Gap 14 (12-20); Aspartate Amino Transferase 39 U/L (5-31); Bilirubin Direct 0.2 mg/dL (0.0-0.5); Bilirubin Total 0.4 mg/dL (0.0-1.0); Blood Urea Nitrogen 17 mg/dL (9-16); Carbon Dioxide 27 mmol/L (22-29); Chloride 105 mmol/L (96-108); Creatinine Clr Calc Pharmacy 45.1; Estimated Glomerular Filt Rate 55; Glucose Random 152 mg/dL (60-115); Lipase 60 U/L (8-78); Potassium 3.6 mmol/L (3.3-5.1); Sodium 142 mmol/L (135-145); Total Protein 7.6 g/dL (6.5-8.0)
--- NOTE | 2024-03-23 22:37 | ED.ABDPAIN ---
HPI - Abdominal Pain General Chief Complaint: Abdominal Pain Stated Complaint: abd pain, vomiting Time Seen by Provider: 03/23/24 21:59 Source: patient Mode of arrival: ambulatory Limitations: no limitations History of Present Illness HPI narrative: Patient is a 68-year-old female who presents to the emergency department for evaluation of nausea, nonbloody emesis, and diarrhea without hematochezia or melena and associated umbilical/left lower quadrant abdominal pain. Onset of symptoms was yesterday. Admits to similar symptoms in the past with diverticulitis. Denies symptoms. Denies fevers but has been experiencing intermittent chills. Denies history of IBS, states she has not seen a GI specilist in the past for these symptoms. Related Data Home Medications ?Medication ?Instructions ?Recorded ?Confirmed amlodipine 5 mg tablet 1 tab PO DAILY 10/04/22 10/04/22 levothyroxine 88 mcg tablet 1 tab PO DAILY 10/04/22 10/04/22 lisinopril 40 mg tablet 1 tab PO DAILY 10/04/22 10/04/22 metoprolol tartrate 50 mg tablet 1 tab PO BID 10/04/22 10/04/22 omeprazole 40 mg capsule,delayed 1 cap PO BID 10/04/22 10/04/22 release Previous Rx's ?Medication ?Instructions ?Recorded albuterol sulfate 90 mcg/actuation 1 inh inhalation Q4-6H PRN 10/07/22 breath activated powder inhaler shortness of breath or wheezing #1 ea azithromycin 500 mg tablet 500 mg PO DAILY 3 days #3 tabs 10/07/22 erggqcrort-eceqmekvqpkhx-txrxeaxk 1 tab PO Q4H PRN Migraine Headache 10/07/22 50 mg-325 mg-40 mg tablet #12 tabs dextromethorphan-guaifenesin 10 5 ml PO Q6H PRN Cough #237 mL 10/07/22 mg-100 mg/5 mL oral syrup guaifenesin 600 mg tablet, 600 mg PO BID #9 tabs 10/07/22 extended release 12 hr (Mucinex) ipratropium 0.5 mg-albuterol 3 mg 3 ml inhalation Q4H PRN Shortness 10/07/22 (2.5 mg base)/3 mL nebulization Of Breath/Wheezing #90 mL soln prednisone 10 mg tablet 40 mg (4 x 10 mg) PO DAILY #4 tabs 10/07/22 albuterol sulfate 90 mcg/actuation 2 puff inhalation Q4-6H PRN 11/16/23 aerosol inhaler shortness of breath or wheezing #6.7 grams benzonatate 100 mg capsule 100 mg PO TID PRN cough #14 caps 11/16/23 prednisone 20 mg tablet 40 mg (2 x 20 mg) PO DAILY 5 days 11/16/23 #10 tabs dicyclomine 10 mg capsule 10 mg PO TID #20 caps 03/24/24 lorazepam 1 mg tablet (Ativan) 1 mg PO BID PRN anxiety #20 tabs 03/24/24 Allergies Allergy/AdvReac Type Severity Reaction Status Date / Time honey [HONEY] Allergy Severe RASH Verified 03/23/24 21:18 morphine [Morphine] Allergy Severe ITCHING, Verified 03/23/24 21:18 INCREASE ANXIETY, HALLUCINATION oxycodone [OXYCODONE] Allergy Intermediate ITCHING, Verified 03/23/24 21:18 INCREASE ANXIETY. amoxicillin [Amoxicillin] Allergy Mild SWELLING Verified 03/23/24 21:18 milk [Milk] AdvReac Mild DIARRHEA, Verified 03/23/24 21:18 ABDOMINAL PAIN (REGULAR MILK ONLY) Review of Systems Review of Systems Yes all other systems are reviewed and are negative PMFSH Past Medical History Attestation statement: The following information was validated with the patient. Source: old records reviewed Medical History Colitis Asthma Hypertension Adult hypothyroidism Surgical History H/O section History of appendectomy History of cholecystectomy H/O: hysterectomy Family History Family History Other No family history of coronary artery disease Social History Social History (System 01/05/24 @ 10:56 by Ludmila [place]) Household Members: None Housing: House Do you presently have visiting nurse or other home services: No Patient Tobacco Use Status: Never used Tobacco Advance Directives: No Advance Directives Information Provided: No Do you have a plan to hurt others: No Plan service: No Current occupational status: employed Physical Exam ED Vital Signs: Vital Signs - 24 hr 03/23/24 21:17 03/24/24 00:06 03/24/24 01:25 Temperature 97.6 F 97.4 F 97.8 F Pulse Rate 80 72 81 Respiratory Rate 16 18 16 Blood Pressure 163/77 H 137/62 168/68 H Pulse Oximetry 97 96 96 Oxygen Delivery Method Room Air Room Air Room Air BMI result Body Mass Index 28.9 Appearance: Alert.?Oriented to person, place and time. No acute distress.?Normal affect. Eyes: Pupils equal, round and reactive to light.? ENT: Pharynx normal.?? Neck: Normal inspection.? Neck supple.?? CVS: Heart sounds normal. Normal heart rate and rhythm.? Pulses normal.?? Respiratory: No respiratory distress.? Lung sounds clear to auscultation bilaterally?? Abdomen: Soft with left lower quadrant abdominal pain upon palpation no rigidity or guarding. Normoactive bowel sounds. No pulsatile mass.?? Skin: Skin warm and dry.? Normal skin color.?? Extremities: No lower extremity edema.? Neuro: Moves all extremities spontaneously. Sensation intact bilaterally. Ambulates with normal steady gait. Course Reevaluation(s) Reevaluation #1: Patient advised the food equipment service technician that she has an allergy to contrast dye. Reports that she received IV contrast for a scan in the past that resulted in her experiencing chest pain, shortness of breath, and a rash to her chest and arms, she reports that she was given Benadryl right away and the symptoms resolved. Time: 23:28 Reevaluation #2: CT of the abdomen and pelvis with extensive sigmoid diverticulosis but no diverticulitis, persistent fluid collection left lower quadrant as seen on prior scans, complex cystic mass of the bladder appearing similar to prior study in 2019. No clear explanation for patient's symptoms as these time. She continues to report left lower abdomen. I consulted with Dr. Begum who also evaluated patient at bedside. At this time patient endorses having a history of IBS, states she has been prescribed dicyclomine in the past from her primary care provider, but has not taken this in many years as she ran out of it. Will provide patient with dicyclomine in the ED today, and refer to Gastroenterology for further evaluation outpatient Medical Decision Making Medical Decision Making MDM Narrative: Patient is a 68-year-old female with past medical history of hypothyroidism, asthma, colitis, diverticulitis, hypertension who presents emergency department for evaluation left lower abdominal pain nausea vomiting diarrhea as per HPI. On exam she is exquisitely tender but is without rigidity or guarding. Plan to obtain CBC, CMP, CT of the abdomen and pelvis, in addition will receive saline IV, Zofran IV, fentanyl IV. Differential Diagnosis Differential Diagnoses: The differential diagnosis associated with the presentation includes (Diverticulitis, colitis, obstruction, perforation, urinary tract infection, renal colic, ureteral calculi) Admission/Observation Consideration of admission/observation: Escalation of care including admission/observation considered Lab Data MDM Lab Attestation statement: I reviewed the patient's lab results. CBC is without leukocytosis anemia or thrombocytopenia. No electrolyte derangement. No JACKI. Non-anion gap hyperglycemia of 152. 03/23/24 22:03 03/23/24 22:03 Labs: Lab Results 03/23/24 03/23/24 Range/Units 22:03 22:58 WBC 9.0 (4.8-10.8) X10*3/uL RBC 4.35 (4.20-5.50) X10*6/uL Hgb 13.1 (12.0-16.0) g/dl Hct 39.8 (37.0-47.0) % MCV 91.5 (80.0-98.0) fL MCH 30.1 (27.0-33.0) pg MCHC 32.9 (31.0-35.0) g/dl RDW 13.1 (11.0-16.0) % Plt Count 238 (160-400) X10*3/uL MPV 11.7 (9.4-12.3) fL Immature Gran % (Auto) 0.3 (0.0-0.4) % Neut % (Auto) 62.0 (45-73) % Lymph % (Auto) 26.6 (20-40) % Pi[place] % (Auto) 9.7 (2-11) % Eos % (Auto) 1.1 (0-4) % Baso % (Auto) 0.3 (0-2) % Lymph # (Auto) 2.4 (1.2-4.9) X10*3/uL [place] # (Auto) 0.9 (0.1-1.2) X10*3/uL Eos # (Auto) 0.1 (0.0-0.4) X10*3/uL Baso # (Auto) 0.0 (0.0-0.2) X10*3/uL Abs Immat Gran (auto) 0.03 (0.00-0.03) X10*3/uL Absolute Neuts (auto) 5.6 (2.0-8.3) x10*3/uL Absolute Nucleated RBC 0.000 (0.0-0.012) X10*3/uL Nucleated RBC % (auto) 0.0 (0.0-0.2) /100WBC Sodium 142 (135-145) mmol/L Potassium 3.6 (3.3-5.1) mmol/L Chloride 105 (96-108) mmol/L Carbon Dioxide 27 (22-29) mmol/L Anion Gap 14 (12-20) BUN 17 H (9-16) mg/dL Creatinine 0.99 (0.5-1.4) mg/dL Estim Creat Clear Calc 45.1 Estimated GFR 55 Random Glucose 152 H (60-115) mg/dL Calcium 9.0 (8.4-10.2) mg/dL Total Bilirubin 0.4 (0.0-1.0) mg/dL Direct Bilirubin 0.2 (0.0-0.5) mg/dL AST 39 H (5-31) U/L ALT 28 (0-31) U/L Alkaline Phosphatase 99 (39-117) U/L Total Protein 7.6 (6.5-8.0) g/dL Albumin 4.0 (3.5-5.0) g/dL Lipase 60 (8-78) U/L Urine Color Yellow Urine Appearance Clear Urine pH >= 9.0 (5.0-9.0) Ur Specific [place] 1.015 (1.005-1.025) Urine Protein Negative (Neg-Trace) mg/dL Urine Glucose (UA) Negative (Negative) mg/dL Urine Ketones Negative (Negative) mg/dL Urine Blood Negative (Negative) Urine Nitrite Negative (Negative) Ur Leukocyte Esterase Trace H (Negative) Urine RBC 0-2 (0-2) /HPF Urine WBC 0-5 (0-5) /HPF Ur Squamous Epith Cells 0-2 (0-2) /HPF Urine Bacteria None Seen (None Seen) Hyaline Casts 0-2 (0-2) /LPF Radiology Impression Discussion of test interpretation with radiology: I have reviewed the radiologist's reading. Radiologist Impression: CT/CT abdomen pelvis wo IV con IMPRESSION: 1. A cause for the patient's left lower quadrant pain, nausea and vomiting has not been found. 2. Cholecystectomy. 3. Extensive sigmoid diverticulosis without diverticulitis. 4. Small fluid collection in the left lower quadrant which has been present on the oldest scans dating back to 2013 and is not felt to be pathologic. 5. Complex cystic mass in the midline beneath the bladder containing soft tissue density as well as stones. Appearances were similar and in 06/28/2020 study. 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 Given the presence of what appears to be a solid component, MRI may be useful for further is evaluation to assess for the presence of neoplasm, however this does appear similar to the 2019 study and the stability would make neoplasm a less likely consideration. 6. Small infraumbilical midline hernia containing only fat. 7. New minimal atelectasis/infiltrate right lung base. Medications Administered Discontinued Medications Generic Name Dose Route Start Last Admin Trade Name Freq PRN Reason Stop Dose Admin Dicyclomine HCl 10 mg 03/24/24 00:45 03/24/24 00:49 Dicyclomine Hcl 10 Mg Capsule PO 03/24/24 00:46 10 mg ONCE ONE Administration Fentanyl 25 mcg 03/23/24 22:23 03/23/24 23:16 Fentanyl Citrate/Pf 100 Mcg/2 Ml Vial IVPUSH 03/23/24 22:24 25 mcg ONCE ONE Administration Protocol Sodium Chloride 1,000 mls @ 999 mls/hr 03/23/24 22:30 03/24/24 01:09 Ns IV 03/23/24 23:30 Infused .Q1H1M SALUD Infusion Ketorolac Tromethamine 15 mg 03/23/24 23:46 03/23/24 23:50 Ketorolac Tromethamine 15 Mg/Ml Vial IVPUSH 03/23/24 23:47 15 mg ONCE ONE Administration Ondansetron HCl 4 mg 03/23/24 22:23 03/23/24 23:16 Ondansetron Hcl 4 Mg/2 Ml Vial IVPUSH 03/23/24 22:24 4 mg ONCE ONE Administration Discharge Plan Discharge Clinical Impression: Irritable bowel syndrome Patient Disposition: Home, Self-Care Instructions: Irritable Bowel Syndrome (ED) Additional Instructions: As discussed, your blood tests, urine testing, and CT scan do not show an obvious cause for the symptoms your experiencing. You have been given a new prescription for dicyclomine to have taken in the past. Please contact your primary care provider to arrange for a follow-up visit, in addition I have provided contact information for the GI office associated without hospital given the ongoing nature of your symptoms. Return back to emergency department with any new or worsening symptoms or concerns. Take medication for anxiety Follow up with GI Avoid food as advised Prescriptions: New dicyclomine 10 mg capsule 10 mg PO TID Qty: 20 0RF lorazepam [Ativan] 1 mg tablet 1 mg PO BID PRN (Reason: anxiety) Qty: 20 0RF No Action omeprazole 40 mg capsule,delayed release(DR/EC) 1 cap PO BID levothyroxine 88 mcg tablet 1 tab PO DAILY amlodipine 5 mg tablet 1 tab PO DAILY metoprolol tartrate 50 mg tablet 1 tab PO BID lisinopril 40 mg tablet 1 tab PO DAILY dextromethorphan-guaifenesin 10-100 mg/5 mL Syrup 5 ml PO Q6H PRN (Reason: Cough) Qty: 237 0RF guaifenesin [Mucinex] 600 mg Tablet Extended Release 12hr 600 mg PO BID Qty: 9 0RF prednisone 10 mg tablet 40 mg PO DAILY Qty: 4 0RF azithromycin 500 mg tablet 500 mg PO DAILY 3 Days Qty: 3 0RF qowmatitai-fdtakqqtqlyro-rpfy 50-325-40 mg Tablet 1 tab PO Q4H PRN (Reason: Migraine Headache) Qty: 12 0RF ipratropium-albuterol 0.5 mg-3 mg(2.5 mg base)/3 mL Solution For Nebulization 3 ml inhalation Q4H PRN (Reason: Shortness Of Breath/Wheezing) Qty: 90 0RF albuterol sulfate 90 mcg/actuation aerosol powdr breath activated 1 inh inhalation Q4-6H PRN (Reason: shortness of breath or wheezing) Qty: 1 0RF prednisone 20 mg tablet 40 mg PO DAILY 5 Days Qty: 10 0RF benzonatate 100 mg capsule 100 mg PO TID PRN (Reason: cough) Qty: 14 0RF albuterol sulfate 90 mcg/actuation HFA aerosol inhaler 2 puff inhalation Q4-6H PRN (Reason: shortness of breath or wheezing) Qty: 6.7 0RF Referrals: Saul Zimmerman MD [Physician] - Wesley Gonzalez MD [Primary Care Provider] - Print Language: Comoran
[2024-03-23 23:09] LABS: Appearance Urine Clear; Color Urine Yellow; Glucose Urine UA Negative (Negative); Leukocyte Esterase Urine Trace (Negative); Nitrite Urine Negative (Negative); PH >= 9.0 (5.0-9.0); Specific Gravity - Urine 1.015 (1.005-1.025); UMIC TRIGGER UACC YES; Urine Blood Negative (Negative); Urine Ketones Negative (Negative); Urine Protein Negative (Neg-Trace)
[2024-03-23 23:15] LABS: Bacteria Urine None Seen (None Seen); Hyaline Casts Urine 0-2 /LPF (0-2); RBC Urine 0-2 /HPF (0-2); Squamous Epithelial Cell Urine 0-2 /HPF (0-2); WBC Urine 0-5 /HPF (0-5)
[2024-03-23] MEDS: 0.9 % Sodium Chloride 1,000 ML 999 ML IV (23:16)
[2024-03-23] MEDS: fentaNYL citrate/PF 100 MCG/2 ML VIAL 25 MCG IVPUSH (23:16)
[2024-03-23] MEDS: ondansetron HCL 4 MG/2 ML VIAL IVPUSH (23:16)
[2024-03-23] MEDS: Ketorolac Tromethamine 15 MG/ML VIAL IVPUSH (23:50)
[2024-03-24 00:06] VITALS: BP 137/62; PULSE 72; RESP 18; TEMP 36.3; O2SAT 96
[2024-03-24] MEDS: Dicyclomine HCl 10 MG CAPSULE PO (00:49)
--- NOTE | 2024-03-24 00:49 | PC.NURSE ---
Pt ca&ox4, no signs of distress. Pt medicated per mar. Plan of care ongoing.
[2024-03-24 01:25] VITALS: BP 168/68; PULSE 81; RESP 16; TEMP 36.6; O2SAT 96
[2024-03-24] MEDS: HYDROmorphone HCl 2 MG TABLET PO (01:34)
[2024-03-24 01:35] VITALS: BP 168/68; PULSE 81; RESP 16; TEMP 36.6; O2SAT 96
== END 2024-03-24 01:39 | disposition home or self-care (01) ==
PROVIDERS: Emergency Provider Internal Medicine; PCP Internal Medicine
DX: K58.8 Other irritable bowel syndrome (principal); R10.32 Left lower quadrant pain; R11.2 Nausea with vomiting, unspecified; Z79.899 Other long term (current) drug therapy
CPT/HCPCS: 36415; 74176; 80053; 81001; 82248; 83690; 85025; 96361; 96374; 96375; 99284; J1885; J2405; J3010

== ENCOUNTER 2024-04-29 08:55 | Outpatient (REF) | payer MEDICARE, SELFPAY ==
--- NOTE | ~2024-04-29 | MR_ITS ---
EXAMINATION: MR SHOULDER WITHOUT CONTRAST, RIGHT CLINICAL INFORMATION: Right shoulder pain. COMPARISON: None available. TECHNIQUE: MRI of the shoulder without contrast was performed on a high-field scanner. FINDINGS: ROTATOR CUFF: Infraspinatus tendinosis with a linear undersurface tear approximately 1.2 cm proximal to the tendon insertion. There may be a full-thickness perforation with prominent fluid noted throughout the subacromial subdeltoid bursa. There is a minimal (1 mm) interstitial insertional partial tear as well. The rotator cuff appears otherwise intact. Mild subscapularis tendinopathy. No muscle atrophy or fatty infiltration. BICEPS: Normal. CORACOACROMIAL ARCH: The undersurface of the acromion is curved with no subacromial spur. Mild acromioclavicular osteoarthritis. Subacromial subdeltoid and subcoracoid bursitis. LABRUM/CAPSULE: No definite labral tear. GLENOHUMERAL JOINT/MARROW: Small degenerative cysts at the superolateral aspect of the humeral head and the superior glenoid rim. No significant joint effusion. MR/MR shoulder RT wo con IMPRESSION: 1. Infraspinatus tendinosis with a small linear undersurface partial tear proximal to the tendon insertion. There may be a full-thickness perforation none prominent fluid throughout the subacromial subdeltoid bursa. 2. Mild subscapularis tendinopathy. 3. Mild acromioclavicular and glenohumeral osteoarthritis.
== END 2024-04-29 08:56 | disposition home or self-care (01) ==
LOC: HO.MRI 08:55
PROVIDERS: PCP Internal Medicine; Visit Provider Orthopaedic Surgery
DX: M67.911 Unspecified disorder of synovium and tendon, right shoulder (principal)
CPT/HCPCS: 73221

== ENCOUNTER 2024-05-26 11:08 | Outpatient (AMB) | payer MEDICARE, SELFPAY ==
--- NOTE | 2024-05-26 11:14 | MHC.OFFVIS ---
Vital Signs 05/26/24 11:16 Height 5 ft Weight 148 lb BMI 28.9 Intake Visit Reasons: R shoulder MRI review Intake Note: Reyna is a 68 year old female who presents today for an MRI review of her right shoulder. Pt states she would like an injection IMPRESSION: 1. Infraspinatus tendinosis with a small linear undersurface partial tear proximal to the tendon insertion. There may be a full-thickness perforation none prominent fluid throughout the subacromial subdeltoid bursa. 2. Mild subscapularis tendinopathy. 3. Mild acromioclavicular and glenohumeral osteoarthritis. Allergies honey [HONEY] Allergy (Severe, Verified 05/26/24 11:16) RASH morphine [Morphine] Allergy (Severe, Verified 05/26/24 11:16) ITCHING, INCREASE ANXIETY, HALLUCINATION oxycodone [OXYCODONE] Allergy (Intermediate, Verified 05/26/24 11:16) ITCHING, INCREASE ANXIETY. amoxicillin [Amoxicillin] Allergy (Mild, Verified 05/26/24 11:16) SWELLING milk [Milk] Adverse Reaction (Mild, Verified 05/26/24 11:16) DIARRHEA, ABDOMINAL PAIN (REGULAR MILK ONLY) HPI HPI R shoulder MRI review: Details: Reyna is a 68 year old female who presents today for an MRI review of her right shoulder. She has [facility] sleepign and overhead activity. I had previously injected her shoulder and she felt good but temporary relief. [facility] Medical History Colitis Asthma Hypertension Adult hypothyroidism Surgical History H/O section History of appendectomy History of cholecystectomy H/O: hysterectomy Family History Other No family history of coronary artery disease Social History (System 01/05/24 @ 10:56 by Ludmila [place]) Household Members: None Housing: House Do you presently have visiting nurse or other home services: No Patient Tobacco Use Status: Never used Tobacco service: No Current occupational status: employed Physical Exam Vital Signs: BMI result Body Mass Index 28.9 Extrem Other: Negative but painful empty can on the left and 4/5 empty can on the right. Positive Pinedo Neer bilaterally 35/90/130/L5 bilaterally Office Procedures Joint Injection/Aspiration Joint Injection/Aspiration Details: Injected 1 mL of Decadron and 3 mL 1% lidocaine and 3 mL of 0.25% Marcaine. Site was prepped using aseptic technique. Patient tolerated the procedure well. Primary Site: right shoulder Approach Used: posterolateral Coding 86751 - Large joint Procedure code (CPT) selection complete Results Reviewed Results Reviewed: IMPRESSION: 1. Infraspinatus tendinosis with a small linear undersurface partial tear proximal to the tendon insertion. There may be a full-thickness perforation none prominent fluid throughout the subacromial subdeltoid bursa. 2. Mild subscapularis tendinopathy. 3. Mild acromioclavicular and glenohumeral osteoarthritis. Assessment & Plan Assessment & Plan (1) Dysfunction of right rotator cuff: Code(s): M67.911 - Unspecified disorder of synovium and tendon, right shoulder Category: Medical Plan: Injected and PT. Not interested in surgery Orders: Orders PT Evaluation and Treatment Today M67.911 - Unspecified disorder of synovium and tendon, right shoulder Coding Level of Care Code Est Pt Level 3 (89620) Diagnoses Dysfunction of right rotator cuff M67.911 CPT Codes Coding - Large joint: 95588 - Large joint ([id number])
[2024-05-26 11:16] VITALS: BMI 28.9
== END 2024-05-26 11:54 | disposition home or self-care (01) ==
PROVIDERS: PCP Internal Medicine; Visit Provider Orthopaedic Surgery
DX: M67.911 Unspecified disorder of synovium and tendon, right shoulder (principal)
CPT/HCPCS: 20610; 99213

== ENCOUNTER → 2024-05-26 11:08 | Outpatient (BNVA) | payer MEDICARE, SELFPAY | PROVIDERS: PCP Internal Medicine; Visit Provider Orthopaedic Surgery | DX: M67.911 Unspecified disorder of synovium and tendon, right shoulder (principal) | CPT/HCPCS: 20610; 99212; J0665; J1100 ==

== ENCOUNTER 2024-09-15 15:22 | Emergency (ER) | payer MEDICARE, SELFPAY ==
--- NOTE | ~2024-09-15 | XR_ITS ---
EXAMINATION: XR CHEST CLINICAL INFORMATION: cough COMPARISON: 11/16/2023 TECHNIQUE: 2 views of the chest were obtained. FINDINGS: No focal consolidation, pulmonary edema, or pleural effusion. Stable cardiomediastinal silhouette. XR/XR chest 2V IMPRESSION: No acute cardiopulmonary findings. Electronically signed by: Stone Sanford MD 09/15/2024 05:54 PM [facility] [place]
[2024-09-15 15:27] VITALS: BP 179/80; PULSE 72; RESP 18; TEMP 36.5; O2SAT 96; BMI 30.3
--- NOTE | 2024-09-15 15:30 | ED_ITS ---
HPI - Fever General Chief Complaint: Upper Respiratory Symptoms Stated Complaint: fever,congested cough Time Seen by Provider: 09/15/24 17:22 Source: patient Mode of arrival: ambulatory Limitations: no limitations History of Present Illness ED Provider: Chuck BILLY HPI Narrative: 69-year-old female history of tendinitis, and rotator cuff injury presents to ED for coughing, subjective fevers, body aches, and sinus congestion. Patient denies any shortness of breath, chest pain, coughing up blood, leg swelling, calf pain, or pleurisy Related Data Home Medications ?Medication ?Instructions ?Recorded ?Confirmed amlodipine 5 mg tablet 1 tab PO DAILY 10/04/22 10/04/22 levothyroxine 88 mcg tablet 1 tab PO DAILY 10/04/22 10/04/22 lisinopril 40 mg tablet 1 tab PO DAILY 10/04/22 10/04/22 metoprolol tartrate 50 mg tablet 1 tab PO BID 10/04/22 10/04/22 omeprazole 40 mg capsule,delayed 1 cap PO BID 10/04/22 10/04/22 release Previous Rx's ?Medication ?Instructions ?Recorded albuterol sulfate 90 mcg/actuation 1 inh inhalation Q4-6H PRN 10/07/22 breath activated powder inhaler shortness of breath or wheezing #1 ea azithromycin 500 mg tablet 500 mg PO DAILY 3 days #3 tabs 10/07/22 iqtdgxtwnv-kvoglbimmfhoy-cchyhqjm 1 tab PO Q4H PRN Migraine Headache 10/07/22 50 mg-325 mg-40 mg tablet #12 tabs dextromethorphan-guaifenesin 10 5 ml PO Q6H PRN Cough #237 mL 10/07/22 mg-100 mg/5 mL oral syrup guaifenesin 600 mg tablet, 600 mg PO BID #9 tabs 10/07/22 extended release 12 hr (Mucinex) ipratropium 0.5 mg-albuterol 3 mg 3 ml inhalation Q4H PRN Shortness 10/07/22 (2.5 mg base)/3 mL nebulization Of Breath/Wheezing #90 mL soln prednisone 10 mg tablet 40 mg (4 x 10 mg) PO DAILY #4 tabs 10/07/22 albuterol sulfate 90 mcg/actuation 2 puff inhalation Q4-6H PRN 11/16/23 aerosol inhaler shortness of breath or wheezing #6.7 grams benzonatate 100 mg capsule 100 mg PO TID PRN cough #14 caps 11/16/23 prednisone 20 mg tablet 40 mg (2 x 20 mg) PO DAILY 5 days 11/16/23 #10 tabs dicyclomine 10 mg capsule 10 mg PO TID #20 caps 03/24/24 lorazepam 1 mg tablet (Ativan) 1 mg PO BID PRN anxiety #20 tabs 03/24/24 benzonatate 100 mg capsule 100 mg PO TID PRN cough 5 days #15 09/15/24 caps doxycycline hyclate 100 mg capsule 100 mg PO BID 7 days #14 caps 09/15/24 fluticasone propionate 50 2 spray intranasal DAILY 5 days 09/15/24 mcg/actuation nasal #16 grams spray,suspension (Flonase Allergy Relief) Allergies Allergy/AdvReac Type Severity Reaction Status Date / Time honey [HONEY] Allergy Severe RASH Verified 09/15/24 15:29 morphine [Morphine] Allergy Severe ITCHING, Verified 09/15/24 15:29 INCREASE ANXIETY, HALLUCINATION oxycodone [OXYCODONE] Allergy Intermediate ITCHING, Verified 09/15/24 15:29 INCREASE ANXIETY. amoxicillin [Amoxicillin] Allergy Mild SWELLING Verified 09/15/24 15:29 milk [Milk] AdvReac Mild DIARRHEA, Verified 09/15/24 15:29 ABDOMINAL PAIN (REGULAR MILK ONLY) Review of Systems 2 Review of Systems: Coughing, subjective fevers, body aches, sinus congestion Yes all other systems are reviewed and are negative PMFSH Past Medical History Medical History Colitis Asthma Hypertension Adult hypothyroidism Surgical History H/O section History of appendectomy History of cholecystectomy H/O: hysterectomy Family History Family History Other No family history of coronary artery disease Social History Social History (System 01/05/24 @ 10:56 by Ludmila [place]) Household Members: None Housing: House Do you presently have visiting nurse or other home services: No Patient Tobacco Use Status: Never used Tobacco Advance Directives: No Advance Directives Information Provided: Yes service: No Current occupational status: employed Physical Exam 2 Vital Signs: Vital Signs: Last Vital Signs Temp 97.7 F 09/15/24 19:37 Pulse 72 09/15/24 19:37 Resp 18 09/15/24 19:37 BP 179/80 H 09/15/24 19:37 Pulse Ox 96 09/15/24 19:37 O2 Del Method Room Air 09/15/24 19:37 BMI result Body Mass Index 30.3 Const: General: cooperative, healthy appearing, comfortable, no acute distress, well developed, alert, awake and Physically active O rientation/consciousness: patient oriented x3 HEENT: Head: Yes normal to inspection, Yes No palpable skull fracture present, Yes normocephalic and Yes atraumatic Ears: hearing grossly normal bilaterally, external ears normal, TM's normal bilaterally, TM normal on the right, TM normal on the left, EAC's normal, mastoids normal and no periauricular adenopathy Face and sinus: Yes sinus tenderness (maxillary sinus tenderness on palpation) Throat: Yes posterior oropharynx normal, Yes tonsils normal and Yes uvula midline Eyes: General: appearance normal, both eyes and all related structures Neck: Neck: Yes normal visual inspection, Yes full ROM, Yes no lymphadenopathy, Yes no meningeal signs, Yes trachea midline, Yes supple, No anterior neck swelling and No tender Chest: Chest palpation & inspection: normal inspection of the chest and normal palpation of entire chest wall Cardio: Jugular venous distension: no JVD Heart sounds: S1 normal heart sound present and S2 normal heart sound present GI: Inspection: Yes normal to inspection Palpation (GI): Soft to palpation, not firm, nontender, no guarding and not rigid : General: Yes no CVA tenderness Back/Spine/Pelvis: Back: no CVA tenderness and No back tenderness Skin: General skin exam: no rashes or lesions noted, elasticity normal and turgor normal Neuro: General: patient oriented x3, gait normal, tone normal, moves all extremities, Normal light touch and pain sensation, no meningeal signs, no focal motor deficits, CN's II-XI intact bilaterally and normal sensation to monofilament Extrem: General: Yes normal to inspection and Yes full ROM Psych: Appearance: grossly normal, well kempt and not disheveled Course Course Course Narrative: This is a rapid medical exam performed by Tamra Ward PA-C. The patient is a 69-year-old female with a history of arthritis who presents with cough and cold symptoms x6 days. Associated dry cough, nasal congestion, frontal headache, generalized myalgias. Subjective fevers at home. Denies sick contacts with same symptoms. On exam, patient's lungs are clear to auscultation, she is hemodynamically stable and can return to the weight room pending her full medical assessment. We will screen basic labs a viral panel and a chest x-ray. Medical Decision Making Medical Decision Making [facility] Narrative: 69-year-old female with pmh of seasonal allergies, and rotator cuff tendinitis injury presents to ED for URI symptoms consisted of sinus pain, coughing up yellow phlegm, body aches, subjective fever, and chills. Patient denies any chest pain or shortness of breath. Lungs are clear. Positive for sinus tenderness on palpation. Chest x-ray negative pneumonia. SARs strep COVID influenza negative. Labs are normal. Not suspecting pericarditis, myocarditis, myocardial infarction, CHF, PE, cardiac tamponade, or any other life- threatening etiology. Patient explained worrisome signs and informed to return to the ED immediately. Differential Diagnosis Differential Diagnoses: The differential diagnosis associated with the presentation includes (COVID, influenza, RSV, pneumonia) Admission/Observation Consideration of admission/observation: Escalation of care including admission/observation considered Lab Data [facility] Lab Attestation statement: I reviewed the patient's lab results. 09/15/24 16:02 09/15/24 16:02 Labs: Lab Results 09/15/24 09/15/24 Range/Units 16:01 16:02 WBC 9.5 (4.8-10.8) X10*3/uL RBC 4.51 (4.20-5.50) X10*6/uL Hgb 13.5 (12.0-16.0) g/dl Hct 40.9 (37.0-47.0) % MCV 90.7 (80.0-98.0) fL MCH 29.9 (27.0-33.0) pg MCHC 33.0 (31.0-35.0) g/dl RDW 12.4 (11.0-16.0) % Plt Count 250 (160-400) X10*3/uL MPV 12.0 (9.4-12.3) fL Immature Gran % (Auto) 0.3 (0.0-0.4) % Neut % (Auto) 69.0 (45-73) % Lymph % (Auto) 19.3 L (20-40) % Ida % (Auto) 7.8 (2-11) % Eos % (Auto) 3.2 (0-4) % Baso % (Auto) 0.4 (0-2) % Lymph # (Auto) 1.8 (1.2-4.9) X10*3/uL Ida # (Auto) 0.7 (0.1-1.2) X10*3/uL Eos # (Auto) 0.3 (0.0-0.4) X10*3/uL Baso # (Auto) 0.0 (0.0-0.2) X10*3/uL Abs Immat Gran (auto) 0.03 (0.00-0.03) X10*3/uL Absolute Neuts (auto) 6.5 (2.0-8.3) x10*3/uL Absolute Nucleated RBC 0.000 (0.0-0.012) X10*3/uL Nucleated RBC % (auto) 0.0 (0.0-0.2) /100WBC Sodium 141 (135-145) mmol/L Potassium 3.9 (3.3-5.1) mmol/L Chloride 108 (96-108) mmol/L Carbon Dioxide 26 (22-29) mmol/L Anion Gap 11 L (12-20) BUN 20 H (9-16) mg/dL Creatinine 0.82 (0.5-1.4) mg/dL Estim Creat Clear Calc 52.7 Estimated GFR > 60 Random Glucose 141 H (60-115) mg/dL Calcium 9.9 D (8.4-10.2) mg/dL Magnesium 2.0 (1.6-2.6) mg/dL Total Bilirubin 0.4 (0.0-1.0) mg/dL AST 50 H (5-31) U/L ALT 40 H (0-31) U/L Alkaline Phosphatase 115 (39-117) U/L Total Protein 7.5 (6.5-8.0) g/dL Albumin 3.7 (3.5-5.0) g/dL Influenza Type A (PCR) NEGATIVE (Negative) Influenza Type B (PCR) NEGATIVE (Negative) RSV RNA Qual (PCR) NEGATIVE (Negative) SARS-CoV-2 RNA (RT-PCR) NEGATIVE (Negative) Independent Interpretation I performed an independent interpretation of an: Plain X-Ray Radiology Impression Discussion of test interpretation with radiology: I have reviewed the radiologist's reading. Independent Historian Clinical information obtained from an independent historian. History obtained from or confirmed by: Other (patient) External Record Review External record reviewed: Other (prior visits) Prescription Management I considered prescription management with: Antibiotic Discharge Plan Discharge Clinical Impression: Sinusitis, acute, Upper respiratory infection Patient Disposition: Home, Self-Care Instructions: Sinusitis (ED), Upper Respiratory Infection (ED) Additional Instructions: Recommend follow-up with primary care provider. Return to the ED immediately for any chest pain, shortness of breath, coughing up blood, weakness, dizziness, severe headache, neck stiffness, rash, or any other concerning symptoms. Prescriptions: New doxycycline hyclate 100 mg capsule 100 mg PO BID 7 Days Qty: 14 0RF fluticasone propionate [Flonase Allergy Relief] 50 mcg/actuation spray,suspension 2 spray intranasal DAILY 5 Days Qty: 16 0RF Rx Instructions: administer into each nostril benzonatate 100 mg capsule 100 mg PO TID PRN (Reason: cough) 5 Days Qty: 15 0RF No Action omeprazole 40 mg capsule,delayed release(DR/EC) 1 cap PO BID levothyroxine 88 mcg tablet 1 tab PO DAILY amlodipine 5 mg tablet 1 tab PO DAILY metoprolol tartrate 50 mg tablet 1 tab PO BID lisinopril 40 mg tablet 1 tab PO DAILY dextromethorphan-guaifenesin 10-100 mg/5 mL Syrup 5 ml PO Q6H PRN (Reason: Cough) Qty: 237 0RF guaifenesin [Mucinex] 600 mg Tablet Extended Release 12hr 600 mg PO BID Qty: 9 0RF prednisone 10 mg tablet 40 mg PO DAILY Qty: 4 0RF azithromycin 500 mg tablet 500 mg PO DAILY 3 Days Qty: 3 0RF knusinnghj-dlunysgslszpj-egtc 50-325-40 mg Tablet 1 tab PO Q4H PRN (Reason: Migraine Headache) Qty: 12 0RF ipratropium-albuterol 0.5 mg-3 mg(2.5 mg base)/3 mL Solution For Nebulization 3 ml inhalation Q4H PRN (Reason: Shortness Of Breath/Wheezing) Qty: 90 0RF albuterol sulfate 90 mcg/actuation aerosol powdr breath activated 1 inh inhalation Q4-6H PRN (Reason: shortness of breath or wheezing) Qty: 1 0RF prednisone 20 mg tablet 40 mg PO DAILY 5 Days Qty: 10 0RF benzonatate 100 mg capsule 100 mg PO TID PRN (Reason: cough) Qty: 14 0RF albuterol sulfate 90 mcg/actuation HFA aerosol inhaler 2 puff inhalation Q4-6H PRN (Reason: shortness of breath or wheezing) Qty: 6.7 0RF dicyclomine 10 mg capsule 10 mg PO TID Qty: 20 0RF lorazepam [Ativan] 1 mg tablet 1 mg PO BID PRN (Reason: anxiety) Qty: 20 0RF Stand Alone Forms: Work/School Release Interventions: ED Discharge Assessment Last Done: 09/15/24 19:37 Discharge Date/Time: 09/15/24 19:38 Print Language: Burundian
[2024-09-15 16:06] LABS: MANUAL DIFF FLAG NO
[2024-09-15 16:15] LABS: Basophils Percent Auto 0.4 % (0-2); Eosinophils Absolute Auto 0.3 X10*3/uL (0.0-0.4); Eosinophils Percent Auto 3.2 % (0-4); Hematocrit 40.9 % (37.0-47.0); Hemoglobin 13.5 g/dl (12.0-16.0); Imm Gran Abs Auto 0.03 X10*3/uL (0.00-0.03); Imm Gran Pct Auto 0.3 % (0.0-0.4); Lymphocytes Absolute Auto 1.8 X10*3/uL (1.2-4.9); Lymphocytes Percent Auto 19.3 % (20-40); Mean Corpuscular Hemoglobin 29.9 pg (27.0-33.0); Mean Corpuscular Volume 90.7 fL (80.0-98.0); Monocytes Absolute Auto 0.7 X10*3/uL (0.1-1.2); Monocytes Percent Auto 7.8 % (2-11); Neutrophils Absolute Auto 6.5 x10*3/uL (2.0-8.3); Platelet Count 250 X10*3/uL (160-400); Red Blood Count 4.51 X10*6/uL (4.20-5.50); Red Cell Distribution Width 12.4 % (11.0-16.0); White Blood Count 9.5 X10*3/uL (4.8-10.8)
[2024-09-15 16:21] LABS: Alanine Aminotransferase 40 U/L (0-31); Albumin Level 3.7 g/dL (3.5-5.0); Alkaline Phosphatase 115 U/L (39-117); Anion Gap 11 (12-20); Aspartate Amino Transferase 50 U/L (5-31); Bilirubin Total 0.4 mg/dL (0.0-1.0); Blood Urea Nitrogen 20 mg/dL (9-16); Calcium 9.9 mg/dL (8.4-10.2); Carbon Dioxide 26 mmol/L (22-29); Chloride 108 mmol/L (96-108); Creatinine Clr Calc Pharmacy 52.7; Estimated Glomerular Filt Rate > 60; Glucose Random 141 mg/dL (60-115); Potassium 3.9 mmol/L (3.3-5.1); Sodium 141 mmol/L (135-145); Total Protein 7.5 g/dL (6.5-8.0)
[2024-09-15 16:44] LABS: Influenza A PCR NEGATIVE (Negative); Influenza B PCR NEGATIVE (Negative); Resp Syncy Virus RNA Qual PCR NEGATIVE (Negative); SARS COV2 PCR INHOUSE NEGATIVE (Negative)
[2024-09-15 19:37] VITALS: BP 179/80; PULSE 72; RESP 18; TEMP 36.5; O2SAT 96
== END 2024-09-15 19:38 | disposition home or self-care (01) ==
PROVIDERS: Physician Assistant Medical; Emergency Provider Emergency Medicine; PCP Internal Medicine
DX: J01.90 Acute sinusitis, unspecified (principal); J06.9 Acute upper respiratory infection, unspecified; Z03.818 Encounter for observation for suspected exposure to other biological agents ruled out; J45.909 Unspecified asthma, uncomplicated; I10 Essential (primary) hypertension
CPT/HCPCS: 0241U; 36415; 71046; 80053; 83735; 85025; 99282; 99283

== ENCOUNTER 2024-09-26 00:23 | Emergency (ER) | payer MEDICARE, SELFPAY ==
[2024-09-26 00:27] VITALS: BP 179/101; PULSE 90; O2SAT 95
[2024-09-26 00:31] VITALS: BMI 30.7
[2024-09-26 00:40] VITALS: BP 170/59; PULSE 91; RESP 18; TEMP 36.8; O2SAT 97
[2024-09-26 00:53] LABS: Hemoglobin 13.5 g/dl (12.0-16.0); Mean Corpuscular HGB Conc 33.8 g/dl (31.0-35.0); Mean Corpuscular Volume 88.9 fL (80.0-98.0); Mean Platelet Volume 11.2 fL (9.4-12.3); Platelet Count 280 X10*3/uL (160-400); White Blood Count 9.4 X10*3/uL (4.8-10.8)
[2024-09-26 01:14] LABS: Albumin Level 3.9 g/dL (3.5-5.0); Anion Gap 14 (12-20); Aspartate Amino Transferase 43 U/L (5-31); Bilirubin Total 0.3 mg/dL (0.0-1.0); Blood Urea Nitrogen 18 mg/dL (9-16); Calcium 9.6 mg/dL (8.4-10.2); Carbon Dioxide 26 mmol/L (22-29); Chloride 105 mmol/L (96-108); Creatinine Clr Calc Pharmacy 54.7; Estimated Glomerular Filt Rate > 60; Glucose Random 172 mg/dL (60-115); Potassium 3.2 mmol/L (3.3-5.1); Sodium 142 mmol/L (135-145); Total Protein 7.7 g/dL (6.5-8.0)
[2024-09-26 01:29] LABS: Influenza A PCR NEGATIVE (Negative); Influenza B PCR NEGATIVE (Negative); Resp Syncy Virus RNA Qual PCR NEGATIVE (Negative); SARS COV2 PCR INHOUSE NEGATIVE (Negative)
[2024-09-26 01:56] VITALS: BP 140/54; PULSE 70; RESP 16; TEMP 36.9; O2SAT 94
--- NOTE | 2024-09-26 02:17 | ED_ITS ---
HPI - General Adult General Chief complaint: General Medical Stated complaint: Flu-like x2 weeks getting worse Time Seen by Provider: 09/26/24 02:01 Source: patient and family Mode of arrival: ambulatory History of Present Illness ED Provider: Dr. Rosa Isela Rain HPI narrative: Patient comes to the emergency room complaining of not feeling well for 2 weeks. Patient is currently taking doxycycline for sinusitis. Patient complaining of nausea vomiting a few times tonight. Patient denies any abdominal pain. Related Data Home Medications ?Medication ?Instructions ?Recorded ?Confirmed amlodipine 5 mg tablet 1 tab PO DAILY 10/04/22 10/04/22 levothyroxine 88 mcg tablet 1 tab PO DAILY 10/04/22 10/04/22 lisinopril 40 mg tablet 1 tab PO DAILY 10/04/22 10/04/22 metoprolol tartrate 50 mg tablet 1 tab PO BID 10/04/22 10/04/22 omeprazole 40 mg capsule,delayed 1 cap PO BID 10/04/22 10/04/22 release Previous Rx's ?Medication ?Instructions ?Recorded albuterol sulfate 90 mcg/actuation 1 inh inhalation Q4-6H PRN 10/07/22 breath activated powder inhaler shortness of breath or wheezing #1 ea azithromycin 500 mg tablet 500 mg PO DAILY 3 days #3 tabs 10/07/22 seaarlunfv-inlyiwjfsvwuy-oahldjqw 1 tab PO Q4H PRN Migraine Headache 10/07/22 50 mg-325 mg-40 mg tablet #12 tabs dextromethorphan-guaifenesin 10 5 ml PO Q6H PRN Cough #237 mL 10/07/22 mg-100 mg/5 mL oral syrup guaifenesin 600 mg tablet, 600 mg PO BID #9 tabs 10/07/22 extended release 12 hr (Mucinex) ipratropium 0.5 mg-albuterol 3 mg 3 ml inhalation Q4H PRN Shortness 10/07/22 (2.5 mg base)/3 mL nebulization Of Breath/Wheezing #90 mL soln prednisone 10 mg tablet 40 mg (4 x 10 mg) PO DAILY #4 tabs 10/07/22 albuterol sulfate 90 mcg/actuation 2 puff inhalation Q4-6H PRN 11/16/23 aerosol inhaler shortness of breath or wheezing #6.7 grams benzonatate 100 mg capsule 100 mg PO TID PRN cough #14 caps 11/16/23 prednisone 20 mg tablet 40 mg (2 x 20 mg) PO DAILY 5 days 11/16/23 #10 tabs dicyclomine 10 mg capsule 10 mg PO TID #20 caps 03/24/24 lorazepam 1 mg tablet (Ativan) 1 mg PO BID PRN anxiety #20 tabs 03/24/24 benzonatate 100 mg capsule 100 mg PO TID PRN cough 5 days #15 09/15/24 caps doxycycline hyclate 100 mg capsule 100 mg PO BID 7 days #14 caps 09/15/24 fluticasone propionate 50 2 spray intranasal DAILY 5 days 09/15/24 mcg/actuation nasal #16 grams spray,suspension (Flonase Allergy Relief) loperamide 2 mg tablet 2 mg PO Q4H PRN loose stool #14 09/26/24 tabs ondansetron 4 mg disintegrating 4 mg PO Q6H PRN nausea and 09/26/24 tablet vomiting #14 tabs Allergies Allergy/AdvReac Type Severity Reaction Status Date / Time honey [HONEY] Allergy Severe RASH Verified 09/26/24 00:32 morphine [Morphine] Allergy Severe ITCHING, Verified 09/26/24 00:32 INCREASE ANXIETY, HALLUCINATION oxycodone [OXYCODONE] Allergy Intermediate ITCHING, Verified 09/26/24 00:32 INCREASE ANXIETY. amoxicillin [Amoxicillin] Allergy Mild SWELLING Verified 09/26/24 00:32 milk [Milk] AdvReac Mild DIARRHEA, Verified 09/26/24 00:32 ABDOMINAL PAIN (REGULAR MILK ONLY) Review of Systems 2 Review of Systems: Constitutional : No Weight loss, No Fever, No Chills, No Night Sweats, No Fatigue, No Malaise ENT/Mouth : No Hearing loss, No Ear Pain, No Nasal Congestion, complaining of Sinus Pain, No Hoarseness, No sore throat, No Rhinorrhea, No Swallowing Difficulty Eyes: No Eye Pain, No Swelling, No Redness, No Foreign Body, No Discharge, No Vision Changes Cardiovascular : No Chest Pain, No SOB, No Dyspnea on Exertion, No Orthopnea, No Edema, No Palpitations Respiratory : No Cough, No Sputum, No Wheezing, No Smoke Exposure, No Dyspnea Gastrointestinal : Complaining of a few episodes of nausea vomiting diarrhea No Constipation, No abdominal Pain, No Hematochezia, No Melena Genitourinary : no irregular bleeding, No Dysuria, No Urinary Frequency, No Hematuria, No Urinary Incontinence, No Urgency, No Flank Pain, No Urinary Flow Changes, No Hesitancy Musculoskeletal : No joint pain, No Myalgias, No Joint Swelling Skin : No Skin Lesions, No rash Neuro : No Weakness, No Numbness, No Paresthesias, No Loss of Consciousness, No Dizziness, No Headache Psych : No Anxiety/Panic, No Depression, No SI/HI/AH/VH, No Social Issues, Heme/Lymph: No Bruising, No Bleeding,No Lymphadenopathy Endocrine : No Polyuria, No Polydipsia, No Temperature Intolerance [facility] Past Medical History Medical History Colitis Asthma Hypertension Adult hypothyroidism Surgical History H/O section History of appendectomy History of cholecystectomy H/O: hysterectomy Family History Family History Other No family history of coronary artery disease Social History Social History (System 01/05/24 @ 10:56 by Ludmila [place]) Household Members: None Housing: House Do you presently have visiting nurse or other home services: No Patient Tobacco Use Status: Never used Tobacco Smoked in Last 30 Days: No Use of substances other than those prescribed or required for medical reasons: No Advance Directives: No Advance Directives Information Provided: Yes Do you have a plan to hurt others: No Plan service: No Current occupational status: employed Physical Exam ED Vital Signs: Vital Signs - 24 hr 09/26/24 00:31 09/26/24 00:40 09/26/24 01:56 Temperature 98.2 F 98.4 F Pulse Rate 91 70 Respiratory Rate 18 16 Blood Pressure 170/59 H 140/54 H Pulse Oximetry 97 94 Oxygen Delivery Method Room Air Room Air Room Air BMI result Body Mass Index 30.7 Const Other: Appearance: Alert. Oriented X3. No acute distress. Eyes: Pupils equal, round and reactive to light. ENT: Pharynx normal. Neck: Normal inspection. Neck supple. No lymph nodes noted. No crepitus CVS: Normal heart rate and rhythm. Pulses normal. Normal S1 and S2 Respiratory: No respiratory distress. Breath sounds normal. No Wheezing. No rales Abdomen: Soft and nontender. No rigidity. No distention. Skin: Skin warm and dry. Normal skin color. Normal skin turgor. Extremities: No lower extremity edema. No Lacerations. No Rash Neuro: Oriented X 3. No motor deficit. No sensory deficit. Moving all extremities. No slurred speech. CN 2 through 12 grossly intact Psych: calm, cooperative, normal affect Medical Decision Making Medical Decision Making [facility] Narrative: My interpretation of labs: Patient's hematology within normal limits, chemistry shows a potassium of 3.2 which was repleted p.o. serology negative for influenza RSV and COVID Patient is still has a few more days of antibiotics, discussed with the patient to continue her course of antibiotics. Patient does not seem dehydrated, patient was given Zofran prior to arrival. Patient's vitals stable, blood pressure 140/54, heart rate 50, respirations 16, oxygen saturation 94% on room air. Differential Diagnosis Differential Diagnoses: The differential diagnosis associated with the presentation includes (Viral illness) Lab Data [facility] Lab Attestation statement: I reviewed the patient's lab results. 09/26/24 00:48 09/26/24 00:48 Labs: Lab Results 09/26/24 Range/Units 00:48 WBC 9.4 (4.8-10.8) X10*3/uL RBC 4.50 (4.20-5.50) X10*6/uL Hgb 13.5 (12.0-16.0) g/dl Hct 40.0 (37.0-47.0) % MCV 88.9 (80.0-98.0) fL MCH 30.0 (27.0-33.0) pg MCHC 33.8 (31.0-35.0) g/dl RDW 12.0 (11.0-16.0) % Plt Count 280 (160-400) X10*3/uL MPV 11.2 (9.4-12.3) fL Absolute Nucleated RBC 0.000 (0.0-0.012) X10*3/uL Nucleated RBC % (auto) 0.0 (0.0-0.2) /100WBC Sodium 142 (135-145) mmol/L Potassium 3.2 L (3.3-5.1) mmol/L Chloride 105 (96-108) mmol/L Carbon Dioxide 26 (22-29) mmol/L Anion Gap 14 (12-20) BUN 18 H (9-16) mg/dL Creatinine 0.83 (0.5-1.4) mg/dL Estim Creat Clear Calc 54.7 Estimated GFR > 60 Random Glucose 172 H (60-115) mg/dL Calcium 9.6 (8.4-10.2) mg/dL Total Bilirubin 0.3 (0.0-1.0) mg/dL AST 43 H (5-31) U/L Total Protein 7.7 (6.5-8.0) g/dL Albumin 3.9 (3.5-5.0) g/dL Influenza Type A (PCR) NEGATIVE (Negative) Influenza Type B (PCR) NEGATIVE (Negative) RSV RNA Qual (PCR) NEGATIVE (Negative) SARS-CoV-2 RNA (RT-PCR) NEGATIVE (Negative) Discharge Plan Discharge Clinical Impression: Viral illness, Acute hypokalemia, Nausea vomiting and diarrhea Patient Disposition: Home, Self-Care Instructions: Hypokalemia (ED), Acute Nausea and Vomiting (ED), Acute Diarrhea (ED), Viral Syndrome (ED) Additional Instructions: Please make sure that you finish her entire course of antibiotics. Please follow-up with your primary care physician tomorrow. If you have any worsening or new symptoms, please return to the emergency room or call 911 Prescriptions: New ondansetron 4 mg tablet,disintegrating 4 mg PO Q6H PRN (Reason: nausea and vomiting) Qty: 14 0RF loperamide 2 mg tablet 2 mg PO Q4H PRN (Reason: loose stool) Qty: 14 0RF Rx Instructions: administer after each loose stool until symptoms controlled; do not exceed 8 mg per 24 hrs No Action omeprazole 40 mg capsule,delayed release(DR/EC) 1 cap PO BID levothyroxine 88 mcg tablet 1 tab PO DAILY amlodipine 5 mg tablet 1 tab PO DAILY metoprolol tartrate 50 mg tablet 1 tab PO BID lisinopril 40 mg tablet 1 tab PO DAILY dextromethorphan-guaifenesin 10-100 mg/5 mL Syrup 5 ml PO Q6H PRN (Reason: Cough) Qty: 237 0RF guaifenesin [Mucinex] 600 mg Tablet Extended Release 12hr 600 mg PO BID Qty: 9 0RF prednisone 10 mg tablet 40 mg PO DAILY Qty: 4 0RF azithromycin 500 mg tablet 500 mg PO DAILY 3 Days Qty: 3 0RF guzoqphike-lnfstushxwelh-hrph 50-325-40 mg Tablet 1 tab PO Q4H PRN (Reason: Migraine Headache) Qty: 12 0RF ipratropium-albuterol 0.5 mg-3 mg(2.5 mg base)/3 mL Solution For Nebulization 3 ml inhalation Q4H PRN (Reason: Shortness Of Breath/Wheezing) Qty: 90 0RF albuterol sulfate 90 mcg/actuation aerosol powdr breath activated 1 inh inhalation Q4-6H PRN (Reason: shortness of breath or wheezing) Qty: 1 0RF prednisone 20 mg tablet 40 mg PO DAILY 5 Days Qty: 10 0RF benzonatate 100 mg capsule 100 mg PO TID PRN (Reason: cough) Qty: 14 0RF albuterol sulfate 90 mcg/actuation HFA aerosol inhaler 2 puff inhalation Q4-6H PRN (Reason: shortness of breath or wheezing) Qty: 6.7 0RF doxycycline hyclate 100 mg capsule 100 mg PO BID 7 Days Qty: 14 0RF fluticasone propionate [Flonase Allergy Relief] 50 mcg/actuation spray,suspension 2 spray intranasal DAILY 5 Days Qty: 16 0RF Rx Instructions: administer into each nostril benzonatate 100 mg capsule 100 mg PO TID PRN (Reason: cough) 5 Days Qty: 15 0RF dicyclomine 10 mg capsule 10 mg PO TID Qty: 20 0RF lorazepam [Ativan] 1 mg tablet 1 mg PO BID PRN (Reason: anxiety) Qty: 20 0RF Print Language: Filipino
[2024-09-26 02:27] LABS: Alanine Aminotransferase 35 U/L (0-31); Alkaline Phosphatase 120 U/L (39-117)
[2024-09-26] MEDS: ondansetron HCL 4 MG/2 ML VIAL IVPUSH (02:36)
[2024-09-26] MEDS: Potassium Chloride Packet 20 MEQ PACKET 40 MEQ PO (02:36)
[2024-09-26 02:48] VITALS: BP 140/54; PULSE 70; RESP 16; TEMP 36.9; O2SAT 94
== END 2024-09-26 02:50 | disposition home or self-care (01) ==
PROVIDERS: Emergency Provider Emergency Medicine; PCP Internal Medicine
DX: B34.9 Viral infection, unspecified (principal); E87.6 Hypokalemia; R11.2 Nausea with vomiting, unspecified; R19.7 Diarrhea, unspecified; Z03.818 Encounter for observation for suspected exposure to other biological agents ruled out; J45.909 Unspecified asthma, uncomplicated
CPT/HCPCS: 0241U; 36415; 80053; 85027; 96374; 99284; J2405

== ENCOUNTER 2025-01-16 12:21 | Outpatient (AMB) | payer MEDICARE, SELFPAY ==
--- NOTE | 2025-01-16 12:23 | MHC.OFFVIS ---
Intake Visit Reasons: Inj-B/L shoulder injection-last inj-05/26/24 Intake Note: Reyna is a 69 year old right hand dominant female who presents today for a follow up of her bilateral shoulders pain and bilateral shoulder injection. The last injection was administered on 05/26/24 of her right shoulder. Patient reports continued relief and would like to repeat today. Patient reports her symptoms have been exacerbating. She expresses difficulty with sleeping, lifting, raising arms above head, cooking, cleaning and other daily ADLs. Patient states she is usually very active however she has not been able to due to her pains worsening. Ibuprofen does not give adequate relief. Allergies honey [HONEY] Allergy (Severe, Verified 01/16/25 12:28) RASH morphine [Morphine] Allergy (Severe, Verified 01/16/25 12:28) ITCHING, INCREASE ANXIETY, HALLUCINATION oxycodone [OXYCODONE] Allergy (Intermediate, Verified 01/16/25 12:28) ITCHING, INCREASE ANXIETY. amoxicillin [Amoxicillin] Allergy (Mild, Verified 01/16/25 12:28) SWELLING milk [Milk] Adverse Reaction (Mild, Verified 01/16/25 12:28) DIARRHEA, ABDOMINAL PAIN (REGULAR MILK ONLY) HPI HPI Inj-B/L shoulder injection-last inj-05/26/24: Details: Reyna is a 69 year old right hand dominant female who presents today for a follow up of her bilateral shoulders pain and bilateral shoulder injection. The last injection was administered on 05/26/24 of her right shoulder. Patient reports continued relief and would like to repeat today. Patient reports her symptoms have been exacerbating. She expresses difficulty with sleeping, lifting, raising arms above head, cooking, cleaning and other daily ADLs. Patient states she is usually very active however she has not been able to due to her pains worsening. Ibuprofen does not give adequate relief. [facility] Medical History Colitis Asthma Hypertension Adult hypothyroidism Surgical History H/O section History of appendectomy History of cholecystectomy H/O: hysterectomy Family History Other No family history of coronary artery disease Social History Household Members: None Housing: House Do you presently have visiting nurse or other home services: No Patient Tobacco Use Status: Never used Tobacco service: No Current occupational status: employed Physical Exam Extrem Other: 35/90/140/L5 bilaterally. Negative empty can although accurate assessment difficult secondary to pain. Positive [facility] Procedures Joint Inj/Aspir; Non-Pain Clin Joint Injection/Drain Details: Injected 1 mL of Decadron and 3 mL 1% lidocaine and 3 mL of 0.25% Marcaine. Site was prepped using aseptic technique. Patient tolerated the procedure well. Shoulders, Hips, Knees, Shoulder Injection Large joint : Bilateral Shoulders Coding Procedure code (CPT) selection complete Assessment & Plan Assessment & Plan (1) Impingement syndrome of right shoulder: Code(s): M75.41 - Impingement syndrome of right shoulder Category: Medical Plan: Right shoulder impingement syndrome with MRI showing tendinosis and partial-thickness rotator cuff tear. Has not completed physical therapy yet. I injected bilateral shoulders today and we will see her back after PT (2) Calcific tendinitis of left shoulder: Code(s): M75.32 - Calcific tendinitis of left shoulder Category: Medical Plan: Left shoulder is less painful and has benefitted from activity modification and steroids but she has not done physical therapy yet either for this shoulder Coding Level of Care Code Est Pt Level 3 (85145) Complex EM visit Add On G2211 Diagnoses Impingement syndrome of right shoulder M75.41 Calcific tendinitis of left shoulder M75.32 CPT Codes Shoulders, Hips, Knees, - Shoulder Injection Large joint : Bilateral Shoulders ([id number])
--- OUTSIDE RECORDS SUMMARY | 2025-01-16 14:17 | XMS_ITS | Clinical Summary ---
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 Name Role Phone Unavailable Primary Care Provider Unavailabl e Social History Tobacco Use Types Packs/Day Years Used Date Smoking Tobacco: Never Assessed Comments Unknown Sex and Gender Information Value Date Recorded Sex Assigned at Not on file Legal Sex Female 5:37 AM EST Gender Identity Not on file Sexual Orientation Not on file Plan of Treatment Health Maintenance Due Date Last Done Comments Breast Cancer Screening 1955 DTaP,Tdap,and Td Vaccines (1 - Tdap) 1972 Pneumococcal Vaccine: 50+ Ye ars (1 of 1 - PCV) 2003 Zoster Vaccines (1 of 2) 2003 Colorectal Cancer Screening: Colonoscopy 09/07/2022 Depression Screening 09/07/2022 Falls Risk Assessment 09/07/2022 Hepatitis C Screening 09/07/2022 Osteoporosis Screening (Bone Density Screening) 09/07/2022 Social Influencers of Health Screening 09/07/2022 COVID-19 Vaccine ( - 2023-2 5 season) 2024 Influenza Vaccine (Season Ended) 2025 RSV Immunization Adult Patie nts (1 - 1-dose 75+ series) 2028 HIB Vaccines Aged Out No longer eligi ble based on patient's age to complete this topic HPV Vaccines Aged Out No longer eligi ble based on patient's age to complete this topic Hepatitis A Vaccines Aged Out No long er eligible based on patient's age to complete this topic Hepatitis B Vaccines Aged Out No long er eligible based on patient's age to complete this topic IPV Vaccines Aged Out No longer eligi ble based on patient's age to complete this topic MMR Vaccines Aged Out No longer eligi ble based on patient's age to complete this topic Meningococcal ACWY Vaccine Aged Out N o longer eligible based on patient's age to complete this topic Meningococcal B Vaccine Aged Out No l onger eligible based on patient's age to complete this topic RSV Immunization Patients Un riccardo 20 months Aged Out No longer eligible b ased on patient's age to complete this topic Varicella Vaccines Aged Out No longer eligible based on patient's age to complete this topic
== END 2025-01-16 12:47 | disposition home or self-care (01) ==
LOC: HO.HOS 12:21
PROVIDERS: PCP Internal Medicine; Visit Provider Orthopaedic Surgery
DX: M75.41 Impingement syndrome of right shoulder (principal); M75.32 Calcific tendinitis of left shoulder
CPT/HCPCS: 20610; 99213

== ENCOUNTER → 2025-01-16 12:21 | Outpatient (BNVA) | payer MEDICARE, SELFPAY | PROVIDERS: PCP Internal Medicine; Visit Provider Orthopaedic Surgery | DX: M75.41 Impingement syndrome of right shoulder (principal); M75.32 Calcific tendinitis of left shoulder; M25.512 Pain in left shoulder; M25.511 Pain in right shoulder | CPT/HCPCS: 20610; 99212; J0665; J1100; J2003 ==

== ENCOUNTER 2025-02-23 09:42 | Outpatient (RCR) | payer MEDICARE, SELFPAY ==
--- NOTE | 2025-02-03 11:27 | MHC.PT.EP ---
[facility] [place] [facility] [place] [facility] [place] [facility] [address] Jasvir Kruger [address] [place] [address] [phone] F: [phone] F: [phone] F: [phone] F: [phone] Physical Therapy Plan of Care Date of Evaluation: 02/03/25 Date of Surgery: Diagnosis: unspecified disorder of synovium and tendon, R shoulder calcific tendonitis L shoulder dysfunction of RTC R Assessment: 69 y/o R-hand dominant female referred to PT with unspecified disorder of synovium and tendon, R shoulder and calcific tendonitis L shoulder, dysfunction of RTC R. S/s consistent with B shoulder impingement and R shoulder RTC tear resulting in pain and difficulty with sleeping, grooming, cooking (lifting pots, stirring), mopping, driving, reaching and lifting. Examination shows decreased cervical AROM, decreased B shoulder A/PROM (R more limited than L), decreased B shoulder strength, and impaired functional mobility. Recommend PT 2x/week fro 6 weeks to address impairments, implement HEP, and optimize functional mobility. 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 Manual therapy to restore motion and function. Therapeutic exercise to improve strength and flexibility. Neuromuscular re-education for posture and balance. Therapeutic activities to return to functional activities of daily living. Electronically signed by: Zeenat Leigh PT Please sign and return to therapist. Thank you for your referral.
--- NOTE | 2025-03-06 10:39 | MHC.PT.DC ---
[facility] [place] [facility] [place] [facility] [place] [facility] [address] [phone] F: [phone] F: [phone] F: [phone] F: [phone] Physical Therapy Discharge Report Diagnosis: unspecified disorder of synovium and tendon, R shoulder calcific tendonitis L shoulder dysfunction of RTC R Date of Surgery: Date of Evaluation: 02/03/25 Date of Discharge: 03/06/25 Treatments to Date: 6 Cancellations to Date: 0 No Shows to Date: 0 Discharge Status: Independent with HEP Recommend MD Follow-up Discharge Summary: Pt with no change in sx throughout PT and at this time, recommend she f/u with MD d/t lack of progress and continued high pain levels. Electronically signed by: Zeenat Leigh PT Please sign and return to therapist. Thank you for your referral.
== END 2025-03-06 10:40 | disposition home or self-care (01) ==
LOC: HO.PT 09:42
PROVIDERS: PCP Internal Medicine; Visit Provider Orthopaedic Surgery
DX: M67.911 Unspecified disorder of synovium and tendon, right shoulder (principal); M75.32 Calcific tendinitis of left shoulder
CPT/HCPCS: 97110; 97140; 97162

== ENCOUNTER 2025-07-05 10:23 | Emergency (ER) | payer MEDICARE, SELFPAY ==
--- NOTE | ~2025-07-05 | CT_ITS ---
EXAMINATION: CT ABDOMEN AND PELVIS WITHOUT CONTRAST CLINICAL INFORMATION: Left lower quadrant pain, UTI, nausea and vomiting COMPARISON: March 23, 2024 TECHNIQUE: Multidetector volumetric imaging was performed from the superior aspect of the liver through the pubic symphysis. Sagittal and coronal reformatted images were obtained on the technologist's workstation. This CT examination was performed using dose optimization techniques as appropriate, variously including the following: *Automated exposure control *Adjustment of mA and/or kV according to patient size (this includes techniques or standardized protocols for targeted exams where dose is matched to indication/reason for exam; i.e. extremities or head) *Use of iterative reconstruction technique FINDINGS: LUNG BASES: The visualized lung bases are unremarkable. LIVER, GALLBLADDER, AND BILIARY TREE: The liver is normal in size, shape, and attenuation. No focal hepatic lesion or biliary ductal dilatation is present. The gallbladder surgically absent. There are clips in the gallbladder fossa. Extra hepatic bile duct is mildly prominent, similar to the prior. PANCREAS: Unremarkable. SPLEEN: Unremarkable. ADRENAL GLANDS: Unremarkable. KIDNEYS AND URETERS: The kidneys are normal in size, shape, and attenuation. No hydronephrosis, hydroureter, or calculi seen. No perinephric stranding. 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 This has been present since at least 2019. There is focal mural thickening on the right side of this cystic mass that was also present previously. It is difficult to determine with certainty whether or not the focal mural thickening has increased since the prior. GASTROINTESTINAL TRACT: Numerous pseudodiverticula are present in the descending and sigmoid colon. There is very mild fat stranding near the descending sigmoid colon junction, increased since the prior. The GI tract is otherwise unremarkable. ABDOMINAL WALL: No significant hernia is appreciated. LYMPH NODES: Again seen is a cystlike structure in the left inguinal canal measuring 1.2 x 2.2 cm, similar to the prior. It has been present since at least July 16, 2014. There are shotty periaortic nodes. VASCULAR: Unremarkable. PELVIC VISCERA: Hysterectomy has been performed. OSSEOUS STRUCTURES: Unremarkable. CT/CT abdomen pelvis wo IV con IMPRESSION: Suspected uncomplicated mild diverticulitis of the junction of descending and sigmoid colon. 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 It contains 3 stones, previously portions. Mural thickening on the right side appear stable to slightly increased. Developing neoplasm is not ruled in or ruled out. 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 Fleischner guidelines were followed. Electronically signed by: Jb Judge MD 07/05/2025 12:29 PM EDT
[2025-07-05 10:25] VITALS: BP 153/78; PULSE 71; RESP 18; TEMP 36.3; O2SAT 97; BMI 28.6
--- NOTE | 2025-07-05 10:25 | ED_ITS ---
HPI - Abdominal Pain General Chief Complaint: Urogenital-Female Stated Complaint: Fever 2 days, abd pain Time Seen by Provider: 07/05/25 10:43 Source: patient Mode of arrival: ambulatory Limitations: no limitations History of Present Illness ED Provider: JOANNA JOSE PA-C HPI narrative: 69 yo F with PMH significant for hypothyroidism, HTN, asthma, and colitis presents to the ED with concerns of UTI. She reports dysuria, nocturia, frequency, and urgency with associated suprapubic pain. reports subjective fever/chills. Has been taking Tylenol/Motrin regularly, last took this morning at 0600. Rates 1010 pain. Endorses remote history of kidney stones. Reports hx of appendectomy, cholecystectomy, and hysterectomy. She is not sexually active. Denies headache, N/V, flank or back pain, CP, SOB, saddle anesthesia, numbness/tingling. Related Data Home Medications ?Medication ?Instructions ?Recorded ?Confirmed amlodipine 5 mg tablet 1 tab PO DAILY 10/04/2209/06 levothyroxine 88 mcg tablet 1 tab PO DAILY 10/04/22 lisinopril 40 mg tablet 1 tab PO DAILY 10/04/2209/06 metoprolol tartrate 50 mg tablet 1 tab PO BID 10/04/22 10/04/22 omeprazole 40 mg capsule,delayed 1 cap PO BID 10/04/22 10/04/22 release Previous Rx's ?Medication ?Instructions ?Recorded albuterol sulfate 90 mcg/actuation 1 inh inhalation Q4 -6H PRN 10/07/22 breath activated powder inhaler shortness of breath or wheezing #1 ea azithromycin 500 mg tablet 500 mg PO DAILY 3 days #3 t abs 10/07/22 aygylzchwk-[id number]-jfcoefbs 1 tab PO Q4H PRN Dragan valentin Headache 10/07/22 50 mg-325 mg-40 mg tablet #12 tabs dextromethorphan-guaifenesin 10 5 ml PO Q6H PRN Cough #237 mL 10/07/22 mg-100 mg/5 mL oral syrup guaifenesin 600 mg tablet, 600 mg PO BID #9 tabs 10/07 extended release 12 hr (Mucinex) ipratropium 0.5 mg-albuterol 3 mg 3 ml inhalation Q4H PRN Shortness 10/07/22 (2.5 mg base)/3 mL nebulization Of Breath/Wheezing #90 mL soln prednisone 10 mg tablet 40 mg (4 x 10 mg) PO DAILY # 4 tabs 10/07/22 albuterol sulfate 90 mcg/actuation 2 puff inhalation Q 4-6H PRN 11/16/23 aerosol inhaler shortness of breath or wheez ing #6.7 grams benzonatate 100 mg capsule 100 mg PO TID PRN cough #14 caps 11/16/23 prednisone 20 mg tablet 40 mg (2 x 20 mg) PO DAILY 5 days 11/16/23 #10 tabs dicyclomine 10 mg capsule 10 mg PO TID #20 caps lorazepam 1 mg tablet (Ativan) 1 mg PO BID PRN anxiety #20 tabs 03/24/24 benzonatate 100 mg capsule 100 mg PO TID PRN cough 5 d ays #15 09/15/24 caps doxycycline hyclate 100 mg capsule 100 mg PO BID 7 day s #14 caps 09/15/24 fluticasone propionate 50 2 spray intranasal DAILY 5 d ays 09/15/24 mcg/actuation nasal #16 grams spray,suspension (Flonase Allergy Relief) loperamide 2 mg tablet 2 mg PO Q4H PRN loose stool #14 09/26/24 tabs ondansetron 4 mg disintegrating 4 mg PO Q6H PRN nausea and 09/26/24 tablet vomiting #14 tabs ciprofloxacin HCl 500 mg tablet 500 mg PO BID 10 days #20 tabs 07/05/25 metronidazole 500 mg tablet 500 mg PO BID 10 days #20 tabs 07/05/25 Allergies Allergy/AdvReac Type Severity Reaction Status Date / Time honey (HONEY) Allergy Severe RASH Verified 07/05/25 10:26 morphine (Morphine) Allergy Severe ITCHING, Verified 07/05/25 10:26 INCREASE ANXIETY, HALLUCINATION oxycodone (OXYCODONE) Allergy Intermediate ITCHING, Verified 07/05/25 10:26 INCREASE ANXIETY. amoxicillin (Amoxicillin) Allergy Mild SWELLING Verified 07/05/25 10:26 milk (Milk) AdvReac Mild DIARRHEA, Verified 07/05/25 10:26 ABDOMINAL PAIN (REGULAR MILK ONLY) Review of Systems Review of Systems Yes all other systems are reviewed and are negative PMFSH Past Medical History Attestation statement: The following information was validated with the patient. Source: old records reviewed and nursing notes reviewed Medical History Colitis Asthma Hypertension Adult hypothyroidism Surgical History H/O section History of appendectomy History of cholecystectomy H/O: hysterectomy Family History Family History Other No family history of coronary artery disease Social History Social History Household Members: None Housing: House Do you presently have visiting nurse or other home services: No Patient Tobacco Use Status: Never used Tobacco service: No Current occupational status: employed Physical Exam ED Vital Signs: Vital Signs - 24 hr 07/05/25 10:25 07/05/25 13:21 07/05/25 14:13 Temperature 97.4 F 98.2 F 98.2 F Pulse Rate 71 65 65 Respiratory Rate 18 14 14 Blood Pressure 153/78 H 139/66 139/66 Pulse Oximetry 97 98 98 Oxygen Delivery Method Room Air Room Air Room Air BMI result Body Mass Index 28.6 hypertensive General: Well appearing, in no acute distress. Skin: Warm, dry, intact. No rashes or lesions. Head: Normocephalic, atraumatic. EENT: Hearing is intact b/l. Conjunctiva clear.PERRLA. EOM intact. Moist mucous membranes.? Neck: Supple without LAD Cardiac: Chest wall symmetric. RRR Lungs: Normal respiratory effort without accessory muscle use. CTA bilaterally Abdomen: Soft, non-tender, non-distended. No rebound tenderness or guarding. Positive BS x4. no cvat. Back: No midline spinous or paraspinal tenderness. No step off deformity. Ext: Upper and lower extremities atraumatic, without tenderness, deformity, swelling or erythema Neuro: AOx3. Normal speech. Ambulating with steady gait. Course Course Course Narrative: This is an RME: Additional HPI, ROS, PE not included below will be deferred to primary provider. RME assessment and note performed by: Isis Choudhary PA-C This is a 69-year-old female, with a past medical history of asthma, HTN, hypothyroidism, who presents emergency department with complaints of subjective fevers, urinary frequency, dysuria, foul smelling urine, nausea, and back pain x 2 days. Patient with tenderness palpation in the suprapubic region, as well as some mild CVA tenderness bilaterally. Plan: Labs, UA, further ER evaluation needed. Reevaluation(s) Reevaluation #1: CBC without leukocytosis or left shift. H&H stable. Chemistry showing hypokalemia to 3.2, normal magnesium. She received 60 mg p.o. repletion in the ED. no other acute electrolyte abnormalities requiring intervention. No JACKI. Liver function at baseline. Urine is acutely infected. CT abdomen/pelvis shows uncomplicated mild diverticulitis of the descending and sigmoid colon. There is also suspected urethral diverticulum at the base of the bladder demonstrating wall thickening of the right side containing 3 stones, mural thickening of the right side appears stable to slightly increased. Developing neoplasm is not ruled in or ruled out. > discussed all workup results with patient. She reports improvement in discomfort after receiving Toradol. Her vitals have remained stable and she is afebrile. She clinically does not have pyelonephritis. She was treated with a dose of ceftriaxone in the ED today. Will send her home with ciprofloxacin and metronidazole for treatment of diverticulitis and urinary tract infection. I discussed incidental findings with patient which seem stable when compared to prior scans however sdvised her to follow up with PCP/urology outpatient as malignancy cannot be exlucded. Medical Decision Making Medical Decision Making [facility] Narrative: 69 yo F with PMH significant for hypothyroidism, HTN, asthma, and colitis presents to the ED with concerns of UTI. Differential diagnosis includes uti, renal colic, nephrolithiasis, pyelonephritis, bladder stones Plan for UA, labs, imaging, pain control, re-eval. Differential Diagnosis Differential Diagnoses: The differential diagnosis associated with the presentation includes as above. Admission/Observation not indicated Lab Data [facility] Lab Attestation statement: I reviewed the patient's lab results. as above 07/05/25 11:09 07/05/25 11:09 Labs: Lab Results 07/05/25 Range/Units 11:09 WBC 6.1 (4.8-10.8) X10*3/uL RBC 3.96 L (4.20-5.50) X10*6/uL Hgb 12.0 (12.0-16.0) g/dl Hct 35.4 L (37.0-47.0) % MCV 89.4 (80.0-98.0) fL MCH 30.3 (27.0-33.0) pg MCHC 33.9 (31.0-35.0) g/dl RDW 13.2 (11.0-16.0) % Plt Count 208 D (160-400) X10*3/uL MPV 11.4 (9.4-12.3) fL Immature Gran % (Auto) 0.2 (0.0-0.4) % Neut % (Auto) 54.8 (45-73) % Lymph % (Auto) 30.2 (20-40) % [place] % (Auto) 13.0 H (2-11) % Eos % (Auto) 1.3 (0-4) % Baso % (Auto) 0.5 (0-2) % Lymph # (Auto) 1.8 (1.2-4.9) X10*3/uL [place] # (Auto) 0.8 (0.1-1.2) X10*3/uL Eos # (Auto) 0.1 (0.0-0.4) X10*3/uL Baso # (Auto) 0.0 (0.0-0.2) X10*3/uL Abs Immat Gran (auto) 0.01 (0.00-0.03) X10*3/uL Absolute Neuts (auto) 3.3 (2.0-8.3) x10*3/uL Absolute Nucleated RBC 0.000 (0.0-0.012) X10*3/uL Nucleated RBC % (auto) 0.0 (0.0-0.2) /100WBC Sodium 139 (135-145) mmol/L Potassium 3.2 L (3.3-5.1) mmol/L Chloride 106 (96-108) mmol/L Carbon Dioxide 26 (22-29) mmol/L Anion Gap 10 L (12-20) BUN 15 (9-16) mg/dL Creatinine 0.81 (0.5-1.4) mg/dL Estim Creat Clear Calc 54.1 Estimated GFR > 60 Random Glucose 177 H (60-115) mg/dL Calcium 9.0 D (8.4-10.2) mg/dL Magnesium 1.9 (1.6-2.6) mg/dL Total Bilirubin 0.8 (0.0-1.0) mg/dL Direct Bilirubin 0.4 (0.0-0.5) mg/dL AST 51 H (5-31) U/L ALT 36 H (0-31) U/L Alkaline Phosphatase 107 (39-117) U/L Total Protein 7.3 (6.5-8.0) g/dL Albumin 3.9 (3.5-5.0) g/dL Urine Color Dark Yellow Urine Appearance Turbid Urine pH 5.5 (5.0-9.0) Ur Specific [place] >= 1.030 H (1.005-1.025) Urine Protein 100 (2+) H (Neg-Trace) mg/dL Urine Glucose (UA) Negative (Negative) mg/dL Urine Ketones Trace (Negative) mg/dL Urine Blood Small (1+) H (Negative) Urine Nitrite Positive H (Negative) Ur Leukocyte Esterase Moderate (2+) H (Negative) Urine RBC 3-5 H (0-2) /HPF Urine WBC >50 H (0-5) /HPF Ur Squamous Epith Cells 11-20 (0-2) /HPF Urine Bacteria 4+ (None Seen) Hyaline Casts 11-20 (0-2) /LPF COVID-19 (LAVINIA) Negative (Negative) COVID-19 Clin Com See Note Influenza Type A (KONSTANTIN) Negative (Negative) Influenza Type B (KONSTANTIN) Negative (Negative) Influenza A & B Note See Note Independent Interpretation I performed an independent interpretation of an: CT Scan Radiology Impression Discussion of test interpretation with radiology: I have reviewed the radiologist's reading. Radiologist Impression: Procedure(s): CT abdomen pelvis wo IV con Accession Number(s): [id number] cc: Sandee Marte; Joanna Jose~ Report Number: [id number]: Total DLP = 393.00 mGy-cm Reason for Exam: LLQ pain, UTI, N/V EXAMINATION: CT ABDOMEN AND PELVIS WITHOUT CONTRAST CLINICAL INFORMATION: Left lower quadrant pain, UTI, nausea and vomiting COMPARISON: March 23, 2024 TECHNIQUE: Multidetector volumetric imaging was performed from the superior aspect of the liver through the pubic symphysis. Sagittal and coronal reformatted images were obtained on the technologist's workstation. This CT examination was performed using dose optimization techniques as appropriate, variously including the following: *Automated exposure control *Adjustment of mA and/or kV according to patient size (this includes techniques or standardized protocols for targeted exams where dose is matched to indication/reason for exam; i.e. extremities or head) *Use of iterative reconstruction technique FINDINGS: LUNG BASES: The visualized lung bases are unremarkable. LIVER, GALLBLADDER, AND BILIARY TREE: The liver is normal in size, shape, and attenuation. No focal hepatic lesion or biliary ductal dilatation is present. The gallbladder surgically absent. There are clips in the gallbladder fossa. Extra hepatic bile duct is mildly prominent, similar to the prior. PANCREAS: Unremarkable. SPLEEN: Unremarkable. ADRENAL GLANDS: Unremarkable. KIDNEYS AND URETERS: The kidneys are normal in size, shape, and attenuation. No hydronephrosis, hydroureter, or calculi seen. No perinephric stranding. 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 This has been present since at least 2019. There is focal mural thickening on the right side of this cystic mass that was also present previously. It is difficult to determine with certainty whether or not the focal mural thickening has increased since the prior. GASTROINTESTINAL TRACT: Numerous pseudodiverticula are present in the descending and sigmoid colon. There is very mild fat stranding near the descending sigmoid colon junction, increased since the prior. The GI tract is otherwise unremarkable. ABDOMINAL WALL: No significant hernia is appreciated. LYMPH NODES: Again seen is a cystlike structure in the left inguinal canal measuring 1.2 x 2.2 cm, similar to the prior. It has been present since at least July 16, 2014. There are shotty periaortic nodes. VASCULAR: Unremarkable. PELVIC VISCERA: Hysterectomy has been performed. OSSEOUS STRUCTURES: Unremarkable. CT/CT abdomen pelvis wo IV con IMPRESSION: Suspected uncomplicated mild diverticulitis of the junction of descending and sigmoid colon. 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 It contains 3 stones, previously portions. Mural thickening on the right side appear stable to slightly increased. Developing neoplasm is not ruled in or ruled out. 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 Fleischner guidelines were followed. Electronically signed by: Jb Judge MD 07/05/2025 12:29 PM EDT RP Medications Administered Discontinued Medications Generic Name Dose Route Start Last Admin Trade Name Emerson PRN Reason Stop Dose Admin Ceftriaxone Sodium 1 gm 07/05/25 12:19 07/05/25 12:32 Ceftriaxone Sodium 1 Gm Vial IVPUSH 07/05/25 12:20 1 gm ONCE ONE Administration Ketorolac Tromethamine 30 mg 07/05/25 13:18 07/05/25 13:51 Ketorolac Tromethamine 30 Mg/Ml Vial IM 07/05/25 13:19 30 mg ONCE ONE Administration Potassium Chloride 40 meq 07/05/25 13:18 07/05/25 13:51 Potassium Chloride Packet 20 Meq Packet PO 07/05/25 13:19 40 meq ONCE ONE Administration Discharge Plan Discharge Clinical Impression: Diverticulitis, Acute UTI, Hypokalemia Patient Disposition: Home, Self-Care Instructions: Diverticulitis (ED), Urinary Tract Infection in Women (ED), Diverticulitis Diet (ED) Additional Instructions: You have low potassium levels. You were given repletion in ED. Your blood work is otherwise reassuring. Your urine is infected. The CT scan of your abdomen shows an infection of your colon termed diverticulitis. See home care instructions. You need to be treated with antibiotics. Two different antibiotics, ciprofloxacin and metronidazole, have been sent to your pharmacy. Please take these as prescribed over the next 10 days. Taken Motrin/Tylenol as needed at home for pain/fevers. Also, as discussed, there is abnormal thickening of your urinary bladder on scan. The recommendation is to follow up outpatient for further work up/ possible biopsy of the area. You may follow up with your PCP. I have also provided you with a referral to urology. Call them to establish care, they will not call you. Return with any new or worsening symptoms. Prescriptions: New ciprofloxacin HCl 500 mg tablet 500 mg PO BID 10 Days Qty: 20 0RF metronidazole 500 mg tablet 500 mg PO BID 10 Days Qty: 20 0RF No Action omeprazole 40 mg capsule,delayed release(DR/EC) 1 cap PO BID levothyroxine 88 mcg tablet 1 tab PO DAILY amlodipine 5 mg tablet 1 tab PO DAILY metoprolol tartrate 50 mg tablet 1 tab PO BID lisinopril 40 mg tablet 1 tab PO DAILY dextromethorphan-guaifenesin 10-100 mg/5 mL Syrup 5 ml PO Q6H PRN (Reason: Cough) Qty: 237 0RF guaifenesin [Mucinex] 600 mg Tablet Extended Release 12hr 600 mg PO BID Qty: 9 0RF prednisone 10 mg tablet 40 mg PO DAILY Qty: 4 0RF azithromycin 500 mg tablet 500 mg PO DAILY 3 Days Qty: 3 0RF mognqqsvve-jgkbdsbvkpuml-pgrq 50-325-40 mg Tablet 1 tab PO Q4H PRN (Reason: Migraine Headache) Qty: 12 0RF ipratropium-albuterol 0.5 mg-3 mg(2.5 mg base)/3 mL Solution For Nebulization 3 ml inhalation Q4H PRN (Reason: Shortness Of Breath/Wheezing) Qty: 90 0RF albuterol sulfate 90 mcg/actuation aerosol powdr breath activated 1 inh inhalation Q4-6H PRN (Reason: shortness of breath or wheezing) Qty: 1 0RF prednisone 20 mg tablet 40 mg PO DAILY 5 Days Qty: 10 0RF benzonatate 100 mg capsule 100 mg PO TID PRN (Reason: cough) Qty: 14 0RF albuterol sulfate 90 mcg/actuation HFA aerosol inhaler 2 puff inhalation Q4-6H PRN (Reason: shortness of breath or wheezing) Qty: 6.7 0RF doxycycline hyclate 100 mg capsule 100 mg PO BID 7 Days Qty: 14 0RF fluticasone propionate [Flonase Allergy Relief] 50 mcg/actuation spray,suspension 2 spray intranasal DAILY 5 Days Qty: 16 0RF Rx Instructions: administer into each nostril benzonatate 100 mg capsule 100 mg PO TID PRN (Reason: cough) 5 Days Qty: 15 0RF ondansetron 4 mg tablet,disintegrating 4 mg PO Q6H PRN (Reason: nausea and vomiting) Qty: 14 0RF loperamide 2 mg tablet 2 mg PO Q4H PRN (Reason: loose stool) Qty: 14 0RF Rx Instructions: administer after each loose stool until symptoms controlled; do not exceed 8 mg per 24 hrs dicyclomine 10 mg capsule 10 mg PO TID Qty: 20 0RF lorazepam [Ativan] 1 mg tablet 1 mg PO BID PRN (Reason: anxiety) Qty: 20 0RF Referrals: [facility] [Provider Group, Urology] Sandee Marte PA [Primary Care Provider, Hospitalist] Interventions: ED Discharge Assessment Last Done: 07/05/25 14:13 Discharge Date/Time: 07/05/25 14:13 Print Language: Taiwanese
[2025-07-05 11:15] LABS: MANUAL DIFF FLAG NO
[2025-07-05 11:18] LABS: Hematocrit 35.4 % (37.0-47.0); Hemoglobin 12.0 g/dl (12.0-16.0); Imm Gran Abs Auto 0.01 X10*3/uL (0.00-0.03); Imm Gran Pct Auto 0.2 % (0.0-0.4); Lymphocytes Absolute Auto 1.8 X10*3/uL (1.2-4.9); Mean Corpuscular HGB Conc 33.9 g/dl (31.0-35.0); Mean Corpuscular Hemoglobin 30.3 pg (27.0-33.0); Mean Corpuscular Volume 89.4 fL (80.0-98.0); NRBC Abs Auto 0.000 X10*3/uL (0.0-0.012); NRBC Pct Auto 0.0 /100WBC (0.0-0.2); Platelet Count 208 X10*3/uL (160-400); Red Blood Count 3.96 X10*6/uL (4.20-5.50); White Blood Count 6.1 X10*3/uL (4.8-10.8)
[2025-07-05 11:23] LABS: Appearance Urine Turbid; Glucose Urine UA Negative (Negative); PH 5.5 (5.0-9.0); Specific Gravity - Urine >= 1.030 (1.005-1.025); UMIC TRIGGER UACC YES
[2025-07-05 11:31] LABS: Alanine Aminotransferase 36 U/L (0-31); Albumin Level 3.9 g/dL (3.5-5.0); Alkaline Phosphatase 107 U/L (39-117); Anion Gap 10 (12-20); Aspartate Amino Transferase 51 U/L (5-31); Blood Urea Nitrogen 15 mg/dL (9-16); Calcium 9.0 mg/dL (8.4-10.2); Carbon Dioxide 26 mmol/L (22-29); Chloride 106 mmol/L (96-108); Creatinine Clr Calc Pharmacy 54.1; Estimated Glomerular Filt Rate > 60; Magnesium 1.9 mg/dL (1.6-2.6); Potassium 3.2 mmol/L (3.3-5.1); Sodium 139 mmol/L (135-145); Total Protein 7.3 g/dL (6.5-8.0)
[2025-07-05 11:38] LABS: UACC Culture Trigger YES
[2025-07-05 11:45] LABS: COVID-19 Test Negative (Negative); IDNOW Serial# 6674DD1D
[2025-07-05 11:49] LABS: IDNOW Serial# 08D9AD1C; Influenza B2 Negative (Negative)
--- OUTSIDE RECORDS SUMMARY | 2025-07-05 12:30 | XMS_ITS | Clinical Summary ---
Author Organization [facility] ity Address [address] [place] [address] Care Team Providers Care Outer Diameter Grinder Tool Name Role Phone Unavailable Primary Care Provider [...] 2003 Zoster Vaccines (1 of 2) 2003 Depression Screening 10/05/2024 COVID-19 Vaccine (1 - 2023-2 5 season) 2025 Influenza Vaccine (#1) 2025 RSV Immunization Adult Patie nts (1 [...]
[2025-07-05 13:21] VITALS: BP 139/66; PULSE 65; RESP 14; TEMP 36.8; O2SAT 98
[2025-07-05] MEDS: Potassium Chloride Packet 20 MEQ PACKET 40 MEQ PO (13:51)
[2025-07-05 14:13] VITALS: BP 139/66; PULSE 65; RESP 14; TEMP 36.8; O2SAT 98
== END 2025-07-05 14:13 | disposition home or self-care (01) ==
PROVIDERS: Physician Assistant Medical; Emergency Provider Emergency Medicine; PCP Physician Assistant
DX: N39.0 Urinary tract infection, site not specified (principal); E87.6 Hypokalemia; K57.92 Diverticulitis of intestine, part unspecified, without perforation or abscess without bleeding; R30.0 Dysuria; R35.0 Frequency of micturition; R35.1 Nocturia; Z03.818 Encounter for observation for suspected exposure to other biological agents ruled out
CPT/HCPCS: 74176; 80048; 80076; 81001; 83735; 85025; 87040; 87086; 87502; 87635; 96372; 96374; 99284; J0696; J1885

== ENCOUNTER → 2025-07-05 11:35 | Outpatient (BNV) | payer MEDICARE, SELFPAY | PROVIDERS: Emergency Provider Emergency Medicine; PCP Physician Assistant; Visit Provider Radiology Diagnostic Radiology | DX: N32.89 Other specified disorders of bladder (principal); N21.0 Calculus in bladder; R19.04 Left lower quadrant abdominal swelling, mass and lump | CPT/HCPCS: 74176 ==

== ENCOUNTER 2025-09-10 17:37 | Emergency (ER) | payer MEDICARE, SELFPAY ==
--- NOTE | ~2025-09-10 | CT_ITS ---
CLINICAL HISTORY: llq pain - PT REPORTS IV CONTRAST ALLERGY CT abdomen and pelvis without contrast Comparison: CT/[place]/SR - CT ABDOMEN PELVIS WITHOUT IV CONTRAST - 07/05/25 12:00 EDT Findings: No consolidation or effusion. 3 mm right lower lobe pulmonary nodule present on image number 9 of series 6. This is unchanged in appearance as compared to the prior examination. No further follow-up required given the duration of stability. The gallbladder is surgically absent. The liver appears nodular in contour, suggesting cirrhosis. The spleen, pancreas, and bilateral adrenal glands are unremarkable in appearance. solid organs are within normal limits. No renal stones. No significant hydronephrosis or hydroureter identified. No bowel obstruction, pneumoperitoneum, or pneumatosis. There is colonic diverticulosis with mild pericolonic edema at the proximal to mid sigmoid colon, consistent with acute diverticulitis. No pericolonic abscess. The uterus is surgically absent. Nonspecific 3 cm low-attenuation structure with internal calcifications redemonstrated along the inferior margin of the bladder near the vagina. A similar finding was present on the prior exam. There is borderline bladder wall thickening. Nonvisualization of the appendix. No acute fracture visualized. IMPRESSION: 1. Acute diverticulitis present at the proximal to mid sigmoid colon with mild pericolonic edema in this region. No pericolonic abscess. 2. Borderline bladder wall thickening. This is nonspecific. May consider correlation with urinalysis results if there is clinical concern for mild cystitis. 3. Nonspecific 3 cm cystic structure with internal calcification redemonstrated along the inferior margin of the bladder near the vagina, possibly consistent with a bladder or urethral diverticulum with intraluminal calculi. Additional diagnostic considerations are not excluded. 4. Nodular hepatic contour, suggesting cirrhosis. No significant sequela of portal venous hypertension appreciated. This document has been electronically signed by: Julien Solis MD on 09/11/2025 00:34:12
--- NOTE | ~2025-09-10 | XR_ITS ---
CLINICAL HISTORY: sob 2 view chest x-ray. Comparison: CR/SR - XR CHEST 2 VIEWS - 09/15/24 16:47 EST Findings: No consolidation, pneumothorax, or effusion. Heart size is at the upper limits of normal. Impression: 1. No acute cardiopulmonary process. No focal pulmonary consolidation. This document has been electronically signed by: Julien Solis MD on 09/10/2025 23:11:42
[2025-09-10 18:00] VITALS: BP 138/69; PULSE 82; RESP 18; TEMP 36.6; O2SAT 97; BMI 28.3
--- NOTE | 2025-09-10 18:00 | ED.GENADULT ---
HPI - General Adult General Chief complaint: General Medical Stated complaint: multiple symptoms Time Seen by Provider: 09/10/25 21:38 History of Present Illness HPI narrative: Patient is a 70-year-old female with a history of diverticulitis presents today with having lower abdominal pain also coughing fever dark urine that is been ongoing for about a week. Patient complaining of cough nonproductive. Generalized malaise. Abdominal pain on lower abdomen. Has a history of diverticulitis never had any surgery done in the past. Also has a long history of urinary tract infection in the past. Patient is from home. Related Data Home Medications ?Medication ?Instructions ?Recorded ?Confirmed amlodipine 5 mg tablet 1 tab PO DAILY 10/04/22 10/04/22 levothyroxine 88 mcg tablet 1 tab PO DAILY 10/04/22 10/04/22 lisinopril 40 mg tablet 1 tab PO DAILY 10/04/22 10/04/22 metoprolol tartrate 50 mg tablet 1 tab PO BID 10/04/22 10/04/22 omeprazole 40 mg capsule,delayed 1 cap PO BID 10/04/22 10/04/22 release Previous Rx's ?Medication ?Instructions ?Recorded albuterol sulfate 90 mcg/actuation 1 inh inhalation Q4-6H PRN 10/07/22 breath activated powder inhaler shortness of breath or wheezing #1 ea azithromycin 500 mg tablet 500 mg PO DAILY 3 days #3 tabs 10/07/22 [id number]-[id number]-[id number] 1 tab PO Q4H PRN Migraine Headache 10/07/22 50 mg-325 mg-40 mg tablet #12 tabs dextromethorphan-guaifenesin 10 5 ml PO Q6H PRN Cough #237 mL 10/07/22 mg-100 mg/5 mL oral syrup guaifenesin 600 mg tablet, 600 mg PO BID #9 tabs 10/07/22 extended release 12 hr (Mucinex) ipratropium 0.5 mg-albuterol 3 mg 3 ml inhalation Q4H PRN Shortness 10/07/22 (2.5 mg base)/3 mL nebulization Of Breath/Wheezing #90 mL soln prednisone 10 mg tablet 40 mg (4 x 10 mg) PO DAILY #4 tabs 10/07/22 albuterol sulfate 90 mcg/actuation 2 puff inhalation Q4-6H PRN 11/16/23 aerosol inhaler shortness of breath or wheezing #6.7 grams benzonatate 100 mg capsule 100 mg PO TID PRN cough #14 caps 11/16/23 prednisone 20 mg tablet 40 mg (2 x 20 mg) PO DAILY 5 days 11/16/23 #10 tabs dicyclomine 10 mg capsule 10 mg PO TID #20 caps 03/24/24 lorazepam 1 mg tablet (Ativan) 1 mg PO BID PRN anxiety #20 tabs 03/24/24 benzonatate 100 mg capsule 100 mg PO TID PRN cough 5 days #15 09/15/24 caps doxycycline hyclate 100 mg capsule 100 mg PO BID 7 days #14 caps 09/15/24 fluticasone propionate 50 2 spray intranasal DAILY 5 days 09/15/24 mcg/actuation nasal #16 grams spray,suspension (Flonase Allergy Relief) loperamide 2 mg tablet 2 mg PO Q4H PRN loose stool #14 09/26/24 tabs ondansetron 4 mg disintegrating 4 mg PO Q6H PRN nausea and 09/26/24 tablet vomiting #14 tabs ciprofloxacin HCl 500 mg tablet 500 mg PO BID 10 days #20 tabs 07/05/25 metronidazole 500 mg tablet 500 mg PO BID 10 days #20 tabs 07/05/25 ciprofloxacin HCl 500 mg tablet 500 mg PO BID 10 days #20 tabs 09/11/25 (Cipro) metronidazole 500 mg tablet 500 mg PO Q8H 10 days #30 tabs 09/11/25 Allergies Allergy/AdvReac Type Severity Reaction Status Date / Time honey (HONEY) Allergy Severe RASH Verified 09/10/25 18:04 morphine (Morphine) Allergy Severe ITCHING, Verified 09/10/25 18:04 INCREASE ANXIETY, HALLUCINATION oxycodone (OXYCODONE) Allergy Intermediate ITCHING, Verified 09/10/25 18:04 INCREASE ANXIETY. amoxicillin (Amoxicillin) Allergy Mild SWELLING Verified 09/10/25 18:04 milk (Milk) AdvReac Mild DIARRHEA, Verified 09/10/25 18:04 ABDOMINAL PAIN (REGULAR MILK ONLY) Review of Systems Review of Systems: Positive coughing positive upper respiratory symptoms no nausea vomiting diarrhea positive lower abdominal pain Yes all other systems are reviewed and are negative PMFSH Past Medical History Attestation statement: The following information was validated with the patient. Medical History Colitis Asthma Hypertension Adult hypothyroidism Surgical History H/O section History of appendectomy History of cholecystectomy H/O: hysterectomy Family History Family History Other No family history of coronary artery disease Social History Social History Household Members: None Housing: House Do you presently have visiting nurse or other home services: No Patient Tobacco Use Status: Never used Tobacco Smoked in Last 30 Days: No Use of substances other than those prescribed or required for medical reasons: No Advance Directives: No Advance Directives Information Provided: No Do you have a plan to hurt others: No Plan service: No Current occupational status: employed Physical Exam ED Exam Exam: Appearance: Alert. Oriented X3. No acute distress. Eyes: Pupils equal, round and reactive to light. ENT: Pharynx normal. Neck: Normal inspection. Neck supple. No lymph nodes noted. No crepitus CVS: Normal heart rate and rhythm. Pulses normal. Normal S1 and S2 Respiratory: No respiratory distress. Breath sounds normal. No Wheezing. No rales Abdomen: Soft and nontender. positive lower abdominal pain no rebound or guarding Skin: Skin warm and dry. Normal skin color. Normal skin turgor. Extremities: No lower extremity edema. Neurovascular intact to all extremities. No Lacerations. No Rash Neuro: Oriented X 3. No motor deficit. No sensory deficit. Moving all extermities. No slurred speech Vital Signs: Vital Signs - 24 hr 09/10/25 18:00 09/10/25 20:56 Temperature 97.8 F 97.4 F Pulse Rate 82 85 Respiratory Rate 18 16 Blood Pressure 138/69 163/71 H Pulse Oximetry 97 Oxygen Delivery Method Room Air Room Air BMI result Body Mass Index 28.3 Course Course Course Narrative: This is a Rapid Medical Exam performed in triage by Nadege aCmpbell PA-C. Full HPI, ROS and PE to be performed by primary ED provider. 70 yo F w/pmhx asthma, HTN, hypothyroid presenting to the ED c/o ALT[place]IRANO, cough, fever, urinary frequency/dysuria x1 week. PE: NAD, nontoxic appearing, ambulating with steady gait Plan: Labs, viral testing, UA Medications Administered Discontinued Medications Generic Name Dose Route Start Last Admin Trade Name Emerson PRN Reason Stop Dose Admin Hydromorphone HCl 0.5 mg 09/10/25 23:07 09/10/25 23:27 Hydromorphone Hcl 0.5 Mg/0.5 Ml Syringe IVPUSH 09/10/25 23:08 0.5 mg ONCE ONE Administration Protocol Metronidazole 500 mg in 100 mls @ 100 mls/hr 09/10/25 22:58 09/11/25 00:27 Flagyl IV 09/10/25 23:57 Infused ONCE ONE Infusion Sodium Chloride 1,000 mls @ 999 mls/hr 09/10/25 23:15 09/11/25 00:47 Ns IV 09/11/25 00:15 Infused .Q1H1M SALUD Infusion Levofloxacin 500 mg 09/10/25 23:01 09/10/25 23:27 Levofloxacin 500 Mg Tablet PO 09/10/25 23:02 500 mg ONCE ONE Administration Medical Decision Making Medical Decision Making [facility] Narrative: patient's urine is infected. CT scan showed diverticulitis no abscess no perforation. Patient has allergies to amoxicillin. Patient is started on Levaquin and Flagyl here will discharge home on Cipro and Flagyl. Close follow-up advised. Patient's urine is also infected. The antibiotic will help with both. Her white count is normal. Her electrolytes are normal. Lactate is 1 no signs of severe sepsis. COVID flu RSV were all negative. Will discharge patient home. My interpretation patient's chest x-ray is grossly negative. patient is to be discharged home. Well-appearing no distress. Differential Diagnosis Differential Diagnoses: The differential diagnosis associated with the presentation includes Admission/Observation Consideration of admission/observation: Escalation of care including admission/observation considered Lab Data [facility] Lab Attestation statement: I reviewed the patient's lab results. 09/10/25 18:14 09/10/25 18:14 Labs: Lab Results 09/10/25 09/10/25 Range/Units 18:14 23:26 WBC 8.3 (4.8-10.8) X10*3/uL RBC 4.84 D (4.20-5.50) X10*6/uL Hgb 14.2 (12.0-16.0) g/dl Hct 43.7 D (37.0-47.0) % MCV 90.3 (80.0-98.0) fL MCH 29.3 (27.0-33.0) pg MCHC 32.5 (31.0-35.0) g/dl RDW 12.4 (11.0-16.0) % Plt Count 284 D (160-400) X10*3/uL MPV 11.4 (9.4-12.3) fL Immature Gran % (Auto) 0.2 (0.0-0.4) % Neut % (Auto) 62.1 (45-73) % Lymph % (Auto) 24.0 (20-40) % [place] % (Auto) 10.2 (2-11) % Eos % (Auto) 3.0 (0-4) % Baso % (Auto) 0.5 (0-2) % Lymph # (Auto) 2.0 (1.2-4.9) X10*3/uL [place] # (Auto) 0.8 (0.1-1.2) X10*3/uL Eos # (Auto) 0.3 (0.0-0.4) X10*3/uL Baso # (Auto) 0.0 (0.0-0.2) X10*3/uL Abs Immat Gran (auto) 0.02 (0.00-0.03) X10*3/uL Absolute Neuts (auto) 5.1 (2.0-8.3) x10*3/uL Absolute Nucleated RBC 0.000 (0.0-0.012) X10*3/uL Nucleated RBC % (auto) 0.0 (0.0-0.2) /100WBC Sodium 141 (135-145) mmol/L Potassium 3.2 L (3.3-5.1) mmol/L Chloride 104 (96-108) mmol/L Carbon Dioxide 26 (22-29) mmol/L Anion Gap 14 (12-20) BUN 13 (9-16) mg/dL Creatinine 0.69 (0.5-1.4) mg/dL Estim Creat Clear Calc 62.3 Estimated GFR > 60 Random Glucose 148 H (60-115) mg/dL Lactic Acid 1.0 (0.5-2.0) mmol/L Calcium 9.8 D (8.4-10.2) mg/dL Magnesium 2.2 (1.6-2.6) mg/dL Total Bilirubin 0.5 (0.0-1.0) mg/dL Direct Bilirubin 0.2 (0.0-0.5) mg/dL AST 41 H (5-31) U/L ALT 41 H (0-31) U/L Alkaline Phosphatase 135 H (39-117) U/L Total Protein 8.4 H (6.5-8.0) g/dL Albumin 4.3 (3.5-5.0) g/dL Urine Color Yellow Urine Appearance Cloudy Urine pH 7.0 (5.0-9.0) Ur Specific [place] 1.020 (1.005-1.025) Urine Protein 30 (1+) H (Neg-Trace) mg/dL Urine Glucose (UA) Negative (Negative) mg/dL Urine Ketones Trace (Negative) mg/dL Urine Blood Negative (Negative) Urine Nitrite Negative (Negative) Ur Leukocyte Esterase Large (3+) H (Negative) Urine RBC 0-2 (0-2) /HPF Urine WBC >50 H (0-5) /HPF Ur Squamous Epith Cells 11-20 (0-2) /HPF Urine Bacteria 1+ (None Seen) Hyaline Casts 3-5 (0-2) /LPF Influenza Type A (PCR) NEGATIVE (Negative) Influenza Type B (PCR) NEGATIVE (Negative) RSV RNA Qual (PCR) NEGATIVE (Negative) SARS-CoV-2 RNA (RT-PCR) NEGATIVE (Negative) Independent Interpretation I performed an independent interpretation of an: Plain X-Ray ( Chest x-ray grossly negative) Radiology Impression Discussion of test interpretation with radiology: I have reviewed the radiologist's reading. External Record Review External record reviewed: Inpatient record Chronic Conditions history of diverticulitis Social Determinants Patient?s care significantly limited by Social Determinants of Health including: Problems related to primary support group Discharge Plan Discharge Clinical Impression: Diverticulitis, Urinary tract infection Patient Disposition: Home, Self-Care Instructions: Diverticulitis (DC), Urinary Tract Infection in Women (DC) Prescriptions: New ciprofloxacin HCl [Cipro] 500 mg tablet 500 mg PO BID 10 Days Qty: 20 0RF metronidazole 500 mg tablet 500 mg PO Q8H 10 Days Qty: 30 0RF No Action omeprazole 40 mg capsule,delayed release(DR/EC) 1 cap PO BID levothyroxine 88 mcg tablet 1 tab PO DAILY amlodipine 5 mg tablet 1 tab PO DAILY metoprolol tartrate 50 mg tablet 1 tab PO BID lisinopril 40 mg tablet 1 tab PO DAILY dextromethorphan-guaifenesin 10-100 mg/5 mL Syrup 5 ml PO Q6H PRN (Reason: Cough) Qty: 237 0RF guaifenesin [Mucinex] 600 mg Tablet Extended Release 12hr 600 mg PO BID Qty: 9 0RF prednisone 10 mg tablet 40 mg PO DAILY Qty: 4 0RF azithromycin 500 mg tablet 500 mg PO DAILY 3 Days Qty: 3 0RF wbndkrrhnj-lwjiposkospue-cbrw 50-325-40 mg Tablet 1 tab PO Q4H PRN (Reason: Migraine Headache) Qty: 12 0RF ipratropium-albuterol 0.5 mg-3 mg(2.5 mg base)/3 mL Solution For Nebulization 3 ml inhalation Q4H PRN (Reason: Shortness Of Breath/Wheezing) Qty: 90 0RF albuterol sulfate 90 mcg/actuation aerosol powdr breath activated 1 inh inhalation Q4-6H PRN (Reason: shortness of breath or wheezing) Qty: 1 0RF prednisone 20 mg tablet 40 mg PO DAILY 5 Days Qty: 10 0RF benzonatate 100 mg capsule 100 mg PO TID PRN (Reason: cough) Qty: 14 0RF albuterol sulfate 90 mcg/actuation HFA aerosol inhaler 2 puff inhalation Q4-6H PRN (Reason: shortness of breath or wheezing) Qty: 6.7 0RF doxycycline hyclate 100 mg capsule 100 mg PO BID 7 Days Qty: 14 0RF fluticasone propionate [Flonase Allergy Relief] 50 mcg/actuation spray,suspension 2 spray intranasal DAILY 5 Days Qty: 16 0RF Rx Instructions: administer into each nostril benzonatate 100 mg capsule 100 mg PO TID PRN (Reason: cough) 5 Days Qty: 15 0RF ondansetron 4 mg tablet,disintegrating 4 mg PO Q6H PRN (Reason: nausea and vomiting) Qty: 14 0RF loperamide 2 mg tablet 2 mg PO Q4H PRN (Reason: loose stool) Qty: 14 0RF Rx Instructions: administer after each loose stool until symptoms controlled; do not exceed 8 mg per 24 hrs dicyclomine 10 mg capsule 10 mg PO TID Qty: 20 0RF lorazepam [Ativan] 1 mg tablet 1 mg PO BID PRN (Reason: anxiety) Qty: 20 0RF ciprofloxacin HCl 500 mg tablet 500 mg PO BID 10 Days Qty: 20 0RF metronidazole 500 mg tablet 500 mg PO BID 10 Days Qty: 20 0RF Print Language: Canadian
[2025-09-10 18:21] LABS: MANUAL DIFF FLAG NO
[2025-09-10 18:23] LABS: Hematocrit 43.7 % (37.0-47.0); Hemoglobin 14.2 g/dl (12.0-16.0); Imm Gran Abs Auto 0.02 X10*3/uL (0.00-0.03); Imm Gran Pct Auto 0.2 % (0.0-0.4); Lymphocytes Absolute Auto 2.0 X10*3/uL (1.2-4.9); Mean Corpuscular HGB Conc 32.5 g/dl (31.0-35.0); Mean Corpuscular Hemoglobin 29.3 pg (27.0-33.0); Mean Corpuscular Volume 90.3 fL (80.0-98.0); NRBC Abs Auto 0.000 X10*3/uL (0.0-0.012); NRBC Pct Auto 0.0 /100WBC (0.0-0.2); Platelet Count 284 X10*3/uL (160-400); Red Blood Count 4.84 X10*6/uL (4.20-5.50); White Blood Count 8.3 X10*3/uL (4.8-10.8)
[2025-09-10 18:24] LABS: Appearance Urine Cloudy; Glucose Urine UA Negative (Negative); PH 7.0 (5.0-9.0); Specific Gravity - Urine 1.020 (1.005-1.025); UMIC TRIGGER UACC YES
[2025-09-10 18:29] LABS: UACC Culture Trigger YES
[2025-09-10 18:39] LABS: Alanine Aminotransferase 41 U/L (0-31); Albumin Level 4.3 g/dL (3.5-5.0); Alkaline Phosphatase 135 U/L (39-117); Anion Gap 14 (12-20); Aspartate Amino Transferase 41 U/L (5-31); Blood Urea Nitrogen 13 mg/dL (9-16); Calcium 9.8 mg/dL (8.4-10.2); Carbon Dioxide 26 mmol/L (22-29); Chloride 104 mmol/L (96-108); Creatinine Clr Calc Pharmacy 62.3; Estimated Glomerular Filt Rate > 60; Magnesium 2.2 mg/dL (1.6-2.6); Potassium 3.2 mmol/L (3.3-5.1); Sodium 141 mmol/L (135-145); Total Protein 8.4 g/dL (6.5-8.0)
[2025-09-10 19:00] LABS: Resp Syncy Virus RNA Qual PCR NEGATIVE (Negative); SARS COV2 PCR INHOUSE NEGATIVE (Negative)
--- OUTSIDE RECORDS SUMMARY | 2025-09-10 20:14 | XMS_ITS | Clinical Summary ---
Author Organization [facility] [address] ity Address [address] [place] [address] Care Team Providers Care Manager Of Production Name Role Phone Unavailable Primary Care Provider [...] Depression Screening 10/05/2024 COVID-19 Vaccine (1 - 2024-2 6 season) 2025 Influenza Vaccine (#1) 2025 RSV [...]
[2025-09-10 20:56] VITALS: BP 163/71; PULSE 85; RESP 16; TEMP 36.3
[2025-09-10] MEDS: metroNIDAZOLE/NS 500 MG/100 ML PIGGYBACK 100 MG IV (23:27)
[2025-09-11 01:23] VITALS: BP 152/69; PULSE 74; RESP 16; TEMP 36.4; O2SAT 97
[2025-09-11 01:24] VITALS: BP 152/69; PULSE 74; RESP 16; TEMP 36.4; O2SAT 97
== END 2025-09-11 01:24 | disposition home or self-care (01) ==
PROVIDERS: Physician Assistant; Emergency Provider Emergency Medicine Emergency Medical Services
DX: K57.32 Diverticulitis of large intestine without perforation or abscess without bleeding (principal); N39.0 Urinary tract infection, site not specified; R51.9 Headache, unspecified; R05.9 Cough, unspecified; Z03.818 Encounter for observation for suspected exposure to other biological agents ruled out; I10 Essential (primary) hypertension; J45.909 Unspecified asthma, uncomplicated; Z79.899 Other long term (current) drug therapy
CPT/HCPCS: 36415; 71046; 74176; 80048; 80076; 81001; 83605; 83735; 85025; 87040; 87086; 87637; 96361; 96365; 96375; 99284; 99285; J1171; J1836

== ENCOUNTER → 2025-09-10 22:52 | Outpatient (BNV) | payer MEDICARE, SELFPAY | PROVIDERS: Emergency Provider Emergency Medicine Emergency Medical Services; Visit Provider Radiology Diagnostic Radiology | DX: K57.32 Diverticulitis of large intestine without perforation or abscess without bleeding (principal); N32.89 Other specified disorders of bladder; R06.02 Shortness of breath | CPT/HCPCS: 71046; 74176 ==

== ENCOUNTER 2025-09-26 11:01 | Outpatient (AMB) | payer MEDICARE, SELFPAY ==
--- NOTE | 2025-09-26 11:07 | A.OFFPC_ITS ---
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 amoxicillin (Amoxicillin) Allergy (Mild, Verified 09/26/25 11:09) SWELLING milk (Milk) Adverse Reaction (Mild, Verified 09/26/25 11:09) DIARRHEA, ABDOMINAL PAIN (REGULAR MILK ONLY) Medication List - Last Reconciled 09/26/25 by ERNA Lockett albuterol sulfate 90 mcg/actuation 1 inh inhalation Q4-6H PRN albuterol sulfate 90 mcg/actuation 2 puffs inhalation Q4-6H PRN amlodipine 1 tab PO DAILY xfbnhwhvsp-wrdqclpqlwsqw-cuoz 50-325-40 mg 1 tab PO Q4H PRN ciprofloxacin HCl (Cipro) 500 mg PO BID 10 days fluticasone propionate 50 mcg/actuation (Flonase Allergy Relief) 2 sprays intranasal DAILY 5 days ipratropium-albuterol 0.5 mg-3 mg(2.5 mg base)/3 mL 3 mL inhalation Q4H PRN levothyroxine 1 tab PO DAILY lisinopril 1 tab PO DAILY lorazepam (Ativan) 1 mg PO BID PRN metoprolol tartrate 1 tab PO BID omeprazole 1 cap PO BID ondansetron 4 mg PO Q6H PRN trazodone 25 - 50 mg (0.5 - 1 x 50 mg) PO BEDTIME PRN Tobacco use date assessed: 09/26/25 Fall risk assessment: 2 + Falls in past year Last assessed Fall Risk: 09/26/25 Dental Screening Dental Screen Date: 09/26/25 Did you have a dental visit in the last 12 months?: Yes Did you have a dental problem in the last 6 months where you did not have access to dental care?: No Was dental information given to patient?: Patient has dentist HPI HPI Comments History of Present Illness Details 70-year-old female with history of asthm a, colitis, hypertension, migraines, hypothyroidism presenting to the office today for management of chronic conditions and to establish care and for annual physical exam. Lives with her son, age 45, and feels safe there. 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 Exercises with walking. Only sugar in coffee once daily. Otherwise limits carbohydrates. Makes meals at home, Bakes, not fries. Rare alcohol use. No history of cigarette smoking. No drugs including MJ. Hypertension-blood pressure in the office 124/66. On Toprol, lisinopril, amlodipine Asthma-no maintenance medication. Albuterol PRN Migraines-Fioricet PRN. Intermittent. Can go weeks without headaches, but now daily. In mu-ism and forehead. Sharp/stabbing. Blurred vision. Light sensitive. Occ nausea, no vomiting. Fioricet is helpful. Has difficulty sleeping. Isomnia- as above. Colitis-following with GERD-omeprazole b.i.d. Anxiety-lorazepam 1 mg twice daily as needed, rx in ED in March Osteoporosis- takes 1000 units vit D daily. Walks for exercise. Declines Fosamx Concerns: ER 09/10- fever, nonproductive cough. Dx diverticulitis. Concern for UTI, but UC negative. DC with azithromycin and cipro. Predisone. Despite ciprofloxacin and Flagyl, continues to experience mild-moderate pain in the left lower quadrant. Has diarrhea at baseline, no worsening symptoms. No hematochezia. No nausea or vomiting. No radiation of the pain. Then thursday started with sinus pressure, decreased appetite, lost weight. Cough improved, worse at night. Subjective chills. Out of albuterol. Has taken doxycycline as well as azithromycin. No use of albuterol inhaler though she states she has not had 1 Health maintenance: Last screening mammogram 01/2024 Last DEXA scan 01/2024 showing osteoporosis Last colonoscopy Eye exams- [place] at the mall. Wears corrective lenses, no contacts. Dentist twice yearly Vaccines UTD Reviewed past medical, surgical, family, social history ROS: General: No fevers, malaise, unintentional weight loss HEENT: No blurred vision, diplopia. No sore throat, nasal congestion, rhinorrhea, sinus pain, ear pain. No hearing loss Neck - no adenopathy Cardiovascular: No chest pain, palpitations, or leg edema Respiratory: No shortness of breath, wheezing, cough Breast: No pain, palpable lumps, nipple inversion GI: No dysphagia, odynophagia, globus sensation. No abdominal pain, nausea, vomiting, diarrhea, constipation, melena, hematochezia : No dysuria, hematuria, increased urinary frequency, decreased urinary output. WELL HEAD PUMPER: No abn vaginal bleeding or discharge MSK: No myalgia, back pain, arthralgias Neuro: No headaches, weakness, paresthesias Psych: no depression/anxiery. No AH/VH. No SI/HI Skin: No rashes or lesions EXAM: Constitutional - Awake and Alert, No apparent distress Eyes - PERRLA, EOMI. Anicteric Ears - external ears normal, canals clear, TMs intact and pearly chacon with good cone of light Nose- septum midline, nares clear, no sinus tenderness Mouth/throat- mucosa moist, tongue and uvula midline, no erythema/edema or tonsillar adenopathy. Neck-trachea midline, thyroid symmetric without palpable nodules, no adenopathy Cardiovascular - S1S2, RRR, No edema Respiratory - Normal lung expansion, Normal respiratory effort, No respiratory distress, CTA bilaterally Gastrointestinal - NT / ND; +BS; No rebound or guarding - No CVA tenderness Extremities - no calf tenderness bilaterally, no swelling Musculoskeletal - Normal inspection, normal ROM Skin - Warm/Dry, no concerning lesions Neurological - Alert & oriented x3, CN II-XII in tact, 5/5 strength BUE and BLE, 2+ patellar reflexes, sensation intact Psychological - Appropriate affect PFSH Medical History Osteoporosis Migraines Colitis Asthma Hypertension Adult hypothyroidism Surgical History S/P tonsillectomy H/O section History of appendectomy History of cholecystectomy H/O: hysterectomy Family History Family/Other Breast cancer Family/Other Esophageal cancer Paternal Grandmother Stomach cancer Father Cardiomyopathy Other No family history of coronary artery disease Social History Household Members: None Housing: House Do you presently have visiting nurse or other home services: No Patient Tobacco Use Status: Never used Tobacco e-Cigarette/Vaping Use: Never Used service: No Current occupational status: employed 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 1. Little interest or pleasure in doing things: more than half the days 2. Feeling down, depressed, or hopeless: several days 3. Trouble falling or staying asleep, or sleeping too much: nearly every day 4. Feeling tired or having little energy: nearly every day 5. Poor appetite or overeating: nearly every day 6. Feeling bad about yourself - or that you are a failure or have let yourself or your family down: several days 7. Trouble concentrating on things, such as reading the newspaper or watching television: more than half the days 8. Moving or speaking so slowly that other people could have noticed. Or the opposite - being so fidgety or restless that you have been moving around a lot more than usual: more than half the days 9. Thoughts that you would be better off or of hurting yourself in some way: not at all Total score: 17 Depression Screening Interpretation: Positive (Reports this is situational, not interested in treatment) Depression Screening Follow-up: Other (As above) Depression Screening Done: Yes 40999 - PHQ-9 Billing: Yes Source: Developed by Drs. Eric Abbott, Jovita Nuno, Valentin Clements and colleagues, with an educational silvana from [employer]. Thrive Questionnaire I am a: Parent/Caregiver What is your living situation today?: I have a steady place to live Within the past 12 months, did the food you bought not last and you didn't have the money to get more?: Never true Within the past 12 months, did you worry whether your food would run out before you got money to buy more?: Never true Do you have trouble paying for medicines?: No Do you have trouble getting transportation to medical appointments?: No Do you have trouble paying your heating and electricity bill?: No Do you have trouble taking care of your child, family member or friend?: No Do you have trouble with day-to-day activities such as bathing, preparing meals, shopping, managing finances, etc.?: No Are you currently unemployed and looking for a job?: No Are you interested in more education?: No Please select the resources that you would like help with: None Currently or been in a relationship where the following occur: No concerns reported THRIVE Score: 0 Physical exam (Primary Care) Vital Signs: Last Vital Signs Temp 97.9 F 09/26/25 11:23 Pulse 78 09/26/25 11:23 Resp 16 09/26/25 11:23 BP 124/66 09/26/25 11:23 Pulse Ox 97 09/26/25 11:23 Oxygen Delivery Method Room Air 09/26/25 11:23 BMI result Body Mass Index 30.0 Tobacco/Smoking Status: Tobacco use Status Tobacco use date assessed 09/26/25 09/26/25 11:25 Patient Tobacco Use Status Never used Tobacco 09/26/25 11:08 e-Cigarette/Vaping Use Never Used 09/26/25 11:25 Depression Screening Interpretation: Positive (Reports this is situational, not interested in treatment) Depression Screening Follow-up: Other (As above) Currently or been in a relationship where the following occur: No concerns reported Coding Level of Care Code Est Pt Level 4 (82732) New Pt Prev Care >65yr (31934) Diagnoses Adult hypothyroidism E03.9 Hypertension I10 Asthma J45.909 Colitis K52.9 Migraines G43.909 Routine medical exam Z00.00 Chronic cough R05.3 Osteoporosis M81.0 Additional Codes PHQ-9 - 87490 - PHQ-9 Billing: Yes ([id number]) Assessment & Plan Assessment & Plan (1) Adult hypothyroidism: Code(s): E03.9 - Hypothyroidism, unspecified Category: Medical Plan: TSH with reflex free T4 ordered. Continue levothyroxine, has been without the medication however. (2) Hypertension: Code(s): I10 - Essential (primary) hypertension Category: Medical Plan: Controlled. Continue use of lisinopril, metoprolol, amlodipine. Low-sodium diet (3) Asthma: Code(s): J45.909 - Unspecified asthma, uncomplicated Category: Medical Plan: Controlled. Does have viral URI but no increased use of albuterol inhaler (4) Colitis: Code(s): K52.9 - Noninfective gastroenteritis and colitis, unspecified Category: Medical Plan: Versus diverticulitis based on review of CT scan. She was treated appropriately with both ciprofloxacin and Flagyl and completed course. Still has some mild pain. Possibly IBS related as she does sometimes alternate between diarrhea and constipation. Trial dicyclomine. Counseled on dosing and side effects. Referred to Gastroenterology (5) Migraines: Code(s): G43.909 - Migraine, unspecified, not intractable, without status migrainosus Category: Medical Plan: Question if insomnia is a causative factor in her migraines. Trial trazodone to help with insomnia and use Fioricet if needed. If no improvements, reach out to the office and can consider referral to Neurology (6) Routine medical exam: Code(s): Z00.00 - Encounter for general adult medical examination without abnormal findings Category: Medical Plan: 70-year-old female presenting for management of chronic conditions, to establish care and for annual physical exam. Plan as below (7) Chronic cough: Code(s): R05.3 - Chronic cough Category: Medical Plan: Lungs are clear bilaterally. No improvement with azithromycin or doxycycline. Referred for PFT as well as pulmonology evaluation (8) Osteoporosis: Code(s): M81.0 - Age-related osteoporosis without current pathological fracture Category: Medical Plan: Advised to take calcium and vitamin-D. Will check vitamin-D level today. Did discuss DEXA scan results. Declines alendronate at this time. However, interested in referral to endocrinology to discuss additional options Plan Routine screening labs as ordered below Referred for mammo and colonoscopy. Continue following for annual skin exams and use sun protection Annual eye exams Dental exams twice yearly Wear seat belt in car Recommend regular exercise and healthy diet Liver elastography ultrasound ordered due to question of hepatic cirrhosis on CT scan. She is also referred to Gastroenterology Orders: Orders MM tomosynthesis screening BI Today Z12.31 - Encounter for screening mammogram for malignant neoplasm of breast Basic Metabolic Panel Today Z00.00 - Encounter for general adult medical examination without abnormal findings, Z51.89 - Encounter for other specified aftercare, Z76.89 - Persons encountering health services in other specified circumstances Hemoglobin A1c Today Z00.00 - Encounter for general adult medical examination without abnormal findings, Z51.89 - Encounter for other specified aftercare, Z76.89 - Persons encountering health services in other specified circumstances Lipid Panel Today Z00.00 - Encounter for general adult medical examination without abnormal findings, Z51.89 - Encounter for other specified aftercare, Z76.89 - Persons encountering health services in other specified circumstances Liver Panel Today Z00.00 - Encounter for general adult medical examination without abnormal findings, Z51.89 - Encounter for other specified aftercare, Z76.89 - Persons encountering health services in other specified circumstances TSH reflex Free T4 Today Z00.00 - Encounter for general adult medical examination without abnormal findings, Z51.89 - Encounter for other specified aftercare, Z76.89 - Persons encountering health services in other specified circumstances Vitamin D 25-OH Total Today Z00.00 - Encounter for general adult medical examination without abnormal findings, Z51.89 - Encounter for other specified aftercare, Z76.89 - Persons encountering health services in other specified circumstances Complete Blood Count Auto Diff Today Z00.00 - Encounter for general adult medical examination without abnormal findings, Z51.89 - Encounter for other specified aftercare, Z76.89 - Persons encountering health services in other specified circumstances US abdomen howard w elastography Today R10.32 - Left lower quadrant pain, R93.2 - Abnormal findings on diagnostic imaging of liver and biliary tract PFT pulmonary function test Today J45.909 - Unspecified asthma, uncomplicated, R05.3 - Chronic cough Referrals Gastroenterology Referral Z12.11 - Encounter for screening for malignant neoplasm of colon Gastroenterology Referral R10.32 - Left lower quadrant pain, R93.2 - Abnormal findings on diagnostic imaging of liver and biliary tract, R93.5 - Abnormal findings on diagnostic imaging of other abdominal regions, including retroperitoneum Endocrinology Referral M81.0 - Age-related osteoporosis without current pathological fracture Pulmonology Referral R05.3 - Chronic cough Medications: New trazodone 25 - 50 mg (0.5 - 1 x 50 mg) PO BEDTIME PRN 90 tabs 3RF sleep dicyclomine 10 mg PO BID 90 caps 0RF loratadine (Allergy Relief (loratadine)) 10 mg PO DAILY 90 caps 0RF fluticasone propionate 50 mcg/actuation (Allergy Relief (fluticasone)) administer into each nostril 1 spray intranasal BID 16 grams 2RF
[2025-09-26 11:23] VITALS: BP 124/66; PULSE 78; RESP 16; TEMP 36.6; O2SAT 97
--- OUTSIDE RECORDS SUMMARY | 2025-09-26 12:21 | XMS_ITS | Clinical Summary ---
Author Organization [facility] ity Address [address] [place] [address] Care Team Providers Care [employer] Name Role Phone Unavailable Primary Care Provider [...]
== END 2025-09-26 12:16 | disposition home or self-care (01) ==
LOC: HO.HMCHD 11:01
PROVIDERS: Visit Provider Physician Assistant
DX: E03.9 Hypothyroidism, unspecified (principal); I10 Essential (primary) hypertension; J45.909 Unspecified asthma, uncomplicated; K52.9 Noninfective gastroenteritis and colitis, unspecified; G43.909 Migraine, unspecified, not intractable, without status migrainosus; R05.3 Chronic cough; M81.0 Age-related osteoporosis without current pathological fracture

== ENCOUNTER → 2025-09-26 11:01 | Outpatient (BNVA) | payer MEDICARE, SELFPAY | PROVIDERS: Visit Provider Physician Assistant | DX: Z00.00 Encounter for general adult medical examination without abnormal findings (principal); E03.9 Hypothyroidism, unspecified; I10 Essential (primary) hypertension; J45.909 Unspecified asthma, uncomplicated; K52.9 Noninfective gastroenteritis and colitis, unspecified; G43.909 Migraine, unspecified, not intractable, without status migrainosus; R05.3 Chronic cough; M81.0 Age-related osteoporosis without current pathological fracture | CPT/HCPCS: 96127; 99202 ==